=== PATIENT | male | born 1940 | race Caucasian/White ===

== ENCOUNTER 2021-11-17 11:57 | Inpatient (IN) ==
--- NOTE | 2021-11-17 12:36 | XRay Report ---
XR chest 1V portable CLINICAL HISTORY: Atypical chest pain TECHNIQUE: Single frontal radiograph of the chest was obtained. Comparison: None available at the time of this dictation. FINDINGS: No lines and tubes are seen. The cardiomediastinal silhouette is normal. Left pleural effusion is see n. Lungs are underinflated and there is a left retrocardiac opacity. IMPRESSION: 1. Left retrocardiac opacity which may represent atelectasis, pneumonia, and/or aspiration. 2. Left pleural effusion. ACT 112: Negative or not required by law. Electronically signed by: Arron Don M.D. 11/17/2021 12:35 PM
[2021-11-17 12:58] LABS: Basophils # (auto) 0.03 K/uL (0-0.2); Basophils % (auto) 0.5 %; Eosinophils # (auto) 0.12 K/uL (0-0.5); Eosinophils % (auto) 2.1 %; Hematocrit (blood only) 32.3 % (42-52); Hemoglobin 10.9 g/dL (14.0-18.0); Immature Granulocytes # (auto) 0.01 K/uL (0.00-0.02); Immature Granulocytes % (auto) 0.2 %; Lymphocytes # (auto) 0.85 K/uL (1.2-3.4); Mean Corpuscular Hemoglobin 30.4 pg (25-34); Mean Corpuscular Hgb Conc 33.7 g/dL (32-36); Mean Corpuscular Volume 90.2 fL (80-100); Mean Platelet Volume 10.3 fL (7.4-10.4); Monocytes # (auto) 0.75 K/uL (0.11-0.59); Monocytes % (auto) 13.3 %; Neutrophils # (auto) 3.89 K/uL (1.4-6.5); Neutrophils % (auto) 68.9 %; Platelet Count 165 K/uL (130-400); RDW Coefficient of Variation 14.3 % (11.5-14.5); RDW Standard Deviation 46.7 fL (36.4-46.3); Red Blood Count 3.58 M/uL (4.7-6.1); White Blood Count 5.65 K/uL (4.8-10.8)
[2021-11-17 13:17] LABS: Albumin Globulin Ratio 0.7 (0.9-2); Albumin Level 2.5 gm/dl (3.4-5.0); BUN Creatinine Ratio 17.8 (10-20); Bilirubin,Total 1.3 mg/dl (0.2-1.0); Calcium 7.9 mg/dl (8.5-10.1); Est GFR (African American) 56.3 ml/min; Est GFR (Non-African American) 48.5 ml/min; Globulin 3.7 gm/dl (2.5-4.0); Potassium 3.7 mmol/L (3.5-5.1); Total Protein 6.2 gm/dl (6.0-8.3)
--- NOTE | 2021-11-17 13:17 | Emergency Department Note ---
Impression & Plan CHF (congestive heart failure), Anemia, CKD (chronic kidney disease) stage 4, GFR 15-29 ml/min, Cough, Breath shortness, Pleural effusion ED Provider Note NAME: MARTHA AGUILAR AGE: 81 SEX: M : 1940 ARRIVES VIA: Walk-In INFORMANT: Patient ED PROVIDER(S): Russ Radford DO CHIEF COMPLAINT: Shortness of breath, cough HPI: Patient is an 81-year-old male with a past medical history of CKD and anemia that presents to the ER referred in by the PCP for further evaluation. Patient has been having cough for the past 2 weeks associate with shortness of breath. Shortness of breath is worse with laying flat. He can no longer lay flat as he is significantly short of breath. He denies any chest pain. The cough has been persistent and dry. He had an x-ray done as an outpatient and there were concern for CHF versus infiltrate were unclear and sent him here. His medications have been adjusted at home as he passed out several weeks ago and they have been cutting back on his medications and during which time he has been having increased swelling in the legs as well. No dysuria, urgency, or frequency. No fevers. COVID test negative. ROS: See above HPI for pertinent positives & negatives. A total of 10 systems reviewed and were otherwise negative. PAST MEDICAL HISTORY:See Below PAST SURGICAL HISTORY:See Below FAMILY HISTORY:See Below SOCIAL HISTORY:See Below HOME MEDICATIONS:See Below ALLERGIES:See Below VITALS:See Below PHYSICAL EXAMINATION: GENERAL: Sitting up in bed, alert, well appearing, well nourished, no distress, non-toxic EYE EXAM: normal conjunctiva. OROPHARYNX: no exudate, no erythema, lips, buccal mucosa, and tongue normal and mucous membranes are moist NECK: supple, no nuchal rigidity, no adenopathy, non-tender LUNGS: Diminished at bilateral bases with crackles Normal chest wall mechanics HEART: no murmurs, S1 normal and S2 normal ABDOMEN: abdomen soft, non-tender, normo-active bowel sounds, no masses, no rebound or guarding. UPPER EXTREMITIES: upper extremities are grossly normal. LOWER EXTREMITIES: No pitting edema. NEURO EXAM: Normal sensorium, cranial nerves II-XII grossly intact, normal speech, no gross weakness of arms, no gross weakness of legs. MEDICAL DECISION MAKING: Patient is an 81-year-old male who presents ER for shortness of breath. IV was established blood work was obtained. He was referred in by the PCP. Labs showed no significant leukocytosis. Mild anemia at 10.9 consistent with previous. BMP was unremarkable. BMP was unremarkable with exception of a slightly elevated BUN at 24. T bili slightly up at 1.3. LFTs were unremarkable. Troponin was negative at 0.03. Lipase negative. COVID pending. Chest x-ray shows bilateral effusions. CT of the chest shows bilateral large effusions. He does have pitting edema and this is discussed with the patient and daughter. He was updated at bedside. Be admitted for further work-up. Triage Nursing notes reviewed. Limited review of prior medical records performed Vital Signs: reviewed and remarkable for tachy Differential diagnosis: Differential diagnoses includes but is not limited to acute coronary syndrome, myocardial infarction, pericarditis, pulmonary embolus, aortic dissection, pneumonia, pneumothorax, musculoskeletal, shingles, esophageal. ER treatment provided: See below Diagnostics interpreted by me: ECG: Sinus tachycardia rate 104 Normal axis No PVCs Nonspecific ST wave changes in the inferior leads QTC 468 Cardiac Monitoring: An order was placed for continuous cardiac monitoring. The monitor shows a rate of 101 with sinusrhythm. Laboratory studies: As stated above and show below. 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 Feels Safe at Home: Yes Allergies Allergies Allergy/AdvReac Type Severity Reaction Status Date / Time omeprazole Allergy Unknown Unknown Unverified 11/17/21 14:40 pantoprazole Allergy Unknown Unknown Unverified 11/17/21 14:40 Sulfa (Sulfonamide Allergy Unknown UNKNOWN Unverified 11/17/21 14:40 Antibiotics) Home Meds Home Medications Medication Instructions Recorded Confirmed aspirin 81 mg tablet,delayed 81 mg PO DAILY 11/03/21 11/17/21 release atorvastatin 80 mg tablet 40 mg PO HS 11/03/21 11/17/21 Results & Data (ED) Vital Signs Vital Signs - 24 hr 11/17/21 12:01 11/17/21 12:24 Temperature 36.4 C L 36.7 C Temperature Source Temporal Artery Scan Oral Pulse Rate 109 H 102 H Pulse Rhythm Regular Respiratory Rate 20 18 Respiratory Depth Normal Blood Pressure [Left Arm] 133/70 Blood Pressure Mean [Left Arm] 91 Pulse Oximetry 96 96 Oxygen Delivery Method Room Air Sepsis Recent Fever Within 48 Hours No Sepsis New/Unexplained Change in Mental Status No Sepsis Action Taken by Nursing No Action Required Laboratory Data Result diagrams: 11/17/21 12:40 11/17/21 12:40 Lab Results 11/17/21 11/17/21 11/17/21 Range/Units 12:40 12:40 12:58 WBC 5.65 (4.8-10.8) K/uL RBC 3.58 L (4.7-6.1) M/uL Hgb 10.9 L (14.0-18.0) g/dL Hct 32.3 L (42-52) % MCV 90.2 (80-100) fL MCH 30.4 (25-34) pg MCHC 33.7 (32-36) g/dL RDW Std Deviation 46.7 H (36.4-46.3) fL RDW Coeff of Alberto 14.3 (11.5-14.5) % Plt Count 165 (130-400) K/uL MPV 10.3 (7.4-10.4) fL Immature Gran % (Auto) 0.2 % Neut % (Auto) 68.9 % Lymph % (Auto) 15.0 % Alfalfa % (Auto) 13.3 % Eos % (Auto) 2.1 % Baso % (Auto) 0.5 % Neut # (Auto) 3.89 (1.4-6.5) K/uL Lymph # (Auto) 0.85 L (1.2-3.4) K/uL Alfalfa # (Auto) 0.75 H (0.11-0.59) K/uL Eos # (Auto) 0.12 (0-0.5) K/uL Baso # (Auto) 0.03 (0-0.2) K/uL Immature Gran # (Auto) 0.01 (0.00-0.02) K/uL Sodium 135 L (136-145) mmol/L Potassium 3.7 (3.5-5.1) mmol/L Chloride 105 (98-107) mmol/L Carbon Dioxide 22 (21-32) mmol/L Anion Gap 8 (3-11) BUN 24 H (6-23) mg/dl Creatinine 1.35 (0.6-1.4) mg/dl Est Cr Clr Drug Dosing 39.0 ml/min Est GFR ( Amer) 56.3 ml/min Est GFR (Non-Af Amer) 48.5 ml/min BUN/Creatinine Ratio 17.8 (10-20) Glucose 114 H (70-99(Fasting)) mg/dl Calcium 7.9 L (8.5-10.1) mg/dl Total Bilirubin 1.3 H (0.2-1.0) mg/dl AST 41 H (13-39) U/L ALT 28 (7-52) U/L Alkaline Phosphatase 124 H (34-104) U/L Troponin I 0.03 (0-0.04) ng/ml B-Natriuretic Peptide 254 H (0-100) pg/ml Total Protein 6.2 (6.0-8.3) gm/dl Albumin 2.5 L (3.4-5.0) gm/dl Globulin 3.7 (2.5-4.0) gm/dl Albumin/Globulin Ratio 0.7 L (0.9-2) Lipase 22 (11-82) U/L Administered Medications Discontinued Medications Ioversol (Optiray 320 100ml) 94 ml IV ONCE ONE Stop: 11/17/21 13:53 Last Admin: 11/17/21 13:44 Dose: 94 ml Documented by: [id number] Imaging Data Radiologist's Impression: Chest X-Ray 11/17/21 12:20 XR chest 1V portable CLINICAL HISTORY: Atypical chest pain TECHNIQUE: Single frontal radiograph of the chest was obtained. Comparison: None available at the time of this dictation. FINDINGS: No lines and tubes are seen. The cardiomediastinal silhouette is normal. Left pleural effusion is seen. Lungs are underinflated and there is a left retrocardiac opacity. IMPRESSION: 1. Left retrocardiac opacity which may represent atelectasis, pneumonia, and/or aspiration. 2. Left pleural effusion. ACT 112: Negative or not required by law. Electronically signed by: Arron Don M.D. 11/17/2021 12:[address] 11/17/21 13:13 CT chest diagnostic w con CLINICAL HISTORY: ? rll infiltrate vs CHF TECHNIQUE: Multidetector row helical CT of the chest was performed. Coronal and sagittal reformations were obtained. Automated dose lowering techniques and/or adjustment according to patient size were utilized for this exam. Comparison: None available at the time of this dictation. FINDINGS: Lungs and pleura: Large bilateral pleural effusions are seen, with associated atelectasis. Heart and pericardium: Heart size is normal. No pericardial effusion. Vessels: Severe atherosclerotic changes in the aorta and coronary arteries. Mediastinum and james: Unremarkable. Chest wall and lower neck: Unremarkable. Abdomen: Partial visualization of cirrhosis and large ascites. Bones: Degenerative changes in the thoracic spine. IMPRESSION: 1. Large bilateral pleural effusions with associated atelectasis. No definite evidence of pneumonia is seen. 2. Partial visualization of cirrhosis and large ascites. ACT 112: Negative or not required by law. Electronically signed by: Arron Don M.D. 11/17/2021 1:54 PM Discharge Plan Visit Data Chief Complaint: Cough Stated Complaint: FLUID IN L LUNG, COUGH, PASBLE HEART FAILURE ED Provider: Russ Radford Discharge Problem: CHF (congestive heart failure), Anemia, CKD (chronic kidney disease) stage 4, GFR 15-29 ml/min, Cough, Breath shortness, Pleural effusion Forms Stand Alone Forms: [employer] Prescriptions Prescriptions: No Action atorvastatin 80 mg Tablet 40 mg PO HS RF: 0 aspirin [Aspir-81] 81 mg Tablet,Delayed Release (Dr/Ec) 81 mg PO DAILY RF: 0 Referrals Referrals: PCP,NO [Primary Care Provider] -
[2021-11-17] MEDS ORDERED: OPTIRAY 320 100ml IV ONE (13:52)
--- NOTE | 2021-11-17 13:56 | CT Scan Report ---
CT chest diagnostic w con CLINICAL HISTORY: ? rll infiltrate vs CHF TECHNIQUE: Multidetector row helical CT of the chest was performed. Coronal and sagittal reformations were obtained. Automated dose lowering techniques and/or adjustment according to patient size were u tilized for this exam. Comparison: None available at the time of this dictation. FINDINGS: Lungs and pleura: Large bilateral pleural effusions are seen, with associated atelectasis. Heart and pericardium: Heart size is normal. No pericardial effusion. Vessels: Severe atherosclerotic changes in the aorta and coronary arteries. Mediastinum and james: Unremarkable. Chest wall and lower neck: Unremarkable. Abdomen: Partial visualization of cirrhosis and large ascites. Bones: Degenerative changes in the thoracic spine. IMPRESSION: 1. Large bilateral pleural effusions with associated atelectasis. No definite evidence of pneumonia is seen. 2. Partial visualization of cirrhosis and large ascites. ACT 112: Negative or not required by law. Electronically signed by: Arron Don M.D. 11/17/2021 1:54 PM
[2021-11-17 14:25] LABS: Troponin I 0.03 ng/ml (0-0.04)
--- NOTE | 2021-11-17 15:00 | History & Physical Report ---
Date of Service November 17, 2021 Assessment & Plan (1) Volume overload: (2) Pleural effusion: Plan: Cough Patient is 81-year-old male with PMH DMII, HTN, dyslipidemia, CAD s/p angioplasty 1985, RO, CKD III, anemia of chronic disease presented to ER with complaint of progressive SOB, orthopnea, BLE edema x 3 weeks. Denies any known weight gain. In ER pt afebrile, no hypoxia. No leukocytosis. BNP: 254 CT Chest: Large bilateral pleural effusions with associated atelectasis. No definite evidence of pneumonia is seen. Partial visualization of cirrhosis and large ascites. DDX: CHF vs decompensated cirrhosis vs combination Cough x 3 months. Initially thought to be BILL related cough and lisinopril decreased and then discontinued. Off for 2 weeks with no change in cough. No leukocytosis. No infiltrate. COVID-19 PCR: pending. Suspect cough secondary to fluid Monitor I's & O's, daily weight, low sodium diet Lasix 20mg IV now, monitor response Echo CBC, CMP in am (3) RO (nonalcoholic steatohepatitis): (4) Ascites: Plan: History RO Patient unaware of any diagnosis of cirrhosis, ascites, portal hypertension, varices in past. Denies h/o paracentesis in past. CT Chest with partial visualization of abdomen and reports partial visualization of cirrhosis and large ascites. T: bili: 1.3, AST: 41, ALT: 28, Alk Phos: 124. INR: 1.2 Obtain US abdomen diagnostic and therapeutic paracentesis Lasix 20mg IV and monitor No abdominal pain, fever or leukocytosis. SBP less likely at this time May need to consider GI consult (5) HTN (hypertension): Plan: Recent hypotensive. Now off all meds. Previously on diltiazem. Was on HCTZ that was d/c secondary to hyponatremia. Lisinopril d/c secondary to cough. Normotensive now Monitor BP (6) CAD (coronary atherosclerotic disease): Plan: S/P angioplasty in 1985 (7) CKD (chronic kidney disease), stage III: Plan: Cr: 1.35. Outpatient PCP note reports baseline Cr: 1.5 Recent DICK on CKD with Cr up in the 2's. Metformin, HCTZ discontinued (8) Diabetes mellitus, type II: Plan: A1c: 6.7 on 08/2021 Previous on metformin which has been discontinued secondary to CKD Was started on alogliptin which was recently discontinued secondary to suspected CHF Novolog sliding scale per protocol (9) Dyslipidemia: Plan: Continue atorvastatin (10) Anemia: Plan: History anemia of chronic disease Outpatient PCP note reports normal B12, folate and iron store levels. Reported baseline>11 Hgb: 10.9 Monitor H&H DVT Prophylaxis -Heparin SQ Full Code as per discussion with pt Follows with Dr Arron Denny for routine care Pt was seen and care coordinated with Dr Springer. See addendum History of Present Illness Chief Complaint: SOB Primary Care Provider: Dr Arron Denny - [facility] Patient is 81-year-old male with PMH DMII, HTN, dyslipidemia, CAD s/p angiopl asty 1985, RO, CKD III, anemia of chronic disease presented to ER with complaint of shortness of breath x 3 weeks. Patient reports has had non- productive cough for several months. Patient followed with PCP in 08/2021 for cough. At that time it was noted that he had hyponatremia, DICK on CKD. His HCTZ was discontinued. Lisinopril was decreased from 10 mg to 5 mg with plans to discontinue secondary to possible BILL related cough. His metformin was stopped and alogliptin was started secondary to DICK. 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 Follow-up with PCP 11/04/2021 and his off diltiazem and lisinopril secondary to hypotension. Chest x-ray was obtained and showed left pleural effusion. Alogliptin was held secondary to suspected heart failure. Patient reports progressive SOB x 3 weeks. Initially started with SOB with exertion. Now with orthopnea. Has been having to sleep in recliner. He has noticed BLE edema. His daughter in law has noticed increased abdominal distention. He reports has not noticed any weight gain in past 2 weeks. Denies any further dizziness or near syncopal episodes. Denies fever/chills, diaphoresis, N/V/D/C, BRAGG, vision changes, neck pain, CP, palpitations, hemoptysis, sore throat, choking, otalgia, rhinorrhea, abdominal pain, paresthesias, weakness, extremity weakness, extremity edema, rashes, urinary symptoms. Denies any history of known cirrhosis, paracentesis. Allergies Allergy/AdvReac Type Severity Reaction Status Date / Time omeprazole Allergy Unknown Unknown Unverified 11/17/21 14:40 pantoprazole Allergy Unknown Unknown Unverified 11/17/21 14:40 Sulfa (Sulfonamide Allergy Unknown UNKNOWN Unverified 11/17/21 14:40 Antibiotics) Home Medications Medication Instructions Recorded Confirmed Type aspirin 81 mg tablet,delayed 81 mg PO DAILY 11/03/21 11/17/21 History release atorvastatin 80 mg tablet 40 mg PO HS 11/03/21 11/17/21 History Past Med/Surg History Medical History (Updated 11/17/21 @ 16:25 by Melida Reeves PA-C) Anemia CAD (coronary atherosclerotic disease) CKD (chronic kidney disease), stage III Diabetes mellitus, type II Dyslipidemia HTN (hypertension) RO (nonalcoholic steatohepatitis) Surgical History (Updated 11/17/21 @ 16:02 by Melida Reeves PA-C) H/O coronary angioplasty Hx of tonsillectomy Social History Smoking Status: Never smoker Hx Alcohol Use: No Hx Substance Use: No Preferred Language: Czech 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 Safe at Home: Yes Review of Systems Review of Systems: All systems reviewed & are unremarkable except as noted in HPI & below Physical Exam Physical Exam: General: no distress, WDWN Head: normocephalic, atraumatic Eyes: PERRL, EOM's intact, conjunctiva non-injected, anicteric ENT: normal inspection external ears, nose, mucous membranes moist Neck: supple, trachea midline, non-tender Lungs: no respiratory distress with sitting upright, +orthopnea with supine position, diminished breath sounds bilateral bases CV: RRR, no murmur, 2+ pretibial edema Abd: +distended, normal BS, soft, non-tender to palpation Ext: no cyanosis, no calf tenderness Neuro: A&O x 3, no focal deficits noted, normal affect Skin: warm, dry Results & Data Results & Data ([facility]) Vital Signs (Past 12 Hours) Vital Signs Temp Pulse Resp BP Pulse Ox 11/17/21 12:24 36.7 C 102 H 18 133/70 96 11/17/21 12:01 36.4 C L 109 H 20 96 Laboratory Results Short CBC 11/17/21 Range/Units 12:40 WBC 5.65 (4.8-10.8) K/uL Hgb 10.9 L (14.0-18.0) g/dL Hct 32.3 L (42-52) % Plt Count 165 (130-400) K/uL BMP 11/17/21 12:40 Sodium 135 L Potassium 3.7 Chloride 105 Carbon Dioxide 22 BUN 24 H Creatinine 1.35 Glucose 114 H Calcium 7.9 L Cardiac Enzymes 11/17/21 Range/Units 12:40 Troponin I 0.03 (0-0.04) ng/ml Liver Function 11/17/21 Range/Units 12:40 Total Bilirubin 1.3 H (0.2-1.0) mg/dl AST 41 H (13-39) U/L ALT 28 (7-52) U/L Alkaline Phosphatase 124 H (34-104) U/L Albumin 2.5 L (3.4-5.0) gm/dl Diagnostic Findings Chest X-Ray 11/17/21 12:20 XR chest 1V portable CLINICAL HISTORY: Atypical chest pain TECHNIQUE: Single frontal radiograph of the chest was obtained. Comparison: None available at the time of this dictation. FINDINGS: No lines and tubes are seen. The cardiomediastinal silhouette is normal. Left pleural effusion is seen. Lungs are underinflated and there is a left retrocardiac opacity. IMPRESSION: 1. Left retrocardiac opacity which may represent atelectasis, pneumonia, and/or aspiration. 2. Left pleural effusion. ACT 112: Negative or not required by law. Electronically signed by: Arron Don M.D. 11/17/2021 12:[address] 11/17/21 13:13 CT chest diagnostic w con CLINICAL HISTORY: ? rll infiltrate vs CHF TECHNIQUE: Multidetector row helical CT of the chest was performed. Coronal and sagittal reformations were obtained. Automated dose lowering techniques and/or adjustment according to patient size were utilized for this exam. Comparison: None available at the time of this dictation. FINDINGS: Lungs and pleura: Large bilateral pleural effusions are seen, with associated atelectasis. Heart and pericardium: Heart size is normal. No pericardial effusion. Vessels: Severe atherosclerotic changes in the aorta and coronary arteries. Mediastinum and james: Unremarkable. Chest wall and lower neck: Unremarkable. Abdomen: Partial visualization of cirrhosis and large ascites. Bones: Degenerative changes in the thoracic spine. IMPRESSION: 1. Large bilateral pleural effusions with associated atelectasis. No definite evidence of pneumonia is seen. 2. Partial visualization of cirrhosis and large ascites. ACT 112: Negative or not required by law. Electronically signed by: Arron Don M.D. 11/17/2021 1:54 PM Supervising Physician Co-Signing Physician Notes I have seen and examined the patient and have discussed the case with the provider above. I agree with the assessment and plan as stated. 81 yo M with hypervolemia and CHF syndrome evidenced by new onset orthopnea (sleeping in a recliner), dyspnea on exertion, and lower extremity edema. Also with cirrhosis that is a new diagnosis and ascites present with positive fluid wave on exam. Denies abd pain, fevers or chills. GRIGSBY with significantly decreased exercise tolerance. Reports cannot walk but a few feet without dyspnea. Occasional dry cough. Physical exam reveals WNWD in NAD, no tachypnea. Clear lungs to auscultation with diminished breath sounds at the bases bilaterally. CV S1/2 heard without m/g/r. 2+ pitting edema to bilateral lower extremities. Protuberant nontender abdomen that is not distended. +fluid wave. Extremities are warm and well perfused. Out of breath with minimal exertion. Mental status is clear. CN 2-12 grossly intact with no gross focal deficits. Generalized weakness with no gross focal deficits. Agree with plan for granda for strict I/O and comfort of patient, Lasix, echo, paracentesis in am. Continue care plan based on findings from diagnostic studies. Confirmed full code on admission. Son was at bedside and care plan explained with all questions answered. DO Gian (1) Anemia Anemia type: unspecified type Qualified Code(s): D64.9 - Anemia, unspecified
[2021-11-17 16:37] LABS: Influenza A virus by PCR Negative (Neg); Influenza B virus by PCR Negative (Neg); RSV by PCR Negative (Neg); SARS CoV2 RNA(COVID-19) InHosp NEGATIVE (Negative)
[2021-11-17] MEDS ORDERED: FUROSEMIDE INJ 20 MG/2 ML VIAL IV ONE (16:50)
[2021-11-17 16:54] LABS: INR 1.2 (0.9-1.1); Partial Thromboplastin Ratio 1.2; Partial Thromboplastin Time 30.4 Seconds (21.0-31.0)
[2021-11-17] MEDS ORDERED: FUROSEMIDE 40 MG/4 ML VIAL IV ONE (18:15)
[2021-11-17] MEDS ORDERED: ACETAMINOPHEN 325 MG TAB PO PRN (18:27)
[2021-11-17] MEDS ORDERED: CARBOHYDRATES FOR HYPOGLYCEMIA PO PRN (18:27)
[2021-11-17] MEDS ORDERED: POLYETHYLENE (MIRALAX) 17 GM PACK PO PRN (18:27)
[2021-11-17] MEDS ORDERED: GLUCAGON FOR INJ 1 MG VIAL SQ PRN (18:27)
[2021-11-17] MEDS ORDERED: DEXTROSE 50% 50 ML SYRINGE IV PRN (18:27)
[2021-11-17] MEDS ORDERED: GLUCOSE 10 TABS/TUBE PO PRN (18:27)
[2021-11-17] MEDS ORDERED: GLUCOSE 40% GEL 15 GM TUBE PO PRN (18:27)
[2021-11-17] MEDS: INSULIN ASPART PER UNIT SC SCH ×2 (19:52→22:41)
[2021-11-17] MEDS: HEPARIN SOD 5,000 UNIT/0.5 ML VIAL SQ SCH (22:31)
[2021-11-17] MEDS: ATORVASTATIN 40 MG TAB PO SCH (22:31)
--- NOTE | 2021-11-18 06:08 | Electrocardiogram Report ---
Test Reason : Blood Pressure : / mmHG Vent. Rate : 104 BPM Atrial Rate : 104 BPM P-R Int : 142 ms QRS Dur : 072 ms QT Int : 356 ms P-R-T Axes : 025 033 043 degrees QTc Int : 468 ms Sinus tachycardia Low voltage QRS Cannot rule out Anterior infarct , age undetermined Abnormal ECG When compared with ECG of 03-NOV-2021 09:28, Premature ventricular complexes are no longer Present Vent. rate has increased BY 44 BPM Minimal criteria for Anterior infarct are now Present Confirmed by Andrew Michaud ([id number]) on 11/18/2021 6:07:49 AM Referred By: ED Confirmed By:Andrew Michaud
[2021-11-18 06:18] LABS: Hematocrit (blood only) 31.3 % (42-52); Hemoglobin 10.6 g/dL (14.0-18.0); Mean Corpuscular Hemoglobin 30.5 pg (25-34); Mean Corpuscular Hgb Conc 33.9 g/dL (32-36); Mean Corpuscular Volume 89.9 fL (80-100); Mean Platelet Volume 10.5 fL (7.4-10.4); Platelet Count 154 K/uL (130-400); RDW Coefficient of Variation 14.5 % (11.5-14.5); RDW Standard Deviation 47.2 fL (36.4-46.3); Red Blood Count 3.48 M/uL (4.7-6.1); White Blood Count 5.66 K/uL (4.8-10.8)
[2021-11-18 06:54] LABS: Albumin Globulin Ratio 0.7 (0.9-2); Albumin Level 2.3 gm/dl (3.4-5.0); BUN Creatinine Ratio 16.7 (10-20); Bilirubin,Total 1.5 mg/dl (0.2-1.0); Calcium 7.8 mg/dl (8.5-10.1); Creatinine Clr Calc Pharmacy 39.9 ml/min; Est GFR (African American) 54.8 ml/min; Est GFR (Non-African American) 47.3 ml/min; Globulin 3.4 gm/dl (2.5-4.0); Potassium 3.8 mmol/L (3.5-5.1); Total Protein 5.7 gm/dl (6.0-8.3)
[2021-11-18] MEDS: FUROSEMIDE 40 MG/4 ML VIAL IV SCH (07:58)
[2021-11-18] MEDS: HEPARIN SOD 5,000 UNIT/0.5 ML VIAL SQ SCH ×2 (07:58→20:41)
[2021-11-18] MEDS: ASPIRIN 81 MG ECTAB PO SCH (07:58)
[2021-11-18] MEDS ORDERED: FUROSEMIDE INJ 20 MG/2 ML VIAL IV SCH (09:00)
[2021-11-18] MEDS: INSULIN ASPART PER UNIT SC SCH ×4 (09:10→20:37)
--- NOTE | 2021-11-18 10:02 | Ultrasound Report ---
ULTRASOUND GUIDED DIAGNOSTIC AND THERAPEUTIC PARACENTESIS CLINICAL HISTORY: Ascites. COMPARISON STUDY: CT of the abdomen and pelvis February 19, 2013. PROCEDURE: The risks, benefits, and alternatives to the procedure were discussed with the patient inc luding the risk of bleeding, infection and injury to adjacent structures. The patient agreed to the procedure and informed written consent was obtained. Following real-time ultrasound localization, the skin of the right lower quadrant was prepped and draped. Following local anesthesia with Xylocaine, the sheath paracentesis needle was inserted and approximately 3.2 liters of straw-colored fluid was r emoved by vacuum suction. The patient tolerated the procedure well and no immediate complications were evident. IMPRESSION: Ultrasound-guided paracentesis with removal of 3.2 liters of ascites. 1 L of ascites was sent to the laboratory for analysis as ordered. ACT 112: Negative or not required by law. Electronically signed by: Ammon Morales M.D. 11/18/2021 10:01 AM
[2021-11-18 10:38] LABS: Albumin Peritoneal Fluid < 0.6 g/dl; Glucose Peritoneal Fluid 112 mg/dl
[2021-11-18 10:43] LABS: LDH Peritoneal Fluid 75 U/L; Total Protein Peritoneal Fluid 1.2 g/dl
[2021-11-18 11:08] LABS: Appearance Peritoneal Fluid CLOUDY; Basophils, Fluid 0 %; Color Peritoneal Fluid AMBER; Eosinophils, Fluid 0 %; Lymphocytes, Fluid 29 %; Mono,Macrophage,Mesothelial 49 %; Neutrophils, Fluid 22 %; RBC Peritoneal Fluid (A) 6000 /uL; WBC Peritoneal Fluid (A) 326 /ul (0-300)
--- NOTE | 2021-11-18 14:24 | Hospitalist Progress Note ---
Date of Service November 18, 2021 Assessment & Plan (1) Volume overload: (2) Pleural effusion: Plan: Cough Patient is 81-year-old male with PMH DMII, HTN, dyslipidemia, CAD s/p angioplasty 1985, RO, CKD III, anemia of chronic disease presented to ER with complaint of progressive SOB, orthopnea, BLE edema x 3 weeks. Denies any known weight gain. In ER pt afebrile, no hypoxia. No leukocytosis. BNP: 254 CT Chest: Large bilateral pleural effusions with associated atelectasis. No definite evidence of pneumonia is seen. Partial visualization of cirrhosis and large ascites. DDX: CHF vs decompensated cirrhosis vs combination Cough x 3 months. Initially thought to be BILL related cough and lisinopril decreased and then discontinued. Off for 2 weeks with no change in cough. No leukocytosis. No infiltrate. COVID-19 PCR: HEAD: No headache, dizziness, or head injury.. Suspect cough secondary to fluid Monitor I's & O's, daily weight, low sodium diet Lasix 20mg IV now, monitor response Echo (3) RO (nonalcoholic steatohepatitis): (4) Ascites: Plan: History RO Patient unaware of any diagnosis of cirrhosis, ascites, portal hypertension, varices in past. Denies h/o paracentesis in past. CT Chest with partial visualization of abdomen and reports partial visualization of cirrhosis and large ascites. T: bili: 1.3, AST: 41, ALT: 28, Alk Phos: 124. INR: 1.2 US abdomen diagnostic and therapeutic paracentesis Lasix 20mg IV and monitor No abdominal pain, fever or leukocytosis. SBP less likely at this time (5) HTN (hypertension): Plan: Recent hypotensive. Now off all meds. Previously on diltiazem. Was on HCTZ that was d/c secondary to hyponatremia. Lisinopril d/c secondary to cough. Normotensive now Monitor BP (6) CAD (coronary atherosclerotic disease): Plan: S/P angioplasty in 1985 (7) CKD (chronic kidney disease), stage III: Plan: Cr: 1.35. Outpatient PCP note reports baseline Cr: 1.5 Recent DICK on CKD with Cr up in the 2's. Metformin and HCTZ discontinued (8) Diabetes mellitus, type II: Plan: A1c: 6.7 on 08/2021 Previous on metformin which has been discontinued secondary to CKD Was started on alogliptin which was recently discontinued secondary to suspected CHF Novolog sliding scale per protocol (9) Dyslipidemia: Plan: Continue atorvastatin (10) Anemia: Plan: History anemia of chronic disease Outpatient PCP note reports normal B12, folate and iron store levels. Reported baseline>11 Hgb: 10.9 Monitor H&H DVT Prophylaxis -Heparin SQ Full Code as per discussion with pt Follows with Dr Arron Denny for routine care Pt was seen and care coordinated with Dr Springer. See addendum Admission and Anticipated Discharge Date Admission Date: November 17, 2021 Subjective Patient seen, feeling better than yesterday. Results & Data Results & Data ([facility]) Vital Signs (Past 12 Hours) Vital Signs Pulse Resp BP Pulse Ox Pulse Ox 11/18/21 07:49 105 H 22 124/77 94 11/18/21 03:21 108 H 20 94 11/18/21 02:30 101 H 20 91/73 L 94 94 (1) Anemia Anemia type: unspecified type Qualified Code(s): D64.9 - Anemia, unspecified
[2021-11-18] MEDS: ATORVASTATIN 40 MG TAB PO SCH (20:41)
[2021-11-19 07:21] LABS: INR 1.3 (0.9-1.1); Prothrombin Time 12.8 Seconds (9.0-12.0)
[2021-11-19 07:30] LABS: Albumin Globulin Ratio 0.7 (0.9-2); Albumin Level 2.2 gm/dl (3.4-5.0); BUN Creatinine Ratio 17.2 (10-20); Bilirubin,Total 1.4 mg/dl (0.2-1.0); Calcium 7.6 mg/dl (8.5-10.1); Creatinine Clr Calc Pharmacy 33.8 ml/min; Est GFR (African American) 44.8 ml/min; Est GFR (Non-African American) 38.7 ml/min; Globulin 3.3 gm/dl (2.5-4.0); Potassium 3.7 mmol/L (3.5-5.1); Total Protein 5.5 gm/dl (6.0-8.3)
[2021-11-19] MEDS: INSULIN ASPART PER UNIT SC SCH ×4 (07:50→20:07)
[2021-11-19] MEDS: ASPIRIN 81 MG ECTAB PO SCH (07:50)
[2021-11-19] MEDS: HEPARIN SOD 5,000 UNIT/0.5 ML VIAL SQ SCH ×2 (07:51→20:08)
[2021-11-19] MEDS: FUROSEMIDE 40 MG/4 ML VIAL IV SCH (07:51)
--- NOTE | 2021-11-19 08:54 | Gastrointestinal Consultation ---
Date of Consultation November 19, 2021 Assessment & Plan (1) Ascites: 81 year old male w/ history of T2DM, HTN, dyslipidemia, CAD s/p angioplasty 1985, RO, CKD III, anemia of chronic disease admitted w/ ascites and SOB. Not formally diagnosed with liver disease but ABD US in 2013 at [facility] showed fatty liver and suspected liver fibrosis. Paracentesis 11/18 w/o evidence of SBP, SAAG 11/06 w/ low protein suspicious of liver disease. Please add on cytology collection to ascitic fluid ABD US Continue IV diuresis while admitted Consider low dose PO diuretics as OP but he notes issues with hypotension of recent, perhaps should be evaluated by PCP prior to initiation Low NA diet less than 2G No ETOH Tylenol less than 2G No NSAIDs OP GI follow up, OP EGD can be arranged at that appointment Will sign off. Recall as needed. Thank you for allowing us to participate in the care of this patient. Please call with any acute changes, questions or concerns. Please see addendum below with additional recommendation from my supervising physician. Supervising Physician Co-Signing Physician Notes I have seen and examined the patient with VENTURA Maki whose note reflects our findings and plan. Patient with fatt yliver in past and now admitted with CHF and volume overload as well as new ascites. Fluid studies s/o liver disease. Obtain liver imaging and continue with diuresis. Will need outpatient follow up. Outpatient EGD to be arranged to evaluate for varices. History of Present Illness Reason for Consultation: ?cirrhosis Requesting Physician: Pete Attending Physician: Alan Freeman DO History of Present Illness 81 year old male with history ot T2DM, HTN, dyslipidemia, CAD s/p angioplasty 1985, RO, CKD III, anemia of chronic disease admitted through the ED w/ SOB - GI asked to evaluate as he was noted to have large ascites. Pt notes that he has been told he has fatty liver in the past but was never formally diagnosed with cirrhosis. Does not recall seeing a GI/Hep department in past and denies any recent imaging or endoscopic evaluation. Feeling well from GI standpoint. Denies abd pain, nausea, vomiting. No GERD, dysphagia. Denies ETOH use Paracentesis 2021: no SBP, SAAG 1.7 w/ low total protein suspicious for liver disease ABD US 2013: Fatty infiltration/fibrosis of the liver Allergies Allergy/AdvReac Type Severity Reaction Status Date / Time omeprazole Allergy Unknown Unknown Unverified 11/17/21 14:40 pantoprazole Allergy Unknown Unknown Unverified 11/17/21 14:40 Sulfa (Sulfonamide Allergy Unknown UNKNOWN Unverified 11/17/21 14:40 Antibiotics) Home Medications Medication Instructions Recorded Confirmed Type aspirin 81 mg tablet,delayed 81 mg PO DAILY 11/03/21 11/17/21 History release atorvastatin 80 mg tablet 40 mg PO HS 11/03/21 11/17/21 History Patient History Medical History (Updated 11/18/21 @ 00:07 by Bill John) Anemia CAD (coronary atherosclerotic disease) CKD (chronic kidney disease), stage III Diabetes mellitus, type II Dyslipidemia HTN (hypertension) RO (nonalcoholic steatohepatitis) Surgical History (Updated 11/17/21 @ 16:02 by Melida Reeves PA-C) H/O coronary angioplasty Hx of tonsillectomy Social History Smoking Status: Never smoker Hx Alcohol Use: No Hx Substance Use: No Preferred Language: Wolof Communication Ability: Effective 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 marital status: Current Living Situation: Alone current occupational status: employed 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) Vital Signs (Past 12 Hours) Vital Signs Temp Pulse Pulse Resp BP Pulse Ox Pulse Ox 11/19/21 07:11 36.8 C 101 H 20 116/72 93 11/19/21 03:00 36.9 C 106 H 18 115/52 L 94 11/19/21 02:00 96 11/18/21 23:50 36.7 C 102 H 18 108/69 94 11/18/21 22:54 103 H 11/18/21 21:30 109 H Laboratory Results 11/19/21 11/19/21 11/19/21 Range/Units 07:02 06:36 06:36 PT 12.8 H (9.0-12.0) Seconds INR 1.3 H (0.9-1.1) Sodium 137 (136-145) mmol/L Potassium 3.7 (3.5-5.1) mmol/L Chloride 105 (98-107) mmol/L Carbon Dioxide 25 (21-32) mmol/L Anion Gap 7 (3-11) BUN 28 H (6-23) mg/dl Creatinine 1.63 H (0.6-1.4) mg/dl Est Cr Clr Drug Dosing 33.8 ml/min Est GFR ( Amer) 44.8 ml/min Est GFR (Non-Af Amer) 38.7 ml/min BUN/Creatinine Ratio 17.2 (10-20) Glucose 99 (70-99(Fasting)) mg/dl POC Glucose 108 H (70-99) mg/dl Calcium 7.6 L (8.5-10.1) mg/dl Total Bilirubin 1.4 H (0.2-1.0) mg/dl AST 36 (13-39) U/L ALT 27 (7-52) U/L Alkaline Phosphatase 113 H (34-104) U/L Total Protein 5.5 L (6.0-8.3) gm/dl Albumin 2.2 L (3.4-5.0) gm/dl Globulin 3.3 (2.5-4.0) gm/dl Albumin/Globulin Ratio 0.7 L (0.9-2) Fluid Neutrophils % % Fluid Lymphocytes % % Fluid Eosinophils % % Fluid Basophils % % Fluid Meso/Macro/[place] % % Fluid Comment Peritoneal Color Peritoneal Appearance Peritoneal WBC (0-300) /ul Peritoneal RBC /uL Peritoneal Tot Protein g/dl Peritoneal Albumin g/dl Peritoneal LDH U/L Peritoneal Glucose mg/dl 11/18/21 11/18/21 11/18/21 Range/Units 20:35 17:43 12:28 PT (9.0-12.0) Seconds INR (0.9-1.1) Sodium (136-145) mmol/L Potassium (3.5-5.1) mmol/L Chloride (98-107) mmol/L Carbon Dioxide (21-32) mmol/L Anion Gap (3-11) BUN (6-23) mg/dl Creatinine (0.6-1.4) mg/dl Est Cr Clr Drug Dosing ml/min Est GFR ( Amer) ml/min Est GFR (Non-Af Amer) ml/min BUN/Creatinine Ratio (10-20) Glucose (70-99(Fasting)) mg/dl POC Glucose 236 H 103 H 121 H (70-99) mg/dl Calcium (8.5-10.1) mg/dl Total Bilirubin (0.2-1.0) mg/dl AST (13-39) U/L ALT (7-52) U/L Alkaline Phosphatase (34-104) U/L Total Protein (6.0-8.3) gm/dl Albumin (3.4-5.0) gm/dl Globulin (2.5-4.0) gm/dl Albumin/Globulin Ratio (0.9-2) Fluid Neutrophils % % Fluid Lymphocytes % % Fluid Eosinophils % % Fluid Basophils % % Fluid Meso/Macro/[place] % % Fluid Comment Peritoneal Color Peritoneal Appearance Peritoneal WBC (0-300) /ul Peritoneal RBC /uL Peritoneal Tot Protein g/dl Peritoneal Albumin g/dl Peritoneal LDH U/L Peritoneal Glucose mg/dl 11/18/21 Range/Units 09:30 PT (9.0-12.0) Seconds INR (0.9-1.1) Sodium (136-145) mmol/L Potassium (3.5-5.1) mmol/L Chloride (98-107) mmol/L Carbon Dioxide (21-32) mmol/L Anion Gap (3-11) BUN (6-23) mg/dl Creatinine (0.6-1.4) mg/dl Est Cr Clr Drug Dosing ml/min Est GFR ( Amer) ml/min Est GFR (Non-Af Amer) ml/min BUN/Creatinine Ratio (10-20) Glucose (70-99(Fasting)) mg/dl POC Glucose (70-99) mg/dl Calcium (8.5-10.1) mg/dl Total Bilirubin (0.2-1.0) mg/dl AST (13-39) U/L ALT (7-52) U/L Alkaline Phosphatase (34-104) U/L Total Protein (6.0-8.3) gm/dl Albumin (3.4-5.0) gm/dl Globulin (2.5-4.0) gm/dl Albumin/Globulin Ratio (0.9-2) Fluid Neutrophils % 22 % Fluid Lymphocytes % 29 % Fluid Eosinophils % 0 % Fluid Basophils % 0 % Fluid Meso/Macro/[place] % 49 % Fluid Comment Peritoneal Color PENELOPE Peritoneal Appearance CLOUDY Peritoneal WBC 326 H (0-300) /ul Peritoneal RBC 6000 /uL Peritoneal Tot Protein 1.2 g/dl Peritoneal Albumin < 0.6 g/dl Peritoneal LDH 75 U/L Peritoneal Glucose 112 mg/dl
--- NOTE | 2021-11-19 10:37 | Ultrasound Report ---
ABDOMINAL ULTRASOUND, RIGHT UPPER QUADRANT HISTORY: ?cirrhosis. COMPARISON: Abdomen and pelvis CT 02/19/2013. Chest CT 11/17/2021. FINDINGS: Pancreas: The pancreatic head and tail are obscured by overlying bowel gas. The remaining portions of the pancreas are within normal limits. Liver: Nodular contour to the liver consistent with cirrhosis. The liver demonstrates a coarse echote xture. No definite hepatic masses. Gallbladder: Slightly prominent gallbladder wall measuring 3 mm likely due to the patient's cirrhosis . No gallstones identified. CBD: 5 mm. Right kidney: No hydronephrosis. Miscellaneous: Small amount of ascites and a right pleural effusion. IMPRESSION: 1. Cirrhotic liver morphology with a small amount of ascites and a right pleural effusion. 2. No gallstones. ACT 112: Negative or not required by law. Electronically signed by: Chris Simeon M.D. 11/19/2021 10:35 AM
--- NOTE | 2021-11-19 11:02 | Hospitalist Progress Note ---
Date of Service November 19, 2021 Assessment & Plan (1) Volume overload: (2) Pleural effusion: Plan: Cough Patient is 81-year-old male with PMH DMII, HTN, dyslipidemia, CAD s/p angioplasty 1985, RO, CKD III, anemia of chronic disease presented to ER with complaint of progressive SOB, orthopnea, BLE edema x 3 weeks. Denies any known weight gain. In ER pt afebrile, no hypoxia. No leukocytosis. BNP: 254 CT Chest: Large bilateral pleural effusions with associated atelectasis. No definite evidence of pneumonia is seen. Partial visualization of cirrhosis and large ascites. DDX: CHF vs decompensated cirrhosis vs combination Cough x 3 months. Initially thought to be BILL related cough and lisinopril decreased and then discontinued. Off for 2 weeks with no change in cough. No leukocytosis. No infiltrate. COVID-19 PCR: HEAD: No headache, dizziness, or head injury.. Suspect cough secondary to fluid Monitor I's & O's, daily weight, low sodium diet Lasix 20mg Daily and aldactone Echo done EF 65-70% CXR today (3) RO (nonalcoholic steatohepatitis): (4) Ascites: Plan: History RO Patient unaware of any diagnosis of cirrhosis, ascites, portal hypertension, varices in past. Denies h/o paracentesis in past. CT Chest with partial visualization of abdomen and reports partial visualization of cirrhosis and large ascites. T: bili: 1.3, AST: 41, ALT: 28, Alk Phos: 124. INR: 1.2 US abdomen diagnostic and therapeutic paracentesis Lasix 20mg IV add aldactone No abdominal pain, fever or leukocytosis. SBP less likely at this time (5) HTN (hypertension): Plan: Recent hypotensive. Now off all meds. Previously on diltiazem. Was on HCTZ that was d/c secondary to hyponatremia. Lisinopril d/c secondary to cough. Normotensive now Monitor BP (6) CAD (coronary atherosclerotic disease): Plan: S/P angioplasty in 1985 (7) CKD (chronic kidney disease), stage III: Plan: Cr: 1.63. Outpatient PCP note reports baseline Cr: 1.5 Recent DICK on CKD with Cr up in the 2's. Metformin and HCTZ discontinued (8) Diabetes mellitus, type II: Plan: A1c: 6.7 on 08/2021 Previous on metformin which has been discontinued secondary to CKD Was started on alogliptin which was recently discontinued secondary to suspected CHF Novolog sliding scale per protocol (9) Dyslipidemia: Plan: Continue atorvastatin (10) Anemia: Plan: History anemia of chronic disease Outpatient PCP note reports normal B12, folate and iron store levels. Reported baseline>11 Hgb: 10.9 Monitor H&H DVT Prophylaxis -Heparin SQ Full Code as per discussion with pt Follows with Dr Arron Denny for routine care ROS-No Headache, No Visual Changes, No Nausea, No Vomiting, No Fever, No Chills, No Neck Pain or Stiffness, No Chest Pain, No Palpitations, No SOB, No GRIGSBY, No Cough, No Sputum, No Wheezing, No Abdominal Pain, No Diarrhea, No Hematemesis, No Hemoptysis, No Unexpected Weight Loss, No Flank pain, No Melena, No Hematochezia, No Frequency, No Urgency, No Burning, No Hematuria, No Rashes, No Diaphoresis. Appetite is Normal Physical Exam Gen-AAO x 3, NAD, Afebrile Head-NCAT, EOMI, PERRLA, Anicteric Sclera, No Posterior Pharyngeal Erythema Neck-Supple, No JVD, No Thyromegaly, No Masses, No LAD, No Bruits Lungs-Clear to Auscultation Bilaterally, No Rales, No Rhonchi, No Wheezing, No Crepitus Chest-No S4, +S1, +S2, No S3, No Murmurs, No Rubs, No Gallops, No Ectopy Abdomen-Soft, Bowel Sounds Present, Non Tender, Non Distended, No Hepatomegaly, No Splenomegaly, No Palpable Masses, No Rebound, No Rigidity, No Guarding Musculoskeletal-Full Range of Motion Bilaterally, No CVAT Extremities-No Cyanosis, No Clubbing, No Edema Nuero-Cranial Nerves II-XII grossly intact, Motor WNL, DTRs WNL, Strength WNL, Non Focal Psych-Normal Mood Admission and Anticipated Discharge Date Admission Date: November 17, 2021 Subjective Patient seen, feeling better than yesterday. Results & Data Results & Data ([facility]) Vital Signs (Past 12 Hours) Vital Signs Temp Pulse Resp BP Pulse Ox Pulse Ox 11/19/21 07:11 36.8 C 101 H 20 116/72 93 11/19/21 03:00 36.9 C 106 H 18 115/52 L 94 11/19/21 02:00 96 11/18/21 23:50 36.7 C 102 H 18 108/69 94 (1) Anemia Anemia type: unspecified type Qualified Code(s): D64.9 - Anemia, unspecified
[2021-11-19] MEDS: SPIRONOLACTONE 25 MG TAB PO SCH (13:06)
--- NOTE | 2021-11-19 14:23 | XRay Report ---
TWO VIEW CHEST CLINICAL HISTORY: Pleural effusion. FINDINGS: PA and lateral chest radiographs are compared to chest x-ray and chest CT dated 11/17/2021. The heart is mildly enlarged noting atherosclerotic calcification of the thoracic aorta. The pulmonar y vasculature is noncongested. There are left larger than right pleural effusions with bibasilar cons olidation. This is similar to the 11/17/2021 examination. There is no pneumothorax. The skeletal struc tures are osteopenic. The bony thorax appears intact. Surgical anchors are present in the right humer al head. Degenerative change is noted throughout the thoracic spine. IMPRESSION: 1. Left larger than right pleural effusions with bibasilar consolidation. This is similar to the 11/17 examination. 2. Cardiomegaly. ACT 112: Negative or not required by law. Electronically signed by: Richard Tejada M.D. 11/19/2021 2:21 PM
[2021-11-19] MEDS: ATORVASTATIN 40 MG TAB PO SCH (20:08)
[2021-11-20] MEDS: ASPIRIN 81 MG ECTAB PO SCH (07:37)
[2021-11-20] MEDS: SPIRONOLACTONE 25 MG TAB PO SCH (07:37)
[2021-11-20] MEDS: HEPARIN SOD 5,000 UNIT/0.5 ML VIAL SQ SCH (07:37)
[2021-11-20] MEDS: FUROSEMIDE 40 MG/4 ML VIAL IV SCH (07:39)
[2021-11-20] MEDS: INSULIN ASPART PER UNIT SC SCH ×4 (07:43→20:53)
[2021-11-20 08:27] LABS: Hematocrit (blood only) 33.6 % (42-52); Hemoglobin 11.2 g/dL (14.0-18.0); Mean Corpuscular Hemoglobin 30.5 pg (25-34); Mean Corpuscular Hgb Conc 33.3 g/dL (32-36); Mean Corpuscular Volume 91.6 fL (80-100); Mean Platelet Volume 10.8 fL (7.4-10.4); Platelet Count 153 K/uL (130-400); RDW Coefficient of Variation 14.6 % (11.5-14.5); RDW Standard Deviation 48.6 fL (36.4-46.3); Red Blood Count 3.67 M/uL (4.7-6.1); White Blood Count 5.42 K/uL (4.8-10.8)
[2021-11-20 08:46] LABS: Albumin Globulin Ratio 0.7 (0.9-2); Albumin Level 2.3 gm/dl (3.4-5.0); BUN Creatinine Ratio 18.4 (10-20); Bilirubin,Total 1.6 mg/dl (0.2-1.0); Calcium 7.6 mg/dl (8.5-10.1); Creatinine Clr Calc Pharmacy 33.8 ml/min; Est GFR (African American) 44.8 ml/min; Est GFR (Non-African American) 38.7 ml/min; Globulin 3.5 gm/dl (2.5-4.0); Potassium 3.8 mmol/L (3.5-5.1); Total Protein 5.8 gm/dl (6.0-8.3)
--- NOTE | 2021-11-20 08:50 | Gastroenterology Progress Note ---
Date of Service November 20, 2021 Assessment & Plan (1) Ascites: Plan: 81 year old male w/ history of T2DM, HTN, dyslipidemia, CAD s/p angioplasty 1985, RO, CKD III, anemia of chronic disease admitted w/ ascites and SOB. Not formally diagnosed with liver disease but ABD US in 2013 at [facility] showed fatty liver and suspected liver fibrosis. Paracentesis 11/18 w/o evidence of SBP, SAAG 11/06 w/ low protein suspicious of liver disease. ABD US shows cirrhosis without mass He would like to talk to dietary team about low NA diet as he prepares his own meals Please add on cytology collection to ascitic fluid Continue IV diuresis while admitted Consider low dose PO diuretics as OP but he notes issues with hypotension of recent, perhaps should be evaluated by PCP prior to initiation Low NA diet less than 2G No ETOH Tylenol less than 2G No NSAIDs OP GI follow up, OP EGD can be arranged at that appointment He notes [facility] with [facility] GI Will sign off. Recall as needed. Thank you for allowing us to participate in the care of this patient. Please call with any acute changes, questions or concerns. Please see addendum below with additional recommendation from my supervising physician. Admission and Anticipated Discharge Date Admission Date: November 17, 2021 Supervising Physician Co-Signing Physician Notes OP follow up in HEPATOLOGY clinic Subjective Feeling better today No GI concerns reported ABD US shows cirrhosis without evidence of mass Review of Systems Review of Systems: All systems reviewed & are unremarkable except as noted in HPI & below Physical Exam Constitutional: WD/WN, vitals as above Respiratory: normal respiratory effort, lungs clear to auscultation Cardiovascular: RRR, no murmur, no edema Gastrointestinal (Abdomen): normal bowel sounds, soft, nontender, no hepatosplenomegaly Skin: no rashes, warm and dry Results & Data ([facility]) Vital Signs (Past 12 Hours) Vital Signs Temp Pulse Pulse Resp BP Pulse Ox Pulse Ox 11/20/21 07:57 36.6 C 100 H 20 112/73 94 11/20/21 03:58 36.9 C 101 H 15 108/71 93 11/20/21 02:00 94 11/19/21 23:23 36.8 C 102 H 16 117/79 94 11/19/21 23:02 105 H Laboratory Results 11/20/21 11/20/21 11/20/21 Range/Units 08:11 08:11 07:41 WBC 5.42 (4.8-10.8) K/uL RBC 3.67 L (4.7-6.1) M/uL Hgb 11.2 L (14.0-18.0) g/dL Hct 33.6 L (42-52) % MCV 91.6 (80-100) fL MCH 30.5 (25-34) pg MCHC 33.3 (32-36) g/dL RDW Std Deviation 48.6 H (36.4-46.3) fL RDW Coeff of Alberto 14.6 H (11.5-14.5) % Plt Count 153 (130-400) K/uL MPV 10.8 H (7.4-10.4) fL Sodium 133 L (136-145) mmol/L Potassium 3.8 (3.5-5.1) mmol/L Chloride 102 (98-107) mmol/L Carbon Dioxide 23 (21-32) mmol/L Anion Gap 8 (3-11) BUN 30 H (6-23) mg/dl Creatinine 1.63 H (0.6-1.4) mg/dl Est Cr Clr Drug Dosing 33.8 ml/min Est GFR ( Amer) 44.8 ml/min Est GFR (Non-Af Amer) 38.7 ml/min BUN/Creatinine Ratio 18.4 (10-20) Glucose 118 H (70-99(Fasting)) mg/dl POC Glucose 106 H (70-99) mg/dl Calcium 7.6 L (8.5-10.1) mg/dl Total Bilirubin 1.6 H (0.2-1.0) mg/dl AST 44 H (13-39) U/L ALT 28 (7-52) U/L Alkaline Phosphatase 125 H (34-104) U/L Total Protein 5.8 L (6.0-8.3) gm/dl Albumin 2.3 L (3.4-5.0) gm/dl Globulin 3.5 (2.5-4.0) gm/dl Albumin/Globulin Ratio 0.7 L (0.9-2) 11/19/21 11/19/21 11/19/21 Range/Units 19:57 16:03 11:20 WBC (4.8-10.8) K/uL RBC (4.7-6.1) M/uL Hgb (14.0-18.0) g/dL Hct (42-52) % MCV (80-100) fL MCH (25-34) pg MCHC (32-36) g/dL RDW Std Deviation (36.4-46.3) fL RDW Coeff of Alberto (11.5-14.5) % Plt Count (130-400) K/uL MPV (7.4-10.4) fL Sodium (136-145) mmol/L Potassium (3.5-5.1) mmol/L Chloride (98-107) mmol/L Carbon Dioxide (21-32) mmol/L Anion Gap (3-11) BUN (6-23) mg/dl Creatinine (0.6-1.4) mg/dl Est Cr Clr Drug Dosing ml/min Est GFR ( Amer) ml/min Est GFR (Non-Af Amer) ml/min BUN/Creatinine Ratio (10-20) Glucose (70-99(Fasting)) mg/dl POC Glucose 178 H 124 H 106 H (70-99) mg/dl Calcium (8.5-10.1) mg/dl Total Bilirubin (0.2-1.0) mg/dl AST (13-39) U/L ALT (7-52) U/L Alkaline Phosphatase (34-104) U/L Total Protein (6.0-8.3) gm/dl Albumin (3.4-5.0) gm/dl Globulin (2.5-4.0) gm/dl Albumin/Globulin Ratio (0.9-2)
[2021-11-20] MEDS ORDERED: cefTRIAXone SODIUM 2,000 MG in DEXTROSE 5% 50 ML IV SCH (09:00)
--- NOTE | 2021-11-20 12:21 | Hospitalist Progress Note ---
Date of Service November 20, 2021 Assessment & Plan (1) Volume overload: (2) Pleural effusion: Plan: Cough Patient is 81-year-old male with PMH DMII, HTN, dyslipidemia, CAD s/p angioplasty 1985, RO, CKD III, anemia of chronic disease presented to ER with complaint of progressive SOB, orthopnea, BLE edema x 3 weeks. Denies any known weight gain. In ER pt afebrile, no hypoxia. No leukocytosis. BNP: 254 CT Chest: Large bilateral pleural effusions with associated atelectasis. No definite evidence of pneumonia is seen. Partial visualization of cirrhosis and large ascites. DDX: CHF vs decompensated cirrhosis vs combination Cough x 3 months. Initially thought to be BILL related cough and lisinopril decreased and then discontinued. Off for 2 weeks with no change in cough. No leukocytosis. No infiltrate. COVID-19 PCR: HEAD: No headache, dizziness, or head injury.. Suspect cough secondary to fluid Monitor I's & O's, daily weight, low sodium diet Lasix 20mg Daily and aldactone Echo done EF 65-70% CXR showed Large effusions Pulm to see-Thoracentesis (3) RO (nonalcoholic steatohepatitis): (4) Ascites: Plan: History RO Patient unaware of any diagnosis of cirrhosis, ascites, portal hypertension, varices in past. Denies h/o paracentesis in past. CT Chest with partial visualization of abdomen and reports partial visualization of cirrhosis and large ascites. T: bili: 1.3, AST: 41, ALT: 28, Alk Phos: 124. INR: 1.2 US abdomen diagnostic and therapeutic paracentesis Lasix 20mg IV add aldactone No abdominal pain, fever or leukocytosis. SBP less likely at this time (5) HTN (hypertension): Plan: Recent hypotensive. Now off all meds. Previously on diltiazem. Was on HCTZ that was d/c secondary to hyponatremia. Lisinopril d/c secondary to cough. Normotensive now Monitor BP (6) CAD (coronary atherosclerotic disease): Plan: S/P angioplasty in 1985 (7) CKD (chronic kidney disease), stage III: Plan: Cr: 1.63. Outpatient PCP note reports baseline Cr: 1.5 Recent DICK on CKD with Cr up in the 2's. Metformin and HCTZ discontinued (8) Diabetes mellitus, type II: Plan: A1c: 6.7 on 08/2021 Previous on metformin which has been discontinued secondary to CKD Was started on alogliptin which was recently discontinued secondary to suspected CHF Novolog sliding scale per protocol (9) Dyslipidemia: Plan: Continue atorvastatin (10) Anemia: Plan: History anemia of chronic disease Outpatient PCP note reports normal B12, folate and iron store levels. Reported baseline>11 Hgb: 10.9 Monitor H&H DVT Prophylaxis -Heparin SQ Full Code as per discussion with pt Follows with Dr Arron Denny for routine care ROS-No Headache, No Visual Changes, No Nausea, No Vomiting, No Fever, No Chills, No Neck Pain or Stiffness, No Chest Pain, No Palpitations, No SOB, No GRIGSBY, No Cough, No Sputum, No Wheezing, No Abdominal Pain, No Diarrhea, No Hematemesis, No Hemoptysis, No Unexpected Weight Loss, No Flank pain, No Melena, No Hematochezia, No Frequency, No Urgency, No Burning, No Hematuria, No Rashes, No Diaphoresis. Appetite is Normal Physical Exam Gen-AAO x 3, NAD, Afebrile Head-NCAT, EOMI, PERRLA, Anicteric Sclera, No Posterior Pharyngeal Erythema Neck-Supple, No JVD, No Thyromegaly, No Masses, No LAD, No Bruits Lungs-Clear to Auscultation Bilaterally, No Rales, No Rhonchi, No Wheezing, No Crepitus Chest-No S4, +S1, +S2, No S3, No Murmurs, No Rubs, No Gallops, No Ectopy Abdomen-Soft, Bowel Sounds Present, Non Tender, Non Distended, No Hepatomegaly, No Splenomegaly, No Palpable Masses, No Rebound, No Rigidity, No Guarding Musculoskeletal-Full Range of Motion Bilaterally, No CVAT Extremities-No Cyanosis, No Clubbing, No Edema Nuero-Cranial Nerves II-XII grossly intact, Motor WNL, DTRs WNL, Strength WNL, Non Focal Psych-Normal Mood Admission and Anticipated Discharge Date Admission Date: November 17, 2021 Subjective Feeling better today Results & Data Results & Data ([facility]) Vital Signs (Past 12 Hours) Vital Signs Temp Pulse Resp BP Pulse Ox Pulse Ox 11/20/21 11:45 36.6 C 105 H 18 116/77 95 11/20/21 07:57 36.6 C 100 H 20 112/73 94 11/20/21 03:58 36.9 C 101 H 15 108/71 93 11/20/21 02:00 94 (1) Anemia Anemia type: unspecified type Qualified Code(s): D64.9 - Anemia, unspecified
--- NOTE | 2021-11-20 14:26 | Pulmonary Consultation ---
Date of Consultation November 20, 2021 Assessment & Plan (1) Pleural effusion associated with hepatic disorder: (2) Volume overload: (3) Ascites: Left sided thoracentesis performed at bedside yielding 1.7 liters of cloudy pleural fluid. BP 80s/50s post procedure. Asymptomatic at this time. Will give two boluses of albumin. NS infusion discontinued. Pleural fluid studies sent including cultures, chemistries and cytology. 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 Recommend keeping as euvolemic as possible and further work up of cirrhosis. Will continue to follow. Thanks for the consult. History of Present Illness Reason for Consultation: Pleural effusions Attending Physician: Alan Freeman DO History of Present Illness 81-year-old male with a past medical history of diabetes mellitus type 2, hypertension, dyslipidemia, coronary artery disease status post stenting in 1985, with cirrhosis, CKD stage III anemia of chronic disease who presented to the ER 11/17/2021 due to shortness of breath for 3 weeks. He also had a nonproductive cough. He had a chest x-ray which showed bilateral effusions, left greater than right. He also had increasing abdominal distention. Echo completed 11/18/2021 revealed a large right and large left pleural effusion. RVSP was 43 mmHg. EF 60 to 65%. Underwent paracentesis with 3.2 L of fluid removed on 11/18/2021 by radiology. Micro from the peritoneal fluid was negative. Chest CT from 11/17/2021 was read as a large bilateral pleural effusion with atelectasis. Patient has been undergoing diuresis and chest x-ray from 11/19/2021 continues to reveal left pleural effusion. Creatinine is going up with diuresis at this time. Pulmonary is consulted for thoracentesis. Allergies Allergy/AdvReac Type Severity Reaction Status Date / Time omeprazole Allergy Unknown Unknown Unverified 11/17/21 14:40 pantoprazole Allergy Unknown Unknown Unverified 11/17/21 14:40 Sulfa (Sulfonamide Allergy Unknown UNKNOWN Unverified 11/17/21 14:40 Antibiotics) Home Medications Medication Instructions Recorded Confirmed Type aspirin 81 mg tablet,delayed 81 mg PO DAILY 11/03/21 11/17/21 History release atorvastatin 80 mg tablet 40 mg PO HS 11/03/21 11/17/21 History Patient History Medical History (Updated 11/20/21 @ 14:25 by Parker Moran MD) Anemia CAD (coronary atherosclerotic disease) CKD (chronic kidney disease), stage III Diabetes mellitus, type II Dyslipidemia HTN (hypertension) RO (nonalcoholic steatohepatitis) Pleural effusion associated with hepatic disorder Volume overload Surgical History (Updated 11/17/21 @ 16:02 by Melida Reeves PA-C) H/O coronary angioplasty Hx of tonsillectomy Social History Smoking Status: Never smoker Hx Alcohol Use: No Hx Substance Use: No Preferred Language: Armenian Communication Ability: Effective Bander Hand Required: No marital status: Current Living Situation: Alone current occupational status: employed 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 Patient is in no apparent distress. Patient is well-developed. Eyes: Pupils are equal round and reactive to light. Conjunctivae are normal. Anicteric sclera. Ears nose, mouth and throat: No obvious deformities. Neck: Trachea is midline. Visual inspection is normal. Respiratory: Diminished at the bases bilaterally. Clear to auscultation otherwise. Cardiovascular: Regular rate and rhythm. No murmurs. No edema. Gastrointestinal: Normal bowel sounds, soft, nontender and nondistended. No hepatosplenomegaly noted. Musculoskeletal: No cyanosis. Patient is able to move all extremities. Skin: No rashes, warm dry and intact. Neurologic: No obvious focal neurological deficits seen. Psychiatric: Alert and oriented x3 with a euthymic affect. Results & Data Results & Data ([facility]) Vital Signs (Past 12 Hours) Vital Signs Temp Pulse Resp BP Pulse Ox 11/20/21 11:45 36.6 C 105 H 18 116/77 95 11/20/21 07:57 36.6 C 100 H 20 112/73 94 11/20/21 03:58 36.9 C 101 H 15 108/71 93 labs, imaging and vital signs reviewed. PG Care Time/CCT Total # of Minutes Spent Total Time Spent with Patient: Total time spent is greater than 50% in coordination of care (as documented) at patient's floor/unit and/or counseling patient: Coding Level of Care Code 67463 Initial Inpt Care Lvl 3 Diagnoses Pleural effusion associated with hepatic disorder K76.9; J91.8 Volume overload E87.70 Ascites R18.8
[2021-11-20] MEDS ORDERED: SODIUM CHLORIDE 0.9% 500 ML IV ONE (15:00)
--- NOTE | 2021-11-20 16:05 | Procedure Note ---
Procedure Note Date of Service November 20, 2021 Note Procedure: Diagnostic and/or therapeutic ultrasound-guided catheter left thoracentesis [employer] Specialist: Dr. Parker Moran Indication: Pleural effusion Consent: Signed by patient and verified with timeout prior to procedure Anesthesia: 8 mL's of 1% lidocaine without epinephrine given locally Procedure: Consent was verified and timeout performed. Appropriate imaging studies were reviewed prior to the procedure. Patient was placed in a seated position and limited thoracic ultrasound was performed of the left chest. See separate imaging. The site appropriate for thoracentesis was selected. The skin was prepped and draped in normal sterile fashion. Lidocaine was used for local analgesia. Fluid was aspirated via the finder needle. A small skin rony was made with the scalpel and the catheter over the needle apparatus was advanced over the rib into the pleural space. Using the syringe one-way valve system, a total of 1700 mL's of jostin-colored fluid was removed. Procedure was terminated due to lack of flow. The catheter was removed and observed to be intact. A sterile dressing was applied. Post procedure chest x-ray was ordered. Fluid was sent for LDH, total protein, cell count, glucose, pH, cytology, AFB cultures, gram stain and culture and fungal cultures. The patient tolerated the procedure well without obvious complication. Follow-up chest x-ray ordered. Coding CPT Codes Pulmonary/Thoracic - Pulmonary and Thoracic: 04662 Thoracentesis w imaging ([id number]) [facility] [place]odes ([place]es) Pulmonary/Thoracic Procedure 1: Pulmonary and Thoracic: 81940 Thoracentesis w imaging
[2021-11-20 16:31] LABS: Glucose Pleural Fluid 144 mg/dl
[2021-11-20] MEDS ORDERED: ALBUMIN 5% 250 ML IV ONE ×2 (16:45→17:15)
[2021-11-20 16:47] LABS: Amylase Pleural Fluid 45 U/L; LDH Pleural Fluid 153 U/L; Total Protein Pleural Fluid 2.4 g/dl
[2021-11-20 17:01] LABS: Magnesium 1.5 mg/dl (1.7-2.4); Phosphorus 2.8 mg/dl (2.5-4.9); Total Protein 6.4 gm/dl (6.0-8.3)
--- NOTE | 2021-11-20 17:06 | XRay Report ---
XR chest 1V portable CLINICAL HISTORY: Status post left thoracentesis. COMPARISON STUDY: Chest CT November 17, 2021. Chest radiograph November 19, 2021. FINDINGS: There is no pneumothorax following left thoracentesis. Left pleural effusion has significan tly decreased in size since prior exam. There is a right pleural effusion, likely moderate in size. P ulmonary vascular congestion is noted with possible pulmonary edema. IMPRESSION: 1. No pneumothorax following left thoracentesis. Significant decrease in size of the left pleural eff usion. 2. Right pleural effusion. 3. Pulmonary vascular congestion with suspected mild pulmonary edema. ACT 112: Negative or not required by law. Electronically signed by: Ammon Morales M.D. 11/20/2021 5:05 PM
[2021-11-20 17:32] LABS: Basophils, Fluid 0 %; Eosinophils, Fluid 0 %; Lymphocytes, Fluid 78 %; Mono,Macrophage,Mesothelial 18 %; Neutrophils, Fluid 4 %
[2021-11-20 17:37] LABS: Appearance Pleural Fluid BLOODY; Color Pleural Fluid RED; RBC Pleural Fluid (A) 30000 /uL; Source Pleural Fluid LEFT LUNG; WBC Pleural Fluid (A) 1064 /uL
[2021-11-20] MEDS: ATORVASTATIN 40 MG TAB PO SCH (20:53)
[2021-11-21 06:50] LABS: Albumin Globulin Ratio 0.8 (0.9-2); Albumin Level 2.5 gm/dl (3.4-5.0); BUN Creatinine Ratio 19.1 (10-20); Bilirubin,Total 1.5 mg/dl (0.2-1.0); Calcium 7.6 mg/dl (8.5-10.1); Creatinine Clr Calc Pharmacy 31.8 ml/min; Est GFR (African American) 41.7 ml/min; Potassium 3.6 mmol/L (3.5-5.1); Total Protein 5.5 gm/dl (6.0-8.3)
[2021-11-21] MEDS: INSULIN ASPART PER UNIT SC SCH ×4 (08:13→20:30)
[2021-11-21] MEDS: ASPIRIN 81 MG ECTAB PO SCH (08:14)
[2021-11-21] MEDS: SPIRONOLACTONE 25 MG TAB PO SCH (08:14)
--- NOTE | 2021-11-21 11:57 | Hospitalist Progress Note ---
Date of Service November 21, 2021 Assessment & Plan (1) Volume overload: (2) Pleural effusion: Plan: Cough Patient is 81-year-old male with PMH DMII, HTN, dyslipidemia, CAD s/p angioplasty 1985, RO, CKD III, anemia of chronic disease presented to ER with complaint of progressive SOB, orthopnea, BLE edema x 3 weeks. Denies any known weight gain. In ER pt afebrile, no hypoxia. No leukocytosis. BNP: 254 CT Chest: Large bilateral pleural effusions with associated atelectasis. No definite evidence of pneumonia is seen. Partial visualization of cirrhosis and large ascites. DDX: CHF vs decompensated cirrhosis vs combination Cough x 3 months. Initially thought to be BILL related cough and lisinopril decreased and then discontinued. Off for 2 weeks with no change in cough. No leukocytosis. No infiltrate. COVID-19 PCR: HEAD: No headache, dizziness, or head injury.. Suspect cough secondary to fluid Monitor I's & O's, daily weight, low sodium diet Lasix 20mg Daily and aldactone Echo done EF 65-70% CXR showed Large effusions Pulm on case-bilateral thoracentesis done yesterday (3) RO (nonalcoholic steatohepatitis): (4) Ascites: Plan: History RO Patient unaware of any diagnosis of cirrhosis, ascites, portal hypertension, varices in past. Denies h/o paracentesis in past. CT Chest with partial visualization of abdomen and reports partial visualization of cirrhosis and large ascites. T: bili: 1.3, AST: 41, ALT: 28, Alk Phos: 124. INR: 1.2 US abdomen diagnostic and therapeutic paracentesis Lasix 20mg IV, aldactone No abdominal pain, fever or leukocytosis. SBP less likely at this time (5) HTN (hypertension): Plan: Recent hypotensive. Still on Lasix and Aldactone. Previously on diltiazem. Was on HCTZ that was d/c secondary to hyponatremia. Lisinopril d/c secondary to cough. Normotensive now Monitor BP (6) CAD (coronary atherosclerotic disease): Plan: S/P angioplasty in 1985 (7) CKD (chronic kidney disease), stage III: Plan: baseline Cr: 1.5 Recent DICK on CKD with Cr up in the 2's. Metformin and HCTZ discontinued (8) Diabetes mellitus, type II: Plan: A1c: 6.7 on 08/2021 Previous on metformin which has been discontinued secondary to CKD Was started on alogliptin which was recently discontinued secondary to suspected CHF Novolog sliding scale per protocol (9) Dyslipidemia: Plan: Continue atorvastatin (10) Anemia: Plan: History anemia of chronic disease Outpatient PCP note reports normal B12, folate and iron store levels. Reported baseline>11 Hgb: 11.2 DVT Prophylaxis -Heparin SQ PT/OT eval and placement planning Full Code Follows with Dr Arron Denny for routine care ROS-No Headache, No Visual Changes, No Nausea, No Vomiting, No Fever, No Chills, No Neck Pain or Stiffness, No Chest Pain, No Palpitations, No SOB, No GRIGSBY, No Cough, No Sputum, No Wheezing, No Abdominal Pain, No Diarrhea, No Hematemesis, No Hemoptysis, No Unexpected Weight Loss, No Flank pain, No Melena, No Hematochezia, No Frequency, No Urgency, No Burning, No Hematuria, No Rashes, No Diaphoresis. Appetite is Normal Physical Exam Gen-AAO x 3, NAD, Afebrile Head-NCAT, EOMI, PERRLA, Anicteric Sclera, No Posterior Pharyngeal Erythema Neck-Supple, No JVD, No Thyromegaly, No Masses, No LAD, No Bruits Lungs-Clear to Auscultation Bilaterally, No Rales, No Rhonchi, No Wheezing, No Crepitus Chest-No S4, +S1, +S2, No S3, No Murmurs, No Rubs, No Gallops, No Ectopy Abdomen-Soft, Bowel Sounds Present, Non Tender, Non Distended, No Hepatomegaly, No Splenomegaly, No Palpable Masses, No Rebound, No Rigidity, No Guarding Musculoskeletal-Full Range of Motion Bilaterally, No CVAT Extremities-No Cyanosis, No Clubbing, No Edema Nuero-Cranial Nerves II-XII grossly intact, Motor WNL, DTRs WNL, Strength WNL, Non Focal Psych-Normal Mood Admission and Anticipated Discharge Date Admission Date: November 17, 2021 Subjective Bilateral thoracenteses yesterday, breathing much better, family called me and expressed concern about him going home and being alone Results & Data Results & Data ([facility]) Vital Signs (Past 12 Hours) Vital Signs Temp Pulse Pulse Resp BP Pulse Ox Pulse Ox 11/21/21 11:18 36.8 C 94 H 20 114/76 95 11/21/21 07:42 36.7 C 97 H 20 107/69 94 11/21/21 07:26 98 H 11/21/21 02:59 36.8 C 75 17 112/73 92 11/21/21 02:00 97 11/21/21 00:51 94 H Laboratory Results Reviewed (1) Anemia Anemia type: unspecified type Qualified Code(s): D64.9 - Anemia, unspecified
--- NOTE | 2021-11-21 12:39 | Pulmonology Progress Note ---
Date of Service November 21, 2021 Assessment & Plan (1) Pleural effusion associated with hepatic disorder: (2) Volume overload: (3) Ascites: Plan: Left sided thoracentesis performed 11/20/2021 yielding 1.7 liters of pleural fluid. Pleural fluid studies suggest a lymphocytic exudate. Will await cytology. Cultures thus far negative. Patient clinically improved status post thoracentesis. Prophylactic heparin restarted. Patient received albumin after the procedure yesterday due to mild hypotension. He is normotensive today. Will continue to follow. Thanks for the consult. Admission and Anticipated Discharge Date Admission Date: November 17, 2021 Subjective Patient seen examined this morning. He is sitting up in bed and doing well. Denies any shortness of breath he feels better since the thoracentesis. Currently 95% on room air. Review of Systems Review of Systems: All systems reviewed & are unremarkable except as noted in HPI & below Physical Exam Physical Exam: Constitutional: Patient appears to be of their stated age. Patient is in no apparent distress. Patient is well-developed. Eyes: Pupils are equal round and reactive to light. Conjunctivae are normal. Anicteric sclera. Ears nose, mouth and throat: No obvious deformities. Neck: Trachea is midline. Visual inspection is normal. Respiratory: Clear to auscultation on the left. Mild crackles on the right. Cardiovascular: Regular rate and rhythm. No murmurs. No edema. Gastrointestinal: Normal bowel sounds, soft, nontender and nondistended. No hepatosplenomegaly noted. Musculoskeletal: No cyanosis. Patient is able to move all extremities. Skin: No rashes, warm dry and intact. Neurologic: No obvious focal neurological deficits seen. Psychiatric: Alert and oriented x3 with a euthymic affect. Results & Data Results & Data ([facility]) Vital Signs (Past 12 Hours) Vital Signs Temp Pulse Pulse Resp BP Pulse Ox Pulse Ox 11/21/21 11:18 36.8 C 94 H 20 114/76 95 11/21/21 07:42 36.7 C 97 H 20 107/69 94 11/21/21 07:26 98 H 11/21/21 02:59 36.8 C 75 17 112/73 92 11/21/21 02:00 97 11/21/21 00:51 94 H vital signs, labs and imaging personally reviewed PG Care Time/CCT Total # of Minutes Spent Total Time Spent with Patient: Total time spent is greater than 50% in coordination of care (as documented) at patient's floor/unit and/or counseling patient: Coding Level of Care Code 40752 Subseq Hosp Care Lvl 2 Diagnoses Pleural effusion associated with hepatic disorder K76.9; J91.8 Volume overload E87.70 Ascites R18.8
[2021-11-21] MEDS: HEPARIN SOD 5,000 UNIT/0.5 ML VIAL SQ SCH (20:29)
[2021-11-21] MEDS: ATORVASTATIN 40 MG TAB PO SCH (20:31)
[2021-11-22 06:36] LABS: Albumin Globulin Ratio 0.7 (0.9-2); Albumin Level 2.3 gm/dl (3.4-5.0); BUN Creatinine Ratio 23.2 (10-20); Bilirubin,Total 1.1 mg/dl (0.2-1.0); Calcium 7.6 mg/dl (8.5-10.1); Creatinine Clr Calc Pharmacy 36.5 ml/min; Est GFR (African American) 49.1 ml/min; Est GFR (Non-African American) 42.4 ml/min; Globulin 3.3 gm/dl (2.5-4.0); Potassium 3.5 mmol/L (3.5-5.1); Total Protein 5.6 gm/dl (6.0-8.3)
[2021-11-22 07:12] LABS: Hematocrit (blood only) 29.2 % (42-52); Hemoglobin 9.9 g/dL (14.0-18.0); Mean Corpuscular Hemoglobin 30.6 pg (25-34); Mean Corpuscular Hgb Conc 33.9 g/dL (32-36); Mean Corpuscular Volume 90.1 fL (80-100); Mean Platelet Volume 10.6 fL (7.4-10.4); Platelet Count 149 K/uL (130-400); RDW Coefficient of Variation 14.6 % (11.5-14.5); RDW Standard Deviation 48.1 fL (36.4-46.3); Red Blood Count 3.24 M/uL (4.7-6.1); White Blood Count 5.53 K/uL (4.8-10.8)
[2021-11-22] MEDS: INSULIN ASPART PER UNIT SC SCH ×4 (08:38→20:47)
[2021-11-22] MEDS: SPIRONOLACTONE 25 MG TAB PO SCH (08:39)
[2021-11-22] MEDS: ASPIRIN 81 MG ECTAB PO SCH (08:39)
[2021-11-22] MEDS: HEPARIN SOD 5,000 UNIT/0.5 ML VIAL SQ SCH ×2 (08:39→20:47)
--- NOTE | 2021-11-22 10:08 | Hospitalist Progress Note ---
Date of Service November 22, 2021 Assessment & Plan (1) Volume overload: (2) Pleural effusion: Plan: Cough Patient is 81-year-old male with PMH DMII, HTN, dyslipidemia, CAD s/p angioplasty 1985, RO, CKD III, anemia of chronic disease presented to ER with complaint of progressive SOB, orthopnea, BLE edema x 3 weeks. Denies any known weight gain. In ER pt afebrile, no hypoxia. No leukocytosis. BNP: 254 CT Chest: Large bilateral pleural effusions with associated atelectasis. No definite evidence of pneumonia is seen. Partial visualization of cirrhosis and large ascites. DDX: CHF vs decompensated cirrhosis vs combination Cough x 3 months. Initially thought to be BILL related cough and lisinopril decreased and then discontinued. Off for 2 weeks with no change in cough. No leukocytosis. No infiltrate. COVID-19 PCR: HEAD: No headache, dizziness, or head injury.. Suspect cough secondary to fluid Monitor I's & O's, daily weight, low sodium diet Lasix 20mg Daily and aldactone Echo done EF 65-70% CXR showed Large effusions Pulm on case-bilateral thoracentesis done Paracentesis and pleural fluid with transudative, pleural fluid seemed chylous (3) RO (nonalcoholic steatohepatitis): (4) Ascites: Plan: History RO Patient unaware of any diagnosis of cirrhosis, ascites, portal hypertension, varices in past. Denies h/o paracentesis in past. CT Chest with partial visualization of abdomen and reports partial visualization of cirrhosis and large ascites. T: bili: 1.3, AST: 41, ALT: 28, Alk Phos: 124. INR: 1.2 US abdomen diagnostic and therapeutic paracentesis Lasix 20mg IV, aldactone No abdominal pain, fever or leukocytosis. SBP less likely at this time (5) HTN (hypertension): Plan: Recent hypotensive. Still on Lasix and Aldactone. Previously on diltiazem. Was on HCTZ that was d/c secondary to hyponatremia. Lisinopril d/c secondary to cough. Normotensive now Monitor BP (6) CAD (coronary atherosclerotic disease): Plan: S/P angioplasty in 1985 (7) CKD (chronic kidney disease), stage III: Plan: baseline Cr: 1.5 Recent DICK on CKD with Cr up in the 2's. Metformin and HCTZ discontinued (8) Diabetes mellitus, type II: Plan: A1c: 6.7 on 08/2021 Previous on metformin which has been discontinued secondary to CKD Was started on alogliptin which was recently discontinued secondary to suspected CHF Novolog sliding scale per protocol (9) Dyslipidemia: Plan: Continue atorvastatin (10) Anemia: Plan: History anemia of chronic disease Outpatient PCP note reports normal B12, folate and iron store levels. Reported baseline>11 Hgb: 11.2 DVT Prophylaxis -Heparin SQ PT/OT eval and placement planning, will try to place in rehab prior to sending home. Full Code Follows with Dr Arron Denny for routine care ROS-No Headache, No Visual Changes, No Nausea, No Vomiting, No Fever, No Chills, No Neck Pain or Stiffness, No Chest Pain, No Palpitations, No SOB, No GRIGSBY, No Cough, No Sputum, No Wheezing, No Abdominal Pain, No Diarrhea, No Hematemesis, No Hemoptysis, No Unexpected Weight Loss, No Flank pain, No Melena, No Hematochezia, No Frequency, No Urgency, No Burning, No Hematuria, No Rashes, No Diaphoresis. Appetite is Normal Physical Exam Gen-AAO x 3, NAD, Afebrile Head-NCAT, EOMI, PERRLA, Anicteric Sclera, No Posterior Pharyngeal Erythema Neck-Supple, No JVD, No Thyromegaly, No Masses, No LAD, No Bruits Lungs-Clear to Auscultation Bilaterally, No Rales, No Rhonchi, No Wheezing, No Crepitus Chest-No S4, +S1, +S2, No S3, No Murmurs, No Rubs, No Gallops, No Ectopy Abdomen-Soft, Bowel Sounds Present, Non Tender, Non Distended, No Hepatomegaly, No Splenomegaly, No Palpable Masses, No Rebound, No Rigidity, No Guarding Musculoskeletal-Full Range of Motion Bilaterally, No CVAT Extremities-No Cyanosis, No Clubbing, No Edema Nuero-Cranial Nerves II-XII grossly intact, Motor WNL, DTRs WNL, Strength WNL, Non Focal Psych-Normal Mood Admission and Anticipated Discharge Date Admission Date: November 17, 2021 Subjective Patient seen and examined this morning. He was just seen to be sitting up in bed and doing well. Denies any shortness of breath he feels better since the thoracentesis. Currently 94 on room air. Results & Data Results & Data ([facility]) Vital Signs (Past 12 Hours) Vital Signs Temp Pulse Pulse Resp BP BP Pulse Ox 11/22/21 09:01 95 H 11/22/21 08:57 11/22/21 07:43 36.5 C 98 H 18 97/64 L 94 11/22/21 03:35 36.7 C 18 106/67 93 11/22/21 01:59 11/21/21 23:24 102 H 11/21/21 23:13 36.4 C L 99 H 15 110/71 93 Pulse Ox 11/22/21 09:01 11/22/21 08:57 94 11/22/21 07:43 11/22/21 03:35 11/22/21 01:59 95 11/21/21 23:24 11/21/21 23:13 Laboratory Results Reviewed (1) Anemia Anemia type: unspecified type Qualified Code(s): D64.9 - Anemia, unspecified
[2021-11-22] MEDS: ATORVASTATIN 40 MG TAB PO SCH (20:46)
[2021-11-23 06:16] LABS: Hematocrit (blood only) 28.7 % (42-52); Hemoglobin 9.5 g/dL (14.0-18.0); Mean Corpuscular Hemoglobin 29.8 pg (25-34); Mean Corpuscular Hgb Conc 33.1 g/dL (32-36); Mean Platelet Volume 10.4 fL (7.4-10.4); Platelet Count 148 K/uL (130-400); RDW Coefficient of Variation 14.8 % (11.5-14.5); RDW Standard Deviation 48.3 fL (36.4-46.3); Red Blood Count 3.19 M/uL (4.7-6.1); White Blood Count 5.98 K/uL (4.8-10.8)
[2021-11-23 06:39] LABS: BUN Creatinine Ratio 23.9 (10-20); Calcium 7.5 mg/dl (8.5-10.1); Creatinine Clr Calc Pharmacy 35.5 ml/min; Est GFR (African American) 47.6 ml/min; Est GFR (Non-African American) 41.1 ml/min; Potassium 3.7 mmol/L (3.5-5.1)
[2021-11-23] MEDS: INSULIN ASPART PER UNIT SC SCH ×4 (07:57→20:14)
[2021-11-23] MEDS: ASPIRIN 81 MG ECTAB PO SCH (08:16)
[2021-11-23] MEDS: SPIRONOLACTONE 25 MG TAB PO SCH (08:16)
[2021-11-23] MEDS: HEPARIN SOD 5,000 UNIT/0.5 ML VIAL SQ SCH ×2 (08:16→20:13)
--- NOTE | 2021-11-23 09:47 | Hospitalist Progress Note ---
Date of Service November 23, 2021 Assessment & Plan (1) Volume overload: (2) Pleural effusion: Plan: Cough Patient is 81-year-old male with PMH DMII, HTN, dyslipidemia, CAD s/p angioplasty 1985, RO, CKD III, anemia of chronic disease presented to ER with complaint of progressive SOB, orthopnea, BLE edema x 3 weeks. Denies any known weight gain. In ER pt afebrile, no hypoxia. No leukocytosis. BNP: 254 CT Chest: Large bilateral pleural effusions with associated atelectasis. No definite evidence of pneumonia is seen. Partial visualization of cirrhosis and large ascites. DDX: CHF vs decompensated cirrhosis vs combination Cough x 3 months. Initially thought to be BILL related cough and lisinopril decreased and then discontinued. Off for 2 weeks with no change in cough. No leukocytosis. No infiltrate. COVID-19 PCR: HEAD: No headache, dizziness, or head injury.. Suspect cough secondary to fluid Monitor I's & O's, daily weight, low sodium diet Lasix 20mg Daily and aldactone Echo done EF 65-70% CXR showed Large effusions Pulm on case-bilateral thoracentesis done Paracentesis and pleural fluid with transudative, pleural fluid exudative, await pathology (3) RO (nonalcoholic steatohepatitis): (4) Ascites: Plan: History RO Patient unaware of any diagnosis of cirrhosis, ascites, portal hypertension, varices in past. Denies h/o paracentesis in past. CT Chest with partial visualization of abdomen and reports partial visualization of cirrhosis and large ascites. T: bili: 1.3, AST: 41, ALT: 28, Alk Phos: 124. INR: 1.2 US abdomen diagnostic and therapeutic paracentesis Lasix 20mg IV, aldactone No abdominal pain, fever or leukocytosis. SBP less likely at this time (5) HTN (hypertension): Plan: Recent hypotensive. Still on Lasix and Aldactone. Previously on diltiazem. Was on HCTZ that was d/c secondary to hyponatremia. Lisinopril d/c secondary to cough. Normotensive now Monitor BP (6) CAD (coronary atherosclerotic disease): Plan: S/P angioplasty in 1985 (7) CKD (chronic kidney disease), stage III: Plan: baseline Cr: 1.5 Recent DICK on CKD with Cr up in the 2's. Metformin and HCTZ discontinued (8) Diabetes mellitus, type II: Plan: A1c: 6.7 on 08/2021 Previous on metformin which has been discontinued secondary to CKD Was started on alogliptin which was recently discontinued secondary to suspected CHF Novolog sliding scale per protocol (9) Dyslipidemia: Plan: Continue atorvastatin (10) Anemia: Plan: History anemia of chronic disease Outpatient PCP note reports normal B12, folate and iron store levels. Reported baseline>11 Hgb: 11.2 DVT Prophylaxis -Heparin SQ PT/OT, will try to place in rehab prior to sending home. Full Code Follows with Dr Arron Denny for routine care ROS-No Headache, No Visual Changes, No Nausea, No Vomiting, No Fever, No Chills, No Neck Pain or Stiffness, No Chest Pain, No Palpitations, No SOB, No GRIGSBY, No Cough, No Sputum, No Wheezing, No Abdominal Pain, No Diarrhea, No Hematemesis, No Hemoptysis, No Unexpected Weight Loss, No Flank pain, No Melena, No Hematochezia, No Frequency, No Urgency, No Burning, No Hematuria, No Rashes, No Diaphoresis. Appetite is Normal Physical Exam Gen-AAO x 3, NAD, Afebrile Head-NCAT, EOMI, PERRLA, Anicteric Sclera, No Posterior Pharyngeal Erythema Neck-Supple, No JVD, No Thyromegaly, No Masses, No LAD, No Bruits Lungs-Clear to Auscultation Bilaterally, No Rales, No Rhonchi, No Wheezing, No Crepitus Chest-No S4, +S1, +S2, No S3, No Murmurs, No Rubs, No Gallops, No Ectopy Abdomen-Soft, Bowel Sounds Present, Non Tender, Non Distended, No Hepatomegaly, No Splenomegaly, No Palpable Masses, No Rebound, No Rigidity, No Guarding Musculoskeletal-Full Range of Motion Bilaterally, No CVAT Extremities-No Cyanosis, No Clubbing, No Edema Nuero-Cranial Nerves II-XII grossly intact, Motor WNL, DTRs WNL, Strength WNL, Non Focal Psych-Normal Mood Admission and Anticipated Discharge Date Admission Date: November 17, 2021 Subjective Patient seen and examined this morning. He was just seen to be sitting up in bed and doing well. Denies any shortness of breath, he feels better since the thoracentesis. Currently 93 on room air. Results & Data Results & Data ([facility]) Vital Signs (Past 12 Hours) Vital Signs Temp Pulse Pulse Resp BP BP Pulse Ox 11/23/21 08:00 92 H 11/23/21 07:00 36.7 C 89 18 111/71 93 11/23/21 03:22 36.7 C 97 H 15 113/72 93 11/23/21 01:03 102 H 11/23/21 00:00 36.8 C 99 H 18 100/63 92 Laboratory Results Reviewed (1) Anemia Anemia type: unspecified type Qualified Code(s): D64.9 - Anemia, unspecified
[2021-11-23] MEDS: ATORVASTATIN 40 MG TAB PO SCH (20:13)
[2021-11-24] MEDS: SPIRONOLACTONE 25 MG TAB PO SCH (08:41)
[2021-11-24] MEDS: ASPIRIN 81 MG ECTAB PO SCH (08:41)
[2021-11-24] MEDS: HEPARIN SOD 5,000 UNIT/0.5 ML VIAL SQ SCH (08:41)
--- NOTE | 2021-11-24 09:46 | Hospitalist Progress Note ---
Date of Service November 24, 2021 Assessment & Plan (1) Volume overload: (2) Pleural effusion: Plan: Cough Patient is 81-year-old male with PMH DMII, HTN, dyslipidemia, CAD s/p angioplasty 1985, RO, CKD III, anemia of chronic disease presented to ER with complaint of progressive SOB, orthopnea, BLE edema x 3 weeks. Denies any known weight gain. In ER pt afebrile, no hypoxia. No leukocytosis. BNP: 254 CT Chest: Large bilateral pleural effusions with associated atelectasis. No definite evidence of pneumonia is seen. Partial visualization of cirrhosis and large ascites. DDX: CHF vs decompensated cirrhosis vs combination Cough x 3 months. Initially thought to be BILL related cough and lisinopril decreased and then discontinued. Off for 2 weeks with no change in cough. No leukocytosis. No infiltrate. COVID-19 PCR: HEAD: No headache, dizziness, or head injury.. Suspect cough secondary to fluid Monitor I's & O's, daily weight, low sodium diet Lasix 20mg Daily and aldactone Echo done EF 65-70% CXR showed Large effusions Pulm on case-bilateral thoracentesis done Paracentesis transudative, pleural fluid exudative, await final pathology (3) RO (nonalcoholic steatohepatitis): (4) Ascites: Plan: History RO Patient unaware of any diagnosis of cirrhosis, ascites, portal hypertension, varices in past. Denies h/o paracentesis in past. CT Chest with partial visualization of abdomen and reports partial visualization of cirrhosis and large ascites. T: bili: 1.3, AST: 41, ALT: 28, Alk Phos: 124. INR: 1.2 US abdomen diagnostic and therapeutic paracentesis Lasix 20mg IV, aldactone No abdominal pain, fever or leukocytosis. SBP less likely at this time (5) HTN (hypertension): Plan: Recent hypotensive. Still on Lasix and Aldactone. Previously on diltiazem. Was on HCTZ that was d/c secondary to hyponatremia. Lisinopril d/c secondary to cough. Normotensive now Monitor BP (6) CAD (coronary atherosclerotic disease): Plan: S/P angioplasty in 1985 (7) CKD (chronic kidney disease), stage III: Plan: baseline Cr: 1.5 Recent DICK on CKD with Cr up in the 2's. Metformin and HCTZ discontinued (8) Diabetes mellitus, type II: Plan: A1c: 6.7 on 08/2021 Previous on metformin which has been discontinued secondary to CKD Was started on alogliptin which was recently discontinued secondary to suspected CHF Novolog sliding scale per protocol (9) Dyslipidemia: Plan: Continue atorvastatin (10) Anemia: Plan: History anemia of chronic disease Outpatient PCP note reports normal B12, folate and iron store levels. Reported baseline>11 Hgb: 11.2 DVT Prophylaxis -Heparin SQ PT/OT, will try to place in rehab prior to sending home. Full Code Follows with Dr Arron Denny for routine care ROS-No Headache, No Visual Changes, No Nausea, No Vomiting, No Fever, No Chills, No Neck Pain or Stiffness, No Chest Pain, No Palpitations, No SOB, No GRIGSBY, No Cough, No Sputum, No Wheezing, No Abdominal Pain, No Diarrhea, No Hematemesis, No Hemoptysis, No Unexpected Weight Loss, No Flank pain, No Melena, No Hematochezia, No Frequency, No Urgency, No Burning, No Hematuria, No Rashes, No Diaphoresis. Appetite is Normal Physical Exam Gen-AAO x 3, NAD, Afebrile Head-NCAT, EOMI, PERRLA, Anicteric Sclera, No Posterior Pharyngeal Erythema Neck-Supple, No JVD, No Thyromegaly, No Masses, No LAD, No Bruits Lungs-Clear to Auscultation Bilaterally, No Rales, No Rhonchi, No Wheezing, No Crepitus Chest-No S4, +S1, +S2, No S3, No Murmurs, No Rubs, No Gallops, No Ectopy Abdomen-Soft, Bowel Sounds Present, Non Tender, Non Distended, No Hepatomegaly, No Splenomegaly, No Palpable Masses, No Rebound, No Rigidity, No Guarding Musculoskeletal-Full Range of Motion Bilaterally, No CVAT Extremities-No Cyanosis, No Clubbing, No Edema Nuero-Cranial Nerves II-XII grossly intact, Motor WNL, DTRs WNL, Strength WNL, Non Focal Psych-Normal Mood Admission and Anticipated Discharge Date Admission Date: November 17, 2021 Subjective Patient seen and examined this morning. He was just seen to be sitting up in bed and doing well. Denies any shortness of breath, he feels better each day. Still 93 on room air. Results & Data Results & Data ([facility]) Vital Signs (Past 12 Hours) Vital Signs Temp Pulse Pulse Resp BP Pulse Ox 11/24/21 08:14 36.6 C 92 H 16 116/74 93 11/24/21 04:03 36.8 C 94 H 17 110/72 94 11/23/21 23:58 36.8 C 93 H 20 113/73 95 11/23/21 23:14 98 H (1) Anemia Anemia type: unspecified type Qualified Code(s): D64.9 - Anemia, unspecified
[2021-11-24] MEDS: INSULIN ASPART PER UNIT SC SCH ×4 (10:50→20:35)
[2021-11-24] MEDS: FUROSEMIDE 40 MG/4 ML VIAL IV ONE ×2 (12:51→13:02)
[2021-11-24] MEDS ORDERED: FUROSEMIDE 40 MG TAB PO ONE (12:59)
--- NOTE | 2021-11-24 14:59 | XRay Report ---
XR chest 2V PA/lateral CLINICAL HISTORY: sob TECHNIQUE: AP and lateral frontal radiograph of the chest was obtained. Comparison: Comparison is made to chest radiographs 11/20/2021 FINDINGS: No lines and tubes are seen. Cardiomegaly is noted. Left retrocardiac opacity is seen. Small right an d moderate left pleural effusion. IMPRESSION: Small right and moderate left pleural effusion. Left retrocardiac opacity which may represent atelect asis, pneumonia, and/or aspiration. ACT 112: Negative or not required by law. Electronically signed by: Arron Don M.D. 11/24/2021 2:58 PM
[2021-11-24] MEDS ORDERED: dilTIAZem HCl 5 MG/ML 5 ML VIAL IV STA (15:51)
[2021-11-24] MEDS ORDERED: STAT IV Infusion **Titration per Protocol STA (15:51)
[2021-11-24] MEDS ORDERED: Heparin IV Adult Wt-Based Standard *NO* Bolus Protocol IV SCH (15:56)
[2021-11-24] MEDS ORDERED: dilTIAZem HCL 125 MG in DEXTROSE 5% 100 ML IV SCH (16:00)
[2021-11-24] MEDS ORDERED: HEPARIN SODIUM/DEXTROSE 25,000 UNITS/500 ML BAG IV SCH (16:15)
--- NOTE | 2021-11-24 17:12 | Communication Note ---
Date of Service: November 24, 2021 81-year-old male referred for diagnosis of atrial fibrillation. Chart and EKGs reviewed telemetry reviewed. EKG with a large degree of artifact. No atrial fibrillation present on my review and on review of telemetry. Recommendations: Patient may benefit from low-dose beta-arnulfo (nadolol) given underlying hepatic disease and elevated heart rate
[2021-11-24 17:17] LABS: Partial Thromboplastin Ratio 1.3; Partial Thromboplastin Time 34.7 Seconds (21.0-31.0)
--- NOTE | 2021-11-24 17:46 | Pulmonology Progress Note ---
Date of Service November 24, 2021 Assessment & Plan (1) Pleural effusion associated with hepatic disorder: (2) Volume overload: (3) Ascites: Plan: Attending: Dr. Moran Impression: Patient with bilateral pleural effusions. Left sided thoracentesis performed 11/20/2021 yielding 1.7 liters of pleural fluid. Pleural fluid studies suggest a lymphocytic exudate. Still awaiting cytology. Patient clinically improved status post thoracentesis. Patient received albumin after the thoracentesis due to mild hypotension. He is normotensive today. Recommendations: 1. Bilateral pleural effusions: * Left-sided thoracentesis 11/20/2021 * No evidence of empyema or parapneumonic effusion * Cytology is still pending * Patient appears to have recurrence of the fluid on the left side * Patient is oxygenating 95% on room air * We will check a repeat chest x-ray in the morning * Based on cytology, will determine if patient is eligible for repeat thoracentesis or Pleurx catheter or observation only Thank you for including us in the care of this patient. We will continue to follow along with you. Admission and Anticipated Discharge Date Admission Date: November 17, 2021 Subjective Attending: Dr. Moran This is a 81-year-old male that presented with pleural effusion bilaterally with associated hepatic disorder. Left-sided thoracentesis performed by Dr. Moran 11/20/2021. Patient continues with nonproductive cough. He denies any significant shortness of breath. He has no pain at procedure site. He denies any fever, chills, sweats, rigors. He has developed atrial fibrillation and is being placed on a heparin drip. No other new developments. Review of Systems Review of Systems: All systems reviewed & are unremarkable except as noted in Subjective Physical Exam Physical Exam: GENERAL : No acute distress EYES: No icterus, gaze conjugate NOSE: No evidence of epistaxis MOUTH: No lesions or candidiasis NECK: Supple LUNGS: CTA B/L, no wheezes, rales or rhonchi HEART: Irregular, irregular. Ventricular rate of 91 bpm on EKG. Atrial fibrillation per EKG BACK: Band-Aid still in place on the left side. No evidence of bleedthrough. No evidence of skin irritation around the Band-Aids ABDOMEN: Soft, NT, ND, BS Present EXTREMITIES: No LE edema, pedal pulses intact NEURO: A&OX3 Results & Data Results & Data ([facility]) Vital Signs (Past 12 Hours) Vital Signs Temp Pulse Pulse Pulse Pulse Pulse Resp 11/24/21 15:57 36.5 C 106 H 93 H 20 11/24/21 12:58 115 H 95 H 96 H 11/24/21 11:44 36.6 C 97 H 18 11/24/21 08:14 36.6 C 92 H 16 11/24/21 08:00 90 Resp Resp Resp BP Pulse Ox Pulse Ox Pulse Ox 11/24/21 15:57 119/71 95 11/24/21 12:58 20 16 16 94 95 11/24/21 11:44 110/74 94 11/24/21 08:14 116/74 93 11/24/21 08:00 Pulse Ox 11/24/21 15:57 11/24/21 12:58 96 11/24/21 11:44 11/24/21 08:14 11/24/21 08:00 Laboratory Results 11/23/21 05:40 11/23/21 05:40 INR 1.3 (0.9-1.1) H 11/19/21 06:36 Diagnostic Findings Chest X-Ray 11/24/21 12:32 XR chest 2V PA/lateral CLINICAL HISTORY: sob TECHNIQUE: AP and lateral frontal radiograph of the chest was obtained. Comparison: Comparison is made to chest radiographs 11/20/2021 FINDINGS: No lines and tubes are seen. Cardiomegaly is noted. Left retrocardiac opacity is seen. Small right and moderate left pleural effusion. IMPRESSION: Small right and moderate left pleural effusion. Left retrocardiac opacity which may represent atelectasis, pneumonia, and/or aspiration. ACT 112: Negative or not required by law. Electronically signed by: Arron Don M.D. 11/24/2021 2:58 PM PG Care Time/CCT Total # of Minutes Spent Total Time Spent with Patient: Total time spent is greater than 50% in coordination of care (as documented) at patient's floor/unit and/or counseling patient: 20 minutes Coding Level of Care Code 22923 Subseq Hosp Care Lvl 2 Diagnoses Pleural effusion associated with hepatic disorder K76.9; J91.8 Volume overload E87.70 Ascites R18.8 Time Spent (min) 20
--- NOTE | 2021-11-24 18:01 | Electrocardiogram Report ---
Test Reason : Blood Pressure : / mmHG Vent. Rate : 091 BPM Atrial Rate : 070 BPM P-R Int : 000 ms QRS Dur : 072 ms QT Int : 352 ms P-R-T Axes : 000 029 047 degrees QTc Int : 432 ms Poor data quality, interpretation may be adversely affected possibly atrial fibrillation although sinsu rhythm with PACs should be considered Low voltage QRS Cannot rule out Inferior infarct , age undetermined Abnormal ECG Confirmed by Malcolm Black ([id number] on 11/24/2021 6:01:23 PM Referred By: REFERRED SELF Confirmed By:Carter Black
[2021-11-24] MEDS: ATORVASTATIN 40 MG TAB PO SCH (20:37)
[2021-11-24 23:41] LABS: Partial Thromboplastin Ratio > 5.3
[2021-11-25] LABS: Partial Thromboplastin Time > 139.0 Seconds (21.0-31.0)
[2021-11-25 06:00] LABS: Hematocrit (blood only) 29.5 % (42-52); Hemoglobin 9.9 g/dL (14.0-18.0); Mean Corpuscular Hgb Conc 33.6 g/dL (32-36); Mean Corpuscular Volume 89.4 fL (80-100); Mean Platelet Volume 10.3 fL (7.4-10.4); Platelet Count 166 K/uL (130-400); RDW Coefficient of Variation 15.1 % (11.5-14.5); RDW Standard Deviation 48.5 fL (36.4-46.3); White Blood Count 5.99 K/uL (4.8-10.8)
[2021-11-25 06:17] LABS: BUN Creatinine Ratio 24.7 (10-20); Calcium 7.9 mg/dl (8.5-10.1); Creatinine Clr Calc Pharmacy 37.7 ml/min; Est GFR (African American) 51.2 ml/min; Est GFR (Non-African American) 44.2 ml/min; Potassium 3.6 mmol/L (3.5-5.1)
[2021-11-25] MEDS: ASPIRIN 81 MG ECTAB PO SCH (08:18)
[2021-11-25] MEDS: FUROSEMIDE 20 MG TAB PO SCH (08:19)
[2021-11-25] MEDS: nadoloL 40 MG TAB PO SCH (08:19)
[2021-11-25] MEDS: SPIRONOLACTONE 25 MG TAB PO SCH (08:20)
[2021-11-25] MEDS: INSULIN ASPART PER UNIT SC SCH ×4 (09:59→20:49)
--- NOTE | 2021-11-25 18:18 | Pulmonology Progress Note ---
Date of Service November 25, 2021 Assessment & Plan (1) Pleural effusion associated with hepatic disorder: (2) Volume overload: (3) Ascites: Plan: Attending: Dr. Moran Impression: Patient with bilateral pleural effusions. Left sided thoracentesis performed 11/20/2021 yielding 1.7 liters of pleural fluid. Pleural fluid studies suggest a lymphocytic exudate. Still awaiting cytology. Patient clinically improved status post thoracentesis. Patient received albumin after the thoracentesis due to mild hypotension. Patient seems to have reaccumulation of pleural effusion on chest x-ray yesterday. Recommendations: 1. Bilateral pleural effusions: * Left-sided thoracentesis 11/20/2021 * No evidence of empyema or parapneumonic effusion * Cytology is negative for malignancy * Patient appears to have recurrence of the fluid on the left side * Patient is oxygenating well on room air. Do not recommend repeat thoracentesis until GI issues are addressed or patient develops hypoxia * Cytology is negative. At this time would address ascites. * Would consider reengaging gastroenterology for repeat paracentesis and evaluation At this time the pulmonary service will sign off. Please feel free to reconsult as needed. Admission and Anticipated Discharge Date Admission Date: November 17, 2021 Supervising Physician Co-Signing Physician Notes Patient seen and examined separately from the [facility]. Agree with assessment and plan aside for any additions/exceptions noted. Patient with a mildly exudative effusion of unclear etiology. Cytology negative. May be related to a spontaneous bacterial pleuritis given the ascites seen. Triglyceride level pending to evaluate for chylothorax although this would appear less likely. Can consider repeat thoracentesis in the future if he becomes more symptomatic. Physical exam Constitutional: Patient appears to be of their stated age. Patient is in no apparent distress. Patient is well-developed. Eyes: Pupils are equal round and reactive to light. Conjunctivae are normal. Anicteric sclera. Ears nose, mouth and throat: No obvious deformities. Neck: Trachea is midline. Visual inspection is normal. Respiratory: Diminished at the bases bilaterally. Clear to auscultation otherwise. Cardiovascular: Regular rate and rhythm. No murmurs. No edema. Gastrointestinal: Normal bowel sounds, soft, nontender and nondistended. No hepatosplenomegaly noted. Musculoskeletal: No cyanosis. Patient is able to move all extremities. Skin: No rashes, warm dry and intact. Neurologic: No obvious focal neurological deficits seen. Psychiatric: Alert and oriented x3 with a euthymic affect. Subjective Attending: Dr. Moran Patient seen and examined in room 229. He is still oxygenating well on room air. He has some distention of his abdomen which appears to be ascites due to fluid wave on examination. He denies fever chills. He has no sputum production. He does have cough when he starts to lie flat or on his side. He has no specific pulmonary complaints. He feels as though his abdomen is more distended and that he would benefit from repeat paracentesis. I explained to him that this is a gastroenterology issue. Review of Systems Review of Systems: All systems reviewed & are unremarkable except as noted in Subjective Physical Exam Physical Exam: GENERAL : No acute distress EYES: No icterus, gaze conjugate NOSE: No evidence of epistaxis MOUTH: No lesions or candidiasis NECK: Supple LUNGS: Decreased breath sounds on the left. Some crackles bilaterally. HEART: Regular, rate controlled ABDOMEN: Soft, NT, BS Present. Abdomen is somewhat distended with positive fluid wave. EXTREMITIES: No LE edema, pedal pulses intact NEURO: A&OX3 Results & Data Results & Data ([facility]) Vital Signs (Past 12 Hours) Vital Signs Temp Pulse Pulse Resp BP Pulse Ox 11/25/21 15:38 36.8 C 62 17 108/69 96 11/25/21 15:04 69 11/25/21 10:45 36.6 C 60 17 97/62 L 98 11/25/21 08:00 77 11/25/21 07:02 36.6 C 88 16 112/68 95 Laboratory Results 11/25/21 05:21 11/25/21 05:21 PG Care Time/CCT Total # of Minutes Spent Total Time Spent with Patient: Total time spent is greater than 50% in coordination of care (as documented) at patient's floor/unit and/or counseling patient:25 minutes Coding Level of Care Code 02615 Subseq Hosp Care Lvl 2 Diagnoses Pleural effusion associated with hepatic disorder K76.9; J91.8 Volume overload E87.70 Ascites R18.8 Time Spent (min) 25
--- NOTE | 2021-11-25 18:29 | Hospitalist Progress Note ---
Date of Service November 25, 2021 Assessment & Plan (1) Pleural effusion associated with hepatic disorder: (2) Ascites: (3) RO (nonalcoholic steatohepatitis): Plan: 81-year-old male with PMH of DMII, HTN, dyslipidemia, CAD s/p angioplasty 1985, RO, CKD III, anemia of chronic disease presented to ER 11/17 with complaint of progressive SOB, orthopnea, BLE edema x 3 weeks [employer]. Denies any known weight gain. She is being managed for the following: (1) Volume overload: (2) Pleural effusion: In ER pt afebrile, no hypoxia. No leukocytosis. BNP: 254 CT Chest: Large bilateral pleural effusions with associated atelectasis. No de finite evidence of pneumonia is seen. Partial visualization of cirrhosis and large ascites. DDX: CHF vs decompensated cirrhosis vs combination Cough x 3 months. Initially thought to be BILL related cough and lisinopril decreased and then discontinued. Off for 2 weeks with no change in cough. No leukocytosis. No infiltrate. COVID-19 PCR neg Suspect cough secondary to fluid induced. Monitor I's & O's, daily weight, low sodium diet Lasix 20mg Daily and aldactone Echo done EF 65-70% Pulm on case: Lt thoracentesis 11/20 ---> 1.7L fluid out. Paracentesis transudative, pleural fluid exudative, negative for malignancy. Discussed with Pulm, left pleural eff reoccuring. Will need d/w GI for ongoing ascites, will send US abd. Continue diuresis, follow-up chest x-ray. (3) RO (nonalcoholic steatohepatitis): (4) Ascites: History RO Patient unaware of any diagnosis of cirrhosis, ascites, portal hypertension, varices in past. Denies h/o paracentesis in past. CT Chest with partial visualization of abdomen and reports partial visualization of cirrhosis and large ascites. T: bili: 1.3, AST: 41, ALT: 28, Alk Phos: 124. INR: 1.2 US abdomen diagnostic and therapeutic paracentesis --> ascites fluid negative for malignancy. Lasix 20mg IV, aldactone, c/w nadolol No abdominal pain, fever or leukocytosis. SBP less likely at this time Continue with low-sodium diet [less than 2 g], no alcohol, will need outpatient GI follow-up We will get abdominal ultrasound to reassess ascites. (5) HTN (hypertension): Plan: Recent hypotensive. Still on Lasix and Aldactone. Previously on diltiazem. Was on HCTZ that was d/c secondary to hyponatremia. Lisinopril d/c secondary to cough. Normotensive now Monitor BP (6) CAD (coronary atherosclerotic disease): Plan: S/P angioplasty in 1985 (7) CKD (chronic kidney disease), stage III: Plan: baseline Cr: 1.5 Recent DICK on CKD with Cr up in the 2's. Metformin and HCTZ discontinued (8) Diabetes mellitus, type II: Plan: A1c: 6.7 on 08/2021 Previous on metformin which has been discontinued secondary to CKD Was started on alogliptin which was recently discontinued secondary to suspected CHF Novolog sliding scale per protocol (9) Dyslipidemia: Plan: Continue atorvastatin (10) Anemia: Plan: History anemia of chronic disease Outpatient PCP note reports normal B12, folate and iron store levels. Reported baseline>11 Hgb: 11.2 DVT Prophylaxis -Heparin SQ PT/OT, will try to place in rehab prior to sending home. Full Code Follows with Dr Arron Denny for routine care 11/24 --> patient was apparently started on heparin drip for concerns of atrial fibrillation and cardiology consulted, overnight per cardiology recommendation heparin drip discontinued as there was no concern of atrial fibrillation but EKG showing a large degree of artifact. Cardiology recommended adding low-dose beta-arnulfo [nadolol] given underlying hepatic disease and elevated heart rate. Admission and Anticipated Discharge Date Admission Date: November 17, 2021 Subjective Patient was seen and examined at bedside for RO cirrhosis and associated ascites and pleural effusion. Patient was sitting up in chair, eating his lunch, NAD, has occasional shortness of breath while lying flat, no new acute events overnight. Patient reports eating and moving bowels okay. Patient denies any fever/chills/chest pain/palpitations/belly pain/other review of symptoms. Per RN patient is doing okay. Physical Exam Physical Exam: GENERAL: Alert and oriented x3. NAD, on RA. HEENT: No pallor, no icterus. Pupils equal, round and reactive to light. Oral mucosa moist. NECK: No JVD, no neck masses. HEART: S1 and S2 heard. Regular rate and rhythm. No murmur, no gallop. RESPIRATORY SYSTEM: Normal AP diameter. No accessory muscle use. No wheezing, decreased breath sounds especially in the left lower lobe. ABDOMEN: Soft, bowel sounds present, nontender, no distention. CENTRAL NERVOUS SYSTEM: No facial droop. Speech is clear. Obeys simple commands. Moves extremities. EXTREMITIES: TRace ble edema, no erythema seen. Is a scary hard to know that his 1-year-old Results & Data Results & Data ([facility]) Vital Signs (Past 12 Hours) Vital Signs Temp Pulse Pulse Resp BP Pulse Ox 11/25/21 15:38 36.8 C 62 17 108/69 96 11/25/21 15:04 69 11/25/21 10:45 36.6 C 60 17 97/62 L 98 11/25/21 08:00 77 11/25/21 07:02 36.6 C 88 16 112/68 95
[2021-11-25] MEDS: ATORVASTATIN 40 MG TAB PO SCH (20:49)
[2021-11-26 06:20] LABS: Hematocrit (blood only) 33.5 % (42-52); Hemoglobin 11.3 g/dL (14.0-18.0); Mean Corpuscular Hemoglobin 30.4 pg (25-34); Mean Corpuscular Hgb Conc 33.7 g/dL (32-36); Mean Corpuscular Volume 90.1 fL (80-100); Mean Platelet Volume 10.7 fL (7.4-10.4); Platelet Count 208 K/uL (130-400); RDW Coefficient of Variation 15.3 % (11.5-14.5); RDW Standard Deviation 49.1 fL (36.4-46.3); Red Blood Count 3.72 M/uL (4.7-6.1); White Blood Count 8.47 K/uL (4.8-10.8)
[2021-11-26 06:45] LABS: BUN Creatinine Ratio 25.9 (10-20); Calcium 8.2 mg/dl (8.5-10.1); Creatinine Clr Calc Pharmacy 37.5 ml/min; Est GFR (African American) 50.8 ml/min; Est GFR (Non-African American) 43.8 ml/min; Magnesium 1.7 mg/dl (1.7-2.4); Phosphorus 3.2 mg/dl (2.5-4.9); Potassium 4.1 mmol/L (3.5-5.1)
--- NOTE | 2021-11-26 06:48 | Ultrasound Report ---
US abdomen ltd ascites HISTORY: 81 years-old Male f/u ascites STUDY in a patient with reported abdominal ascites COMPARISON: Ultrasound-guided paracentesis 11/18/2021 TECHNIQUE: Multiple real-time sonographic images of the abdomen were obtained assessing for ascites v olume FINDINGS/IMPRESSION: Small volume of abdominopelvic ascites noted within all 4 quadrants of the abdomen, most pronounced w ithin the abdominal right lower quadrant.. ACT 112: Negative or not required by law. The above report was generated using voice recognition software. It may contain grammatical, syntax o r spelling errors. Electronically signed by: Abdias Bolton M.D. 11/26/2021 6:46 AM
[2021-11-26] MEDS: INSULIN ASPART PER UNIT SC SCH ×4 (08:00→21:30)
[2021-11-26] MEDS ORDERED: MAGNESIUM SULFATE / D5W 1 GM/100 ML BAG IV ONE (08:30)
[2021-11-26] MEDS: ASPIRIN 81 MG ECTAB PO SCH (09:08)
[2021-11-26] MEDS: FUROSEMIDE 20 MG TAB PO SCH (09:10)
[2021-11-26] MEDS: HEPARIN SOD 5,000 UNIT/0.5 ML VIAL SQ SCH ×2 (09:12→20:49)
[2021-11-26] MEDS: nadoloL 40 MG TAB PO SCH (09:14)
[2021-11-26] MEDS: SPIRONOLACTONE 25 MG TAB PO SCH (09:18)
--- NOTE | 2021-11-26 14:14 | Communication Note ---
Date of Service: November 26, 2021 GI communication note: Contacted by primary hospitalist (Dr. Almendarez) to re- evaluate pt for ascites, continued pleural effusion ? hepatohydrothorax. Chart reviewed. Pt currently on low dose diuretics: Lasix 20mg daily + Spironolactone 25mg daily. Cr 1.4, stable. US abd yesterday showed small amt of ascites on 4 abd quadrants. Pt s/p L thoracentesis (1.7L) for pleural effusion. Recommend diuretic titration. Can increase Lasix to 40mg daily + Spironolactone 50mg daily. Monitor renal function and electrolyte closely upon titration of doses. No indication to repeat paracentesis at this time given small volume ascites but can consider and re-eval if he's having abd pain, difficulty breathing from fluid re-accumulation. Otherwise also continue on low sodium (2g) diet. Recall GI prn
--- NOTE | 2021-11-26 17:46 | Hospitalist Progress Note ---
Date of Service November 26, 2021 Assessment & Plan (1) Pleural effusion associated with hepatic disorder: (2) Ascites: (3) RO (nonalcoholic steatohepatitis): Plan: 81-year-old male with PMH of DMII, HTN, dyslipidemia, CAD s/p angioplasty 1985, RO, CKD III, anemia of chronic disease presented to ER 11/17 with complaint of progressive SOB, orthopnea, BLE edema x 3 weeks [employer]. Denies any known weight gain. She is being managed for the following: (1) Volume overload: (2) Pleural effusion: In ER pt afebrile, no hypoxia. No leukocytosis. BNP: 254 CT Chest: Large bilateral pleural effusions with associated atelectasis. No de finite evidence of pneumonia is seen. Partial visualization of cirrhosis and large ascites. DDX: CHF vs decompensated cirrhosis vs combination Cough x 3 months. Initially thought to be BILL related cough and lisinopril decreased and then discontinued. Off for 2 weeks with no change in cough. No leukocytosis. No infiltrate. COVID-19 PCR neg Suspect cough secondary to fluid induced. Monitor I's & O's, daily weight, low sodium diet Lasix 20mg Daily and aldactone Echo done EF 65-70% Pulm on case: Lt thoracentesis 11/20 ---> 1.7L fluid out. Paracentesis transudative, pleural fluid exudative, negative for malignancy. 11/25 Discussed with Pulm, left pleural eff reoccuring. Continue diuresis - dose adjusted, follow-up chest x-ray in AM (3) RO (nonalcoholic steatohepatitis): (4) Ascites: History RO Patient unaware of any diagnosis of cirrhosis, ascites, portal hypertension, varices in past. Denies h/o paracentesis in past. CT Chest with partial visualization of abdomen and reports partial visualization of cirrhosis and large ascites. T: bili: 1.3, AST: 41, ALT: 28, Alk Phos: 124. INR: 1.2 US abdomen diagnostic and therapeutic paracentesis 11/18 (3.2 L out) --> ascites fluid negative for malignancy. Lasix 20mg IV, aldactone, c/w nadolol No abdominal pain, fever or leukocytosis. SBP less likely at this time Continue with low-sodium diet [less than 2 g], no alcohol d/w GI, will uptitrate his diuresis, closely monitor for BMP and ortho vitals. (5) HTN (hypertension): Plan: Recent hypotensive. Still on Lasix and Aldactone. Previously on diltiazem. Was on HCTZ that was d/c secondary to hyponatremia. Lisinopril d/c secondary to cough. Normotensive now Monitor BP (6) CAD (coronary atherosclerotic disease): Plan: S/P angioplasty in 1985 (7) CKD (chronic kidney disease), stage III: Plan: baseline Cr: 1.5 Recent DICK on CKD with Cr up in the 2's. Metformin and HCTZ discontinued (8) Diabetes mellitus, type II: Plan: A1c: 6.7 on 08/2021 Previous on metformin which has been discontinued secondary to CKD Was started on alogliptin which was recently discontinued secondary to suspected CHF Novolog sliding scale per protocol (9) Dyslipidemia: Plan: Continue atorvastatin (10) Anemia: Plan: History anemia of chronic disease Outpatient PCP note reports normal B12, folate and iron store levels. Reported baseline>11 Hgb: 11.2 DVT Prophylaxis -Heparin SQ PT/OT, will try to place in rehab prior to sending home. Full Code Follows with Dr Arron Denny for routine care 11/24 --> patient was apparently started on heparin drip for concerns of atrial fibrillation and cardiology consulted, overnight per cardiology recommendation heparin drip discontinued as there was no concern of atrial fibrillation but EKG showing a large degree of artifact. Cardiology recommended adding low-dose beta-arnulfo [nadolol] given underlying hepatic disease and elevated heart rate. Admission and Anticipated Discharge Date Admission Date: November 17, 2021 Subjective Patient was seen and examined at bedside for RO cirrhosis and associated asc ites and pleural effusion. Patient was sitting up in bed, NAD, has shortness of breath while lying flat and not able to sleep well because of this, no new acute events overnight. Patient reports eating okay. Patient denies any fever/chills/chest pain/palpitations/belly pain/other review of symptoms. Per RN patient is doing okay. During the day I was notified by RN that patient had 6 bowel movements, ordered to send C. difficile. We will follow up on this. Physical Exam Physical Exam: GENERAL: Alert and oriented x3. NAD, on RA. HEENT: No pallor, no icterus. Pupils equal, round and reactive to light. Oral mucosa moist. NECK: No JVD, no neck masses. HEART: S1 and S2 heard. Regular rate and rhythm. No murmur, no gallop. RESPIRATORY SYSTEM: Normal AP diameter. No accessory muscle use. No wheezing, decreased breath sounds especially in the left lower lobe. ABDOMEN: Soft, bowel sounds present, nontender, no distention. CENTRAL NERVOUS SYSTEM: No facial droop. Speech is clear. Obeys simple commands. Moves extremities. EXTREMITIES: Trace ble edema, no erythema seen. Results & Data Results & Data ([facility]) Vital Signs (Past 12 Hours) Vital Signs Temp Pulse Pulse Resp BP Pulse Ox 11/26/21 15:39 36.3 C L 61 18 100/64 97 11/26/21 14:47 57 L 11/26/21 11:30 36.4 C L 56 L 18 101/63 95 11/26/21 08:03 70 11/26/21 07:39 36.6 C 71 18 108/67 95
[2021-11-26] MEDS ORDERED: FUROSEMIDE 20 MG TAB PO STA (17:47)
[2021-11-26] MEDS: ATORVASTATIN 40 MG TAB PO SCH (20:49)
[2021-11-27 06:24] LABS: Hematocrit (blood only) 28.7 % (42-52); Hemoglobin 9.6 g/dL (14.0-18.0); Mean Corpuscular Hemoglobin 29.8 pg (25-34); Mean Corpuscular Hgb Conc 33.4 g/dL (32-36); Mean Corpuscular Volume 89.1 fL (80-100); Mean Platelet Volume 10.6 fL (7.4-10.4); Platelet Count 177 K/uL (130-400); RDW Coefficient of Variation 15.3 % (11.5-14.5); RDW Standard Deviation 48.7 fL (36.4-46.3); Red Blood Count 3.22 M/uL (4.7-6.1); White Blood Count 7.33 K/uL (4.8-10.8)
[2021-11-27 06:45] LABS: BUN Creatinine Ratio 27.7 (10-20); Calcium 7.8 mg/dl (8.5-10.1); Creatinine Clr Calc Pharmacy 34.7 ml/min; Est GFR (African American) 46.2 ml/min; Est GFR (Non-African American) 39.8 ml/min; Magnesium 1.9 mg/dl (1.7-2.4); Potassium 4.3 mmol/L (3.5-5.1)
[2021-11-27] MEDS: INSULIN ASPART PER UNIT SC SCH ×4 (07:29→21:35)
[2021-11-27] MEDS: SPIRONOLACTONE 25 MG TAB PO SCH (08:34)
[2021-11-27] MEDS: FUROSEMIDE 40 MG TAB PO SCH (08:34)
[2021-11-27] MEDS: nadoloL 40 MG TAB PO SCH (08:35)
[2021-11-27] MEDS: ASPIRIN 81 MG ECTAB PO SCH (08:35)
[2021-11-27] MEDS: HEPARIN SOD 5,000 UNIT/0.5 ML VIAL SQ SCH ×2 (08:35→20:44)
--- NOTE | 2021-11-27 15:20 | Hospitalist Progress Note ---
Date of Service November 27, 2021 Assessment & Plan (1) Pleural effusion associated with hepatic disorder: (2) Ascites: (3) RO (nonalcoholic steatohepatitis): Plan: 81-year-old male with PMH of DMII, HTN, dyslipidemia, CAD s/p angioplasty 1985, RO, CKD III, anemia of chronic disease presented to ER 11/17 with complaint of progressive SOB, orthopnea, BLE edema x 3 weeks [employer]. Denies any known weight gain. She is being managed for the following: (1) Volume overload: (2) Pleural effusion: In ER pt afebrile, no hypoxia. No leukocytosis. BNP: 254 CT Chest: Large bilateral pleural effusions with associated atelectasis. No de finite evidence of pneumonia is seen. Partial visualization of cirrhosis and large ascites. DDX: CHF vs decompensated cirrhosis vs combination Cough x 3 months. Initially thought to be BILL related cough and lisinopril decreased and then discontinued. Off for 2 weeks with no change in cough. No leukocytosis. No infiltrate. COVID-19 PCR neg Suspect cough secondary to fluid induced. Monitor I's & O's, daily weight, low sodium diet Lasix 20mg Daily and aldactone Echo done EF 65-70% Pulm on case: Lt thoracentesis 11/20 ---> 1.7L fluid out. Paracentesis transudative, pleural fluid exudative, negative for malignancy. 11/25 Discussed with Pulm, left pleural eff reoccuring. Continue diuresis - dose adjusted, follow-up chest x-ray in AM monitor BMP closely, FR 2L, Low sod diet (3) RO (nonalcoholic steatohepatitis): (4) Ascites: History RO Patient unaware of any diagnosis of cirrhosis, ascites, portal hypertension, varices in past. Denies h/o paracentesis in past. CT Chest with partial visualization of abdomen and reports partial visualization of cirrhosis and large ascites. T: bili: 1.3, AST: 41, ALT: 28, Alk Phos: 124. INR: 1.2 US abdomen diagnostic and therapeutic paracentesis 11/18 (3.2 L out) --> ascites fluid negative for malignancy. Lasix 40mg IV, aldactone 50 mg, c/w nadolol No abdominal pain, fever or leukocytosis. SBP less likely at this time Continue with low-sodium diet [less than 2 g], no alcohol, FR 2L Closely monitor for BMP and ortho vitals. (5) HTN (hypertension): Plan: Recent hypotensive. Still on Lasix and Aldactone. Previously on diltiazem. Was on HCTZ that was d/c secondary to hyponatremia. Lisinopril d/c secondary to cough. Normotensive now Monitor BP (6) CAD (coronary atherosclerotic disease): Plan: S/P angioplasty in 1985 (7) CKD (chronic kidney disease), stage III: Plan: baseline Cr: 1.5 Recent DICK on CKD with Cr up in the 2's. Metformin and HCTZ discontinued (8) Diabetes mellitus, type II: Plan: A1c: 6.7 on 08/2021 Previous on metformin which has been discontinued secondary to CKD Was started on alogliptin which was recently discontinued secondary to suspected CHF Novolog sliding scale per protocol (9) Dyslipidemia: Plan: Continue atorvastatin (10) Anemia: Plan: History anemia of chronic disease Outpatient PCP note reports normal B12, folate and iron store levels. Reported baseline>11 Hgb: 11.2 DVT Prophylaxis -Heparin SQ PT/OT, CM to assist with DC planning. Likely discharge in next 1 to 2 days. OP Palliativ care f/u. Full Code Follows with Dr Arron Denny for routine care 11/24 --> patient was apparently started on heparin drip for concerns of atrial fibrillation and cardiology consulted, overnight per cardiology recommendation heparin drip discontinued as there was no concern of atrial fibrillation but EKG showing a large degree of artifact. Cardiology recommended adding low-dose beta-arnulfo [nadolol] given underlying hepatic disease and elevated heart rate. 11/27 ----> patient updated about his current status, explained the prognosis of liver cirrhosis and the nature of recurrent ascites down the road and other complications from cirrhosis. RN for the day was present at bedside. She also made sure that the patient understood everything we talked. Patient was informed about palliative care discussion down the road, and patient agreed. Nursing navigator made aware. Admission and Anticipated Discharge Date Admission Date: November 17, 2021 Subjective Patient was seen and examined at bedside for RO cirrhosis and associated ascites and pleural effusion. Patient was sitting up in chair, NAD, room air, reports improving shortness of breath while lying flat and slept well overnight. no new acute events overnight. Patient reports eating okay. Patient denies any fever/chills/chest pain/palpitations/belly pain/other review of symptoms. Per RN patient is doing okay. Patient reports no further diarrheal bowel movements after yesterday morning's episode. Physical Exam Physical Exam: GENERAL: Alert and oriented x3. NAD, on RA. HEENT: No pallor, no icterus. Pupils equal, round and reactive to light. Oral mucosa moist. NECK: No JVD, no neck masses. HEART: S1 and S2 heard. Regular rate and rhythm. No murmur, no gallop. RESPIRATORY SYSTEM: Normal AP diameter. No accessory muscle use. No wheezing, decreased breath sounds bibasal ABDOMEN: Soft, bowel sounds present, nontender, no distention. CENTRAL NERVOUS SYSTEM: No facial droop. Speech is clear. Obeys simple commands. Moves extremities. EXTREMITIES: Trace ble edema, no erythema seen. Results & Data Results & Data ([facility]) Vital Signs (Past 12 Hours) Vital Signs Temp Pulse Pulse Resp BP Pulse Ox 11/27/21 11:56 36.8 C 54 L 18 105/64 97 11/27/21 08:30 36.5 C 63 18 103/63 94 11/27/21 07:18 68 11/27/21 03:16 36.5 C 63 18 94/59 L 95
--- NOTE | 2021-11-27 17:32 | Pulmonology Progress Note ---
Date of Service November 27, 2021 Assessment & Plan (1) Pleural effusion associated with hepatic disorder: (2) Volume overload: (3) Ascites: Plan: Patient with a mildly exudative effusion by LDH of unclear etiology. Cytology negative. This may be related to a spontaneous bacterial pleuritis given the ascites seen. Additionally, pleural fluid may be mildly exudative due to diuresis. Additionally, there is a lymphocytic predominance of the pleural effusion. Although the cytology was negative, malignancy is not completely ruled out. Pleural cultures negative thus far. AFB smear and cultures negative thus far as well. Triglyceride level pending to evaluate for chylothorax although this would appear less likely. Can consider repeat thoracentesis in the future if he becomes more symptomatic. Thanks for the consult. Pulmonary will sign off. Please call with questions. Admission and Anticipated Discharge Date Admission Date: November 17, 2021 Subjective Patient sitting up in the chair. On room air. Denies shortness of breath. No chest pain. Physical Exam Physical Exam: Constitutional: Patient appears to be of their stated age. Patient is in no apparent distress. Patient is well-developed. Eyes: Pupils are equal round and reactive to light. Conjunctivae are normal. Anicteric sclera. Ears nose, mouth and throat: No obvious deformities. Neck: Trachea is midline. Visual inspection is normal. Respiratory: Minimal bibasilar crackles. Remove bandages from the left thoracentesis site. Cardiovascular: Regular rate and rhythm. No murmurs. No edema. Gastrointestinal: Normal bowel sounds, soft, nontender and nondistended. No hepatosplenomegaly noted. Musculoskeletal: No cyanosis. Patient is able to move all extremities. Skin: No rashes, warm dry and intact. Neurologic: No obvious focal neurological deficits seen. Psychiatric: Alert and oriented x3 with a euthymic affect. Results & Data Results & Data ([facility]) Vital Signs (Past 12 Hours) Vital Signs Temp Pulse Pulse Resp BP BP Pulse Ox 11/27/21 15:55 36.3 C L 55 L 18 94/59 L 96 11/27/21 15:08 55 L 11/27/21 11:56 36.8 C 54 L 18 105/64 97 11/27/21 08:30 36.5 C 63 18 103/63 94 11/27/21 07:18 68 PG Care Time/CCT Total # of Minutes Spent Total Time Spent with Patient: Total time spent is greater than 50% in coordination of care (as documented) at patient's floor/unit and/or counseling patient: Coding Level of Care Code 01023 Subseq Hosp Care Lvl 2 Diagnoses Pleural effusion associated with hepatic disorder K76.9; J91.8 Volume overload E87.70 Ascites R18.8
[2021-11-27] MEDS: ATORVASTATIN 40 MG TAB PO SCH (20:44)
[2021-11-28 06:28] LABS: Hematocrit (blood only) 27.7 % (42-52); Hemoglobin 9.6 g/dL (14.0-18.0); Mean Corpuscular Hemoglobin 30.7 pg (25-34); Mean Corpuscular Hgb Conc 34.7 g/dL (32-36); Mean Corpuscular Volume 88.5 fL (80-100); Mean Platelet Volume 10.5 fL (7.4-10.4); Platelet Count 179 K/uL (130-400); RDW Coefficient of Variation 15.5 % (11.5-14.5); RDW Standard Deviation 48.7 fL (36.4-46.3); Red Blood Count 3.13 M/uL (4.7-6.1)
[2021-11-28 06:53] LABS: BUN Creatinine Ratio 28.2 (10-20); Calcium 7.7 mg/dl (8.5-10.1); Creatinine Clr Calc Pharmacy 33.8 ml/min; Est GFR (African American) 44.8 ml/min; Est GFR (Non-African American) 38.7 ml/min
--- NOTE | 2021-11-28 06:56 | XRay Report ---
XR chest 1V portable CLINICAL HISTORY: f/u COMPARISON STUDY: Chest CT November 17, 2021. Chest radiograph November 24, 2021. FINDINGS: Left pleural effusion has increased in size, now likely large in size. Suspected moderate r ight pleural effusion is noted. Pulmonary edema has increased. Cardiomediastinal silhouette is stable . There is no pneumothorax. Lung volumes are diminished which is unchanged. IMPRESSION: 1. Increase in size of a large left pleural effusion. Suspected moderate right pleural effusion. 2. Increase in pulmonary edema. 3. No pneumothorax. ACT 112: Negative or not required by law. Electronically signed by: Ammon Morales M.D. 11/28/2021 6:55 AM
[2021-11-28] MEDS: SPIRONOLACTONE 25 MG TAB PO SCH (08:03)
[2021-11-28] MEDS: FUROSEMIDE 40 MG TAB PO SCH (08:04)
[2021-11-28] MEDS: nadoloL 40 MG TAB PO SCH (08:04)
[2021-11-28] MEDS: ASPIRIN 81 MG ECTAB PO SCH (08:05)
[2021-11-28] MEDS: INSULIN ASPART PER UNIT SC SCH ×4 (08:05→20:24)
[2021-11-28] MEDS: HEPARIN SOD 5,000 UNIT/0.5 ML VIAL SQ SCH ×2 (08:05→20:06)
[2021-11-28] MEDS ORDERED: SPIRONOLACTONE 25 MG TAB PO ONE (11:00)
--- NOTE | 2021-11-28 15:45 | Hospitalist Progress Note ---
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 Denies any known weight gain. She is being managed for the following: (1) Volume overload: (2) Pleural effusion: In ER pt afebrile, no hypoxia. No leukocytosis. BNP: 254 CT Chest: Large bilateral pleural effusions with associated atelectasis. No de finite evidence of pneumonia is seen. Partial visualization of cirrhosis and large ascites. DDX: CHF vs decompensated cirrhosis vs combination Cough x 3 months. Initially thought to be BILL related cough and lisinopril decreased and then discontinued. Off for 2 weeks with no change in cough. No leukocytosis. No infiltrate. COVID-19 PCR neg Suspect cough secondary to fluid induced. Monitor I's & O's, daily weight, low sodium diet Lasix 40mg Daily and aldactone 100 mg daily Echo done EF 65-70% Pulm on case: Lt thoracentesis 11/20 ---> 1.7L fluid out. Paracentesis transudative, pleural fluid exudative, negative for malignancy. 11/25 Discussed with Pulm, left pleural eff reoccuring. Consider conservative management as of now until patient has difficulty breathing. Continue diuresis - dose adjusted again today, follow-up x-ray today revealing worsening pleural effusion but patient reports no problem with breathing, patient made aware. [facility] consult with nephrology 11/28, adjustment of dose of spironolactone. Continue to monitor clinically and lab greene. monitor BMP closely, FR 1.8L, Low sod diet, RN made aware (3) RO (nonalcoholic steatohepatitis): (4) Ascites: History RO Patient unaware of any diagnosis of cirrhosis, ascites, portal hypertension, varices in past. Denies h/o paracentesis in past. CT Chest with partial visualization of abdomen and reports partial visualization of cirrhosis and large ascites. T: bili: 1.3, AST: 41, ALT: 28, Alk Phos: 124. INR: 1.2 US abdomen diagnostic and therapeutic paracentesis 11/18 (3.2 L out) --> ascites fluid negative for malignancy. Lasix 40mg IV, aldactone 50 mg, c/w nadolol No abdominal pain, fever or leukocytosis. SBP less likely at this time Continue with low-sodium diet [less than 2 g], no alcohol, FR 1.8L Closely monitor for BMP and ortho vitals. (5) HTN (hypertension): Plan: Recent hypotensive. Still on Lasix and Aldactone. Previously on diltiazem. Was on HCTZ that was d/c secondary to hyponatremia. Lisinopril d/c secondary to cough. Normotensive now Monitor BP (6) CAD (coronary atherosclerotic disease): Plan: S/P angioplasty in 1985 (7) CKD (chronic kidney disease), stage III: Plan: baseline Cr: 1.5 Recent DICK on CKD with Cr up in the 2's. Metformin and HCTZ discontinued (8) Diabetes mellitus, type II: Plan: A1c: 6.7 on 08/2021 Previous on metformin which has been discontinued secondary to CKD Was started on alogliptin which was recently discontinued secondary to suspected CHF Novolog sliding scale per protocol (9) Dyslipidemia: Plan: Continue atorvastatin (10) Anemia: Plan: History anemia of chronic disease Outpatient PCP note reports normal B12, folate and iron store levels. Reported baseline>11 Hgb: fairly stable around 9-10. DVT Prophylaxis -Heparin SQ PT/OT, CM to assist with DC planning. Likely discharge in next 1 to 2 days. OP Palliativ care f/u. Full Code Follows with Dr Arron Denny for routine care 11/24 --> patient was apparently started on heparin drip for concerns of atrial fibrillation and cardiology consulted, overnight per cardiology recommendation heparin drip discontinued as there was no concern of atrial fibrillation but EKG showing a large degree of artifact. Cardiology recommended adding low-dose beta-arnulfo [nadolol] given underlying hepatic disease and elevated heart rate. 11/27 ----> patient updated about his current status, explained the prognosis of liver cirrhosis and the nature of recurrent ascites down the road and other complications from cirrhosis. RN for the day was present at bedside. She also made sure that the patient understood everything we talked. Patient was informed about palliative care discussion down the road, and patient agreed. Nursing navigator made aware. Admission and Anticipated Discharge Date Admission Date: November 17, 2021 Subjective Patient was seen and examined at bedside for RO cirrhosis and associated ascites and pleural effusion. Patient was sitting up in at the edge of bed, NAD, room air, reports improving shortness of breath while lying flat and slept well overnight. no new acute events overnight. Patient reports eating okay and moving bowels okay. Patient denies any fever/chills/chest pain/palpitations/belly pain/other review of symptoms. Per RN patient is doing okay. Per RN, patient is doing okay. Physical Exam Physical Exam: GENERAL: Alert and oriented x3. NAD, on RA. HEENT: No pallor, no icterus. Pupils equal, round and reactive to light. Oral mucosa moist. NECK: No JVD, no neck masses. HEART: S1 and S2 heard. Regular rate and rhythm. No murmur, no gallop. RESPIRATORY SYSTEM: Normal AP diameter. No accessory muscle use. No wheezing, decreased breath sounds bibasal left greater than right ABDOMEN: Soft, bowel sounds present, nontender, no distention. CENTRAL NERVOUS SYSTEM: No facial droop. Speech is clear. Obeys simple commands. Moves extremities. EXTREMITIES: Trace ble edema, no erythema seen. Results & Data Results & Data ([facility]) Vital Signs (Past 12 Hours) Vital Signs Temp Pulse Pulse Resp BP Pulse Ox Pulse Ox 11/28/21 15:18 36.5 C 54 L 17 106/50 L 98 11/28/21 14:54 52 L 11/28/21 11:08 36.5 C 50 L 19 96/57 L 97 11/28/21 10:18 59 L 11/28/21 08:00 94 11/28/21 07:40 36.7 C 66 18 110/65 94
[2021-11-28] MEDS: ATORVASTATIN 40 MG TAB PO SCH (20:06)
[2021-11-29 06:07] LABS: BUN Creatinine Ratio 30.9 (10-20); Calcium 7.8 mg/dl (8.5-10.1); Est GFR (African American) 45.1 ml/min; Est GFR (Non-African American) 38.9 ml/min; Magnesium 1.9 mg/dl (1.7-2.4); Phosphorus 3.7 mg/dl (2.5-4.9); Potassium 4.3 mmol/L (3.5-5.1)
[2021-11-29] MEDS: INSULIN ASPART PER UNIT SC SCH ×4 (07:49→20:33)
[2021-11-29] MEDS: nadoloL 40 MG TAB PO SCH (07:49)
[2021-11-29] MEDS: ASPIRIN 81 MG ECTAB PO SCH (07:49)
[2021-11-29] MEDS: SPIRONOLACTONE 100 MG TAB PO SCH (07:50)
[2021-11-29] MEDS: FUROSEMIDE 40 MG TAB PO SCH (07:50)
[2021-11-29] MEDS: HEPARIN SOD 5,000 UNIT/0.5 ML VIAL SQ SCH ×2 (07:50→20:15)
--- NOTE | 2021-11-29 15:26 | Hospitalist Progress Note ---
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 Denies any known weight gain. She is being managed for the following: (1) Volume overload: (2) Pleural effusion: In ER pt afebrile, no hypoxia. No leukocytosis. BNP: 254 CT Chest: Large bilateral pleural effusions with associated atelectasis. No de finite evidence of pneumonia is seen. Partial visualization of cirrhosis and large ascites. DDX: CHF vs decompensated cirrhosis vs combination Cough x 3 months. Initially thought to be BILL related cough and lisinopril decreased and then discontinued. Off for 2 weeks with no change in cough. No leukocytosis. No infiltrate. COVID-19 PCR neg Suspect cough secondary to fluid induced. Monitor I's & O's, daily weight, low sodium diet Lasix 40mg Daily and aldactone 100 mg daily Echo done EF 65-70% Pulm on case: Lt thoracentesis 11/20 ---> 1.7L fluid out. Paracentesis transudative, pleural fluid exudative, negative for malignancy. 11/25 Discussed with Pulm, left pleural eff reoccuring. Consider conservative management as of now until patient has difficulty breathing. Continue diuresis -dose has been adjusted multiple times, patient's blood pressure is running low normal, follow-up x-ray 11/28 revealing worsening pleural effusion but patient reports no problem with breathing, patient made aware. [facility] consult with nephrology 11/28, adjustment of dose of spironolactone. Continue to monitor clinically and lab greene. monitor BMP closely, FR 1.8L, Low sod diet, RN made aware Repeat an x-ray tomorrow to progress improvement, consider pulmonology rediscussion if no improvement. (3) RO (nonalcoholic steatohepatitis): (4) Ascites: History RO Patient unaware of any diagnosis of cirrhosis, ascites, portal hypertension, varices in past. Denies h/o paracentesis in past. CT Chest with partial visualization of abdomen and reports partial visualization of cirrhosis and large ascites. T: bili: 1.3, AST: 41, ALT: 28, Alk Phos: 124. INR: 1.2 US abdomen diagnostic and therapeutic paracentesis 11/18 (3.2 L out) --> ascites fluid negative for malignancy. Lasix 40mg IV, aldactone 100 mg, c/w nadolol No abdominal pain, fever or leukocytosis. SBP less likely at this time Continue with low-sodium diet [less than 2 g], no alcohol, FR 1.8L Closely monitor for BMP and ortho vitals. (5) HTN (hypertension): Plan: Recent hypotensive. Still on Lasix and Aldactone. Previously on diltiazem. Was on HCTZ that was d/c secondary to hyponatremia. Lisinopril d/c secondary to cough. Normotensive now Monitor BP (6) CAD (coronary atherosclerotic disease): Plan: S/P angioplasty in 1985 (7) CKD (chronic kidney disease), stage III: Plan: baseline Cr: 1.5 Recent DICK on CKD with Cr up in the 2's. Metformin and HCTZ discontinued (8) Diabetes mellitus, type II: Plan: A1c: 6.7 on 08/2021 Previous on metformin which has been discontinued secondary to CKD Was started on alogliptin which was recently discontinued secondary to suspected CHF Novolog sliding scale per protocol (9) Dyslipidemia: Plan: Continue atorvastatin (10) Anemia: Plan: History anemia of chronic disease Outpatient PCP note reports normal B12, folate and iron store levels. Reported baseline>11 Hgb: fairly stable around 9-10. DVT Prophylaxis -Heparin SQ PT/OT, CM to assist with DC planning. Likely discharge in next 1 to 2 days ?? unsure. OP Palliativ care f/u. Full Code Follows with Dr Arron Denny for routine care 11/24 --> patient was apparently started on heparin drip for concerns of atrial fibrillation and cardiology consulted, overnight per cardiology recommendation heparin drip discontinued as there was no concern of atrial fibrillation but EKG showing a large degree of artifact. Cardiology recommended adding low-dose beta-arnulfo [nadolol] given underlying hepatic disease and elevated heart rate. 11/27 ----> patient updated about his current status, explained the prognosis of liver cirrhosis and the nature of recurrent ascites down the road and other complications from cirrhosis. RN for the day was present at bedside. She also made sure that the patient understood everything we talked. Patient was informed about palliative care discussion down the road, and patient agreed. Nursing navigator made aware. Admission and Anticipated Discharge Date Admission Date: November 17, 2021 Subjective Patient was seen and examined at bedside for RO cirrhosis and associated ascites and pleural effusion. Patient was sitting up in Chair, NAD, room air, reports improving shortness of breath while lying flat and slept well overnight. no new acute events o vernight. Patient reports eating okay and moving bowels okay. Patient denies any fever/chills/chest pain/palpitations/belly pain/other review of symptoms. Per RN, patient is doing okay. No new acute events overnight. Physical Exam Physical Exam: GENERAL: Alert and oriented x3. NAD, on RA. HEENT: No pallor, no icterus. Pupils equal, round and reactive to light. Oral mucosa moist. NECK: No JVD, no neck masses. HEART: S1 and S2 heard. Regular rate and rhythm. No murmur, no gallop. RESPIRATORY SYSTEM: Normal AP diameter. No accessory muscle use. No wheezing, decreased breath sounds bibasal left greater than right ABDOMEN: Soft, bowel sounds present, nontender, no distention. CENTRAL NERVOUS SYSTEM: No facial droop. Speech is clear. Obeys simple commands. Moves extremities. EXTREMITIES: Trace ble edema, no erythema seen. Results & Data Results & Data ([facility]) Vital Signs (Past 12 Hours) Vital Signs Temp Pulse Pulse Resp BP Pulse Ox 11/29/21 15:08 36.5 C 50 L 18 107/66 98 11/29/21 11:21 36.4 C L 51 L 18 102/62 96 11/29/21 08:39 58 L 11/29/21 08:22 36.6 C 60 18 99/58 L 93
[2021-11-29] MEDS: ATORVASTATIN 40 MG TAB PO SCH (20:15)
[2021-11-30] MEDS: INSULIN ASPART PER UNIT SC SCH ×4 (07:47→20:53)
[2021-11-30] MEDS: SPIRONOLACTONE 100 MG TAB PO SCH (07:54)
[2021-11-30] MEDS: nadoloL 40 MG TAB PO SCH (07:54)
[2021-11-30] MEDS: FUROSEMIDE 40 MG TAB PO SCH (07:54)
[2021-11-30] MEDS: ASPIRIN 81 MG ECTAB PO SCH (07:54)
[2021-11-30] MEDS: HEPARIN SOD 5,000 UNIT/0.5 ML VIAL SQ SCH (07:55)
[2021-11-30 07:57] LABS: Calcium 7.8 mg/dl (8.5-10.1); Creatinine Clr Calc Pharmacy 33.6 ml/min; Est GFR (African American) 44.5 ml/min; Est GFR (Non-African American) 38.4 ml/min; Potassium 4.3 mmol/L (3.5-5.1)
--- NOTE | 2021-11-30 08:26 | XRay Report ---
SINGLE VIEW CHEST CLINICAL HISTORY: Follow-up pleural effusion FINDINGS: An AP, portable, upright chest radiograph is compared to study dated 11/28/2021. The heart i s enlarged noting atherosclerotic calcification of the thoracic aorta. There is pulmonary vascular co ngestion. There are left larger than right pleural effusions with bibasilar consolidation. No pneumot horax is seen. The skeletal structures are osteopenic. The bony thorax is grossly intact. Surgical an chors are present in the right humeral head. IMPRESSION: 1. Cardiomegaly with evidence of congestive failure. 2. Left larger than right pleural effusions with bibasilar consolidation. ACT 112: Negative or not required by law. Electronically signed by: Richard Tejada M.D. 11/30/2021 8:25 AM
[2021-11-30 11:42] LABS: INR 1.1 (0.9-1.1); Prothrombin Time 11.1 Seconds (9.0-12.0)
--- NOTE | 2021-11-30 13:18 | Pulmonology Progress Note ---
Date of Service November 30, 2021 Assessment & Plan (1) Pleural effusion associated with hepatic disorder: (2) Volume overload: (3) Ascites: Plan: --Bilateral Pleural effusions s/p left sided thoracentesis: - 1.7 liters of pleural fluid. Pleural fluid studies suggest a lymphocytic exudate. Cytology negative. Pleural fluid culture negative Reaccumulation of fluid on the left side --History of liver cirrhosis Plan: Patient not in significant respiratory distress. We will consider thoracentesis again tomorrow the patient is still complaining of shortness of breath Hold heparin Recommend aggressive diuresis. There is high likelihood of reaccumulation of fluid on the left side as I think it is most likely coming from the belly. Patient is agreeable for the procedure if need be. Please note the above document was generated using voice recognition software. It may contain grammatical, syntax or spelling errors.Any formal questions or concerns about the content, text or information contained within the body of this dictation should be directly addressed to the provider for clarification. Admission and Anticipated Discharge Date Admission Date: November 17, 2021 Subjective Patient seen and examined at bedside. No acute distress, no adverse events overnight. Patient states that he does get short of breath especially when he is laying down. When he is sitting up it does not bother him much Denies any chest pain, no headache, no dizziness, no nausea or vomiting Fair appetite. Review of Systems Review of Systems: All systems reviewed & are unremarkable except as noted in Subjective Physical Exam Physical Exam: Constitutional: No acute distress HEENT: EOMI, PERRLA Respiratory system: Decreased air entry bilaterally, more decreased on the left side, no wheeze, rhonchi, positive crackles bilaterally CVS: S1-S2 positive, no murmurs or gallops Abdomen: Soft, nontender, nondistended, positive bowel sounds x4 Extremities: +2 pulses bilaterally radialis/ dorsalis pedis, no cyanosis, minimal edema Neuro: Awake alert oriented x3 Psych: Normal mood and affect G/U: No Bauer Skin: no rashes, warm and dry Lymphatic: no cervical or axillary lymphadenopathy Results & Data Results & Data ([facility]) Vital Signs (Past 12 Hours) Vital Signs Temp Pulse Resp BP Pulse Ox 11/30/21 11:11 48 L 20 104/60 97 11/30/21 07:57 36.6 C 58 L 16 119/69 95 11/30/21 03:02 36.4 C L 56 L 16 102/64 94 Laboratory Results 11/28/21 05:50 11/30/21 07:14 PG Care Time/CCT Total # of Minutes Spent Total Time Spent with Patient: Total time spent is greater than 50% in coordination of care (as documented) at patient's floor/unit and/or counseling patient: Coding Level of Care Code 14296 Subseq Hosp Care Lvl 2 Diagnoses Pleural effusion associated with hepatic disorder K76.9; J91.8 Volume overload E87.70 Ascites R18.8
--- NOTE | 2021-11-30 13:23 | Procedure Note ---
Procedure Note Date of Service November 30, 2021 Note Bedside Ultrasound: Left lung: Moderate to large left-sided pleural effusion, B-lines appreciated posteriorly, a lines anteriorly Right lung: Small to moderate pleural effusion, B-lines appreciated posteriorly, a lines anteriorly Please note the above document was generated using voice recognition software. It may contain grammatical, syntax or spelling errors.Any formal questions or concerns about the content, text or information contained within the body of this dictation should be directly addressed to the provider for clarification. Coding CPT Codes Pulmonary/Thoracic - Pulmonary and Thoracic: 38869 US, Chest, real time with imaging documentation ([id number]) [facility] [place] Codes (Charges) Pulmonary/Thoracic Procedure 1: Pulmonary and Thoracic: 30635 US, Chest, real time with imaging documentation
--- NOTE | 2021-11-30 13:52 | Hospitalist Progress Note ---
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 She is being managed for the following: (1) Volume overload: (2) Pleural effusion: In ER pt afebrile, no hypoxia. No leukocytosis. BNP: 254 CT Chest: Large bilateral pleural effusions with associated atelectasis. No de finite evidence of pneumonia is seen. Partial visualization of cirrhosis and large ascites. DDX: CHF vs decompensated cirrhosis vs combination Cough x 3 months. Initially thought to be BILL related cough and lisinopril decreased and then discontinued. Off for 2 weeks with no change in cough. No leukocytosis. No infiltrate. COVID-19 PCR neg Suspect cough secondary to fluid induced. Monitor I's & O's, daily weight, low sodium diet Lasix 40mg Daily and aldactone 100 mg daily Echo done EF 65-70% Pulm on case: Lt thoracentesis 11/20 ---> 1.7L fluid out. Paracentesis transudative, pleural fluid exudative, negative for malignancy. 11/25 Discussed with Pulm, left pleural eff reoccuring. Consider conservative management as of now until patient has difficulty breathing. Continue diuresis -dose has been adjusted multiple times, patient's blood pressure is running low normal, follow-up x-ray 11/28 and 11/30 revealing worsening pleural effusion Curbside consult with nephrology 11/28, adjustment of dose of spironolactone. Continue to monitor clinically and lab greene. 11/30 d/w Pulm again, plan for left thoracentesis roscoe, holding heparin monitor BMP closely, FR 1.8L, Low sod diet (3) RO (nonalcoholic steatohepatitis): (4) Ascites: History RO Patient unaware of any diagnosis of cirrhosis, ascites, portal hypertension, varices in past. Denies h/o paracentesis in past. CT Chest with partial visualization of abdomen and reports partial visualization of cirrhosis and large ascites. T: bili: 1.3, AST: 41, ALT: 28, Alk Phos: 124. INR: 1.2 US abdomen diagnostic and therapeutic paracentesis 11/18 (3.2 L out) --> ascites fluid negative for malignancy. Lasix 40mg PO, aldactone 100 mg, c/w nadolol No abdominal pain, fever or leukocytosis. SBP less likely at this time Continue with low-sodium diet [less than 2 g], no alcohol, FR 1.8L Will give iv albumin for 2 days. Closely monitor for BMP and ortho vitals. (5) HTN (hypertension): Plan: Recent hypotensive. Still on Lasix and Aldactone. Previously on diltiazem. Was on HCTZ that was d/c secondary to hyponatremia. Lisinopril d/c secondary to cough. Normotensive now Monitor BP (6) CAD (coronary atherosclerotic disease): Plan: S/P angioplasty in 1985 (7) CKD (chronic kidney disease), stage III: Plan: baseline Cr: 1.5 Recent DICK on CKD with Cr up in the 2's. Metformin and HCTZ discontinued (8) Diabetes mellitus, type II: Plan: A1c: 6.7 on 08/2021 Previous on metformin which has been discontinued secondary to CKD Was started on alogliptin which was recently discontinued secondary to suspected CHF Novolog sliding scale per protocol (9) Dyslipidemia: Plan: Continue atorvastatin (10) Anemia: Plan: History anemia of chronic disease Outpatient PCP note reports normal B12, folate and iron store levels. Reported baseline>11 Hgb: fairly stable around 9-10. DVT Prophylaxis -Heparin SQ PT/OT, CM to assist with DC planning. For left thoracentesis tomorrow. OP Palliativ care f/u. Full Code Follows with Dr Arron Denny for routine care 11/24 --> patient was apparently started on heparin drip for concerns of atrial fibrillation and cardiology consulted, overnight per cardiology recommendation heparin drip discontinued as there was no concern of atrial fibrillation but EKG showing a large degree of artifact. Cardiology recommended adding low-dose beta-arnulfo [nadolol] given underlying hepatic disease and elevated heart rate. 11/27 ----> patient updated about his current status, explained the prognosis of liver cirrhosis and the nature of recurrent ascites down the road and other complications from cirrhosis. RN for the day was present at bedside. She also made sure that the patient understood everything we talked. Patient was informed about palliative care discussion down the road, and patient agreed. Nursing navigator made aware. Admission and Anticipated Discharge Date Admission Date: November 17, 2021 Subjective Patient was seen and examined at bedside for RO cirrhosis and associated ascites and pleural effusion. Patient was sitting up in Chair, NAD, room air, reports some shortness of breath while lying flat but ok sitting up/semi upright. no new acute events overnight. Patient reports eating fair and moving bowels okay. Patient denies any fever/chills/chest pain/palpitations/belly pain/other review of symptoms. Per RN, patient is doing okay. No new acute events overnight. Physical Exam Physical Exam: GENERAL: Alert and oriented x3. NAD, on RA. HEENT: No pallor, no icterus. Pupils equal, round and reactive to light. Oral mucosa moist. NECK: No JVD, no neck masses. HEART: S1 and S2 heard. Regular rate and rhythm. No murmur, no gallop. RESPIRATORY SYSTEM: Normal AP diameter. No accessory muscle use. No wheezing, decreased breath sounds bibasal left greater than right ABDOMEN: Soft, bowel sounds present, nontender, no distention. CENTRAL NERVOUS SYSTEM: No facial droop. Speech is clear. Obeys simple commands. Moves extremities. EXTREMITIES: 1-2 + ble edema -- has increased today, no erythema seen. Results & Data Results & Data ([facility]) Vital Signs (Past 12 Hours) Vital Signs Temp Pulse Resp BP Pulse Ox 11/30/21 11:11 48 L 20 104/60 97 11/30/21 07:57 36.6 C 58 L 16 119/69 95 11/30/21 03:02 36.4 C L 56 L 16 102/64 94
[2021-11-30] MEDS: ALBUMIN 25% 100 mL 25 GM/100 ML VIAL IV SCH ×2 (13:59→20:17)
[2021-11-30] MEDS: ATORVASTATIN 40 MG TAB PO SCH (20:17)
[2021-12-01] MEDS: ALBUMIN 25% 100 mL 25 GM/100 ML VIAL IV SCH ×3 (06:00→21:56)
[2021-12-01 06:49] LABS: Calcium 8.4 mg/dl (8.5-10.1); Creatinine Clr Calc Pharmacy 34.4 ml/min; Est GFR (African American) 45.8 ml/min; Est GFR (Non-African American) 39.5 ml/min; Magnesium 1.9 mg/dl (1.7-2.4); Potassium 4.2 mmol/L (3.5-5.1)
[2021-12-01] MEDS: nadoloL 40 MG TAB PO SCH (08:38)
[2021-12-01] MEDS: SPIRONOLACTONE 100 MG TAB PO SCH (08:39)
[2021-12-01] MEDS: FUROSEMIDE 40 MG TAB PO SCH (08:39)
[2021-12-01] MEDS: INSULIN ASPART PER UNIT SC SCH ×4 (08:40→20:41)
[2021-12-01] MEDS: ASPIRIN 81 MG ECTAB PO SCH (08:40)
[2021-12-01 13:20] LABS: Glucose Pleural Fluid 124 mg/dl
[2021-12-01 13:25] LABS: Amylase Pleural Fluid 50 U/L; LDH Pleural Fluid 118 U/L
[2021-12-01 13:31] LABS: Appearance Pleural Fluid HAZY; Basophils, Fluid 0 %; Color Pleural Fluid AMBER; Eosinophils, Fluid 0 %; Lymphocytes, Fluid 66 %; Mono,Macrophage,Mesothelial 31 %; Neutrophils, Fluid 3 %; RBC Pleural Fluid (A) 14000 /uL; Source Pleural Fluid LEFT LUNG; WBC Pleural Fluid (A) 621 /uL
[2021-12-01 13:31] LABS: Albumin Level 3.2 gm/dl (3.4-5.0); Bilirubin,Total 1.1 mg/dl (0.2-1.0); Total Protein 6.3 gm/dl (6.0-8.3)
--- NOTE | 2021-12-01 14:00 | XRay Report ---
XR chest 1V portable CLINICAL HISTORY: post thoracentesis. Evaluate for pneumothorax COMPARISON STUDY: 11/30/2021 TECHNIQUE: 1 view of the chest FINDINGS: Single frontal view of the chest demonstrates the cardiomediastinal silhouette to be within normal li mits. The patient is status post interval left thoracentesis with no evidence for pneumothorax. Minim al residual blunting of left costophrenic angle is present. There is minimal residual left basilar at electasis. The lungs are clear of alveolar opacities. There is no evidence for vascular congestion. T here is no acute osseous pathology. IMPRESSION: Status post left thoracentesis with no evidence for pneumothorax. Residual blunting of th e left costophrenic angle is present with minimal residual left basilar atelectasis. ACT 112: Negative or not required by law. Electronically signed by: Brendon Rollins M.D. 12/01/2021 1:58 PM
--- NOTE | 2021-12-01 14:20 | Hospitalist Progress Note ---
Date of Service December 01, 2021 Assessment & Plan (1) Pleural effusion associated with hepatic disorder: (2) Ascites: (3) RO (nonalcoholic steatohepatitis): Plan: 81-year-old male with PMH of DMII, HTN, dyslipidemia, CAD s/p angioplasty 1985, RO, CKD III, anemia of chronic disease presented to ER 11/17 with complaint of progressive SOB, orthopnea, BLE edema x 3 weeks [employer]. Denies any known weight gain. She is being managed for the following: (1) Volume overload: (2) Pleural effusion: In ER pt afebrile, no hypoxia. No leukocytosis. BNP: 254 CT Chest: Large bilateral pleural effusions with associated atelectasis. No de finite evidence of pneumonia is seen. Partial visualization of cirrhosis and large ascites. DDX: CHF vs decompensated cirrhosis vs combination Cough x 3 months. Initially thought to be BILL related cough and lisinopril decreased and then discontinued. Off for 2 weeks with no change in cough. No leukocytosis. No infiltrate. COVID-19 PCR neg Suspect cough secondary to fluid induced. Monitor I's & O's, daily weight, low sodium diet Lasix 40mg Daily and aldactone 100 mg daily Echo done EF 65-70% Pulm on case: Lt thoracentesis 11/20 ---> 1.7L fluid out. Paracentesis transudative, pleural fluid exudative, negative for malignancy. 11/25 Discussed with Pulm, left pleural eff reoccuring. Consider conservative management as of now until patient has difficulty breathing. Continue diuresis -dose has been adjusted multiple times, patient's blood pressure is running low normal, follow-up x-ray 11/28 and 11/30 revealing worsening pleural effusion Curbside consult with nephrology 11/28, adjustment of dose of spironolactone. Continue to monitor clinically and lab greene. 12/01 Pt for left thoracentesis today, f/u analysis, path and culture. monitor BMP closely, FR 1.8L, Low sod diet (3) RO (nonalcoholic steatohepatitis): (4) Ascites: History RO Patient unaware of any diagnosis of cirrhosis, ascites, portal hypertension, varices in past. Denies h/o paracentesis in past. CT Chest with partial visualization of abdomen and reports partial visualization of cirrhosis and large ascites. T: bili: 1.3, AST: 41, ALT: 28, Alk Phos: 124. INR: 1.2 US abdomen diagnostic and therapeutic paracentesis 11/18 (3.2 L out) --> ascites fluid negative for malignancy. Lasix 40mg PO, aldactone 100 mg, c/w nadolol No abdominal pain, fever or leukocytosis. SBP less likely at this time Continue with low-sodium diet [less than 2 g], no alcohol, FR 1.8L c/w iv albumin for 2 days. Closely monitor for BMP and ortho vitals. (5) HTN (hypertension): Plan: Recent hypotensive. Still on Lasix and Aldactone. Previously on diltiazem. Was on HCTZ that was d/c secondary to hyponatremia. Lisinopril d/c secondary to cou gh. Normotensive now Monitor BP (6) CAD (coronary atherosclerotic disease): Plan: S/P angioplasty in 1985 (7) CKD (chronic kidney disease), stage III: Plan: baseline Cr: 1.5 Recent DICK on CKD with Cr up in the 2's. Metformin and HCTZ discontinued (8) Diabetes mellitus, type II: Plan: A1c: 6.7 on 08/2021 Previous on metformin which has been discontinued secondary to CKD Was started on alogliptin which was recently discontinued secondary to suspected CHF Novolog sliding scale per protocol (9) Dyslipidemia: Plan: Continue atorvastatin (10) Anemia: Plan: History anemia of chronic disease Outpatient PCP note reports normal B12, folate and iron store levels. Reported baseline>11 Hgb: fairly stable around 9-10. DVT Prophylaxis -Heparin SQ PT/OT, CM to assist with DC planning. Patient medically stable for discharge, patient does not want to go home today. He states that he has things to be arranged at home. OP Palliativ care f/u. Full Code Follows with Dr Arron Denny for routine care 11/24 --> patient was apparently started on heparin drip for concerns of atrial fibrillation and cardiology consulted, overnight per cardiology recommendation heparin drip discontinued as there was no concern of atrial fibrillation but EKG showing a large degree of artifact. Cardiology recommended adding low-dose beta-arnulfo [nadolol] given underlying hepatic disease and elevated heart rate. 11/27 ----> patient updated about his current status, explained the prognosis of liver cirrhosis and the nature of recurrent ascites down the road and other complications from cirrhosis. RN for the day was present at bedside. She also made sure that the patient understood everything we talked. Patient was informed about palliative care discussion down the road, and patient agreed. Nursing navigator made aware. Admission and Anticipated Discharge Date Admission Date: November 17, 2021 Subjective Patient was seen and examined at bedside for RO cirrhosis and associated ascites and pleural effusion. Patient was sitting up in Chair, NAD, room air, reports some shortness of breath while lying flat but ok sitting up/semi upright. no new acute events overnight. Patient reports eating fair and moving bowels okay. Patient denies any fever/chills/chest pain/palpitations/belly pain/other review of symptoms. Per RN, patient is doing okay. No new acute events overnight. Pt going for left thoracentesis today. Physical Exam Physical Exam: GENERAL: Alert and oriented x3. NAD, on RA. HEENT: No pallor, no icterus. Pupils equal, round and reactive to light. Oral mucosa moist. NECK: No JVD, no neck masses. HEART: S1 and S2 heard. Regular rate and rhythm. No murmur, no gallop. RESPIRATORY SYSTEM: Normal AP diameter. No accessory muscle use. No wheezing, decreased breath sounds bibasal left greater than right ABDOMEN: Soft, bowel sounds present, nontender, no distention. CENTRAL NERVOUS SYSTEM: No facial droop. Speech is clear. Obeys simple commands. Moves extremities. EXTREMITIES: 1-2 + ble edema -- has increased today, no erythema seen. Results & Data Results & Data ([facility]) Vital Signs (Past 12 Hours) Vital Signs Temp Pulse Pulse Resp BP BP Pulse Ox 12/01/21 10:45 36.4 C L 70 19 106/62 96 12/01/21 07:36 36.5 C 72 20 103/64 94 12/01/21 06:30 58 L 12/01/21 03:56 36.8 C 55 L 18 99/56 L 97
--- NOTE | 2021-12-01 14:54 | Pulmonology Progress Note ---
Date of Service December 01, 2021 Assessment & Plan (1) Pleural effusion associated with hepatic disorder: (2) Volume overload: (3) Ascites: Plan: --Bilateral Pleural effusions s/p left sided thoracentesis: - 1.7 liters of pleural fluid. Pleural fluid studies suggest a lymphocytic exudate. Cytology negative. 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 Patient needs frequent paracentesis done so that we can prevent reaccumulation of fluid in the pleural space Plan for thoracentesis today. Risk and benefit of the procedure expanded the patient in depth. Please note the above document was generated using voice recognition software. It may contain grammatical, syntax or spelling errors.Any formal questions or concerns about the content, text or information contained within the body of this dictation should be directly addressed to the provider for clarification. Admission and Anticipated Discharge Date Admission Date: November 17, 2021 Subjective Patient seen and examined at bedside. No acute distress, no adverse events overnight Denies any headache, no nausea, no vomiting. No fever or chills no headache. Patient is urinating well Review of Systems Review of Systems: All systems reviewed & are unremarkable except as noted in Subjective Physical Exam Physical Exam: Constitutional: No acute distress HEENT: EOMI, PERRLA Respiratory system: Decreased air entry bilaterally, more decreased on the left side, no wheeze, rhonchi, positive crackles bilaterally CVS: S1-S2 positive, no murmurs or gallops Abdomen: Soft, nontender, nondistended, positive bowel sounds x4 Extremities: +2 pulses bilaterally radialis/ dorsalis pedis, no cyanosis, minimal edema Neuro: Awake alert oriented x3 Psych: Normal mood and affect G/U: No Bauer Skin: no rashes, warm and dry Lymphatic: no cervical or axillary lymphadenopathy Results & Data Results & Data ([facility]) Vital Signs (Past 12 Hours) Vital Signs Temp Pulse Pulse Resp BP BP Pulse Ox 12/01/21 10:45 36.4 C L 70 19 106/62 96 12/01/21 07:36 36.5 C 72 20 103/64 94 12/01/21 06:30 58 L 12/01/21 03:56 36.8 C 55 L 18 99/56 L 97 Laboratory Results 11/28/21 05:50 12/01/21 06:04 PG Care Time/CCT Total # of Minutes Spent Total Time Spent with Patient: Total time spent is greater than 50% in coordination of care (as documented) at patient's floor/unit and/or counseling patient: Coding Level of Care Code 78847 Subseq Hosp Care Lvl 2 Diagnoses Pleural effusion associated with hepatic disorder K76.9; J91.8 Volume overload E87.70 Ascites R18.8
--- NOTE | 2021-12-01 14:59 | Procedure Note ---
Procedure Note Date of Service December 01, 2021 Note Procedure: Diagnostic therapeutic ultrasound-guided catheter thoracentesis [employer]: Dr. Celena Loya Indication: Left-sided pleural effusion Consent: Signed by patient and verified with timeout prior to procedure Anesthesia: 1% lidocaine without epinephrine local. Procedure: Consent was verified and timeout performed. Appropriate imaging studies were reviewed prior to the procedure. Patient was placed in a seated position and limited thoracic ultrasound was performed of the left chest. See separate imaging. Appropriate site above the diaphragm for thoracentesis was selected. The skin was prepped and draped in normal sterile fashion. Lidocaine was used for local analgesia. Fluid was aspirated via the finder needle. A small skin rony was made with the scalpel and the catheter over the needle apparatus was advanced over the rib into the pleural space. Using the syringe one-way valve system, a total of 1700 mL's of cloudy serosanguineous fluid was removed. The catheter was removed and observed to be intact. A sterile dressing was applied. Post procedure chest x-ray was ordered. Fluid was sent for labs, culture and cytology. Complications: None Blood loss: Less than 1 cc Coding CPT Codes Pulmonary/Thoracic - Pulmonary and Thoracic: 16538 Thoracentesis w imaging ([id number]) [facility] Procedure Codes (Charges) Pulmonary/Thoracic Procedure 1: Pulmonary and Thoracic: 84132 Thoracentesis w imaging
[2021-12-01] MEDS: HEPARIN SOD 5,000 UNIT/0.5 ML VIAL SQ SCH (21:56)
[2021-12-01] MEDS: ATORVASTATIN 40 MG TAB PO SCH (21:56)
[2021-12-02] MEDS: ALBUMIN 25% 100 mL 25 GM/100 ML VIAL IV SCH (05:45)
[2021-12-02 08:23] LABS: BUN Creatinine Ratio 28.7 (10-20); Calcium 8.7 mg/dl (8.5-10.1); Creatinine Clr Calc Pharmacy 32.3 ml/min; Est GFR (African American) 43.5 ml/min; Est GFR (Non-African American) 37.5 ml/min; Potassium 4.1 mmol/L (3.5-5.1)
[2021-12-02] MEDS: INSULIN ASPART PER UNIT SC SCH ×4 (08:28→22:01)
[2021-12-02] MEDS: SPIRONOLACTONE 100 MG TAB PO SCH (08:30)
[2021-12-02] MEDS: FUROSEMIDE 40 MG TAB PO SCH (08:30)
[2021-12-02] MEDS: nadoloL 40 MG TAB PO SCH (08:31)
[2021-12-02] MEDS: HEPARIN SOD 5,000 UNIT/0.5 ML VIAL SQ SCH ×2 (08:31→21:37)
[2021-12-02] MEDS: ASPIRIN 81 MG ECTAB PO SCH (08:31)
--- NOTE | 2021-12-02 12:22 | Hospitalist Progress Note ---
Date of Service December 02, 2021 Assessment & Plan (1) Pleural effusion associated with hepatic disorder: (2) Ascites: (3) RO (nonalcoholic steatohepatitis): Plan: 81-year-old male with PMH of DMII, HTN, dyslipidemia, CAD s/p angioplasty 1985, RO, CKD III, anemia of chronic disease presented to ER 11/17 with complaint of progressive SOB, orthopnea, BLE edema x 3 weeks [employer]. Denies any known weight gain. She is being managed for the following: (1) Volume overload: (2) Pleural effusion: In ER pt afebrile, no hypoxia. No leukocytosis. BNP: 254 CT Chest: Large bilateral pleural effusions with associated atelectasis. No de finite evidence of pneumonia is seen. Partial visualization of cirrhosis and large ascites. DDX: CHF vs decompensated cirrhosis vs combination Cough x 3 months. Initially thought to be BILL related cough and lisinopril decreased and then discontinued. Off for 2 weeks with no change in cough. No leukocytosis. No infiltrate. COVID-19 PCR neg Cough secondary to fluid overload Continue to monitor I's & O's, daily weight, fluid restriction, low sodium diet Lasix 40mg Daily and aldactone 100 mg daily Echo done EF 65-70% Pulm on case: Lt thoracentesis 11/20 ---> 1.7L fluid out. Paracentesis transudative, pleural fluid exudative, negative for malignancy. 12/01 Pt for left thoracentesis today, f/u analysis, path and culture. (3) RO (nonalcoholic steatohepatitis) cirrhosis: (4) Ascites: History RO Patient unaware of any diagnosis of cirrhosis, ascites, portal hypertension, varices in past. Denies h/o paracentesis in past. CT Chest with partial visualization of abdomen and reports partial visualization of cirrhosis and large ascites. T: bili: 1.3, AST: 41, ALT: 28, Alk Phos: 124. INR: 1.2 US abdomen diagnostic and therapeutic paracentesis 11/18 (3.2 L out) --> ascites fluid negative for malignancy. Lasix 40mg PO, aldactone 100 mg, c/w nadolol No abdominal pain, fever or leukocytosis. SBP less likely at this time Continue with low-sodium diet [less than 2 g], no alcohol, FR 1.8L Got iv albumin for 2 days. Patient fell yesterday. Appears sluggish today No overt asterixis Last ammonia level was 85 on 11/26. Will recheck Start lactulose to ensure regular BM, atleast 3BM/day Patient needs f/u with GI on discharge (5) HTN (hypertension): Plan: Still on Lasix and Aldactone. Previously on diltiazem. Was on HCTZ that was d/c secondary to hyponatremia. Lisinopril d/c secondary to cough. Normotensive now Monitor BP (6) CAD (coronary atherosclerotic disease): Plan: S/P angioplasty in 1985 (7) CKD (chronic kidney disease), stage III: Plan: baseline Cr: 1.5 Recent DICK on CKD with Cr up in the 2's. Metformin and HCTZ discontinued (8) Diabetes mellitus, type II: Plan: A1c: 6.7 on 08/2021 Previous on metformin which has been discontinued secondary to CKD Was started on alogliptin which was recently discontinued secondary to suspected CHF Novolog sliding scale per protocol (9) Dyslipidemia: Plan: Continue atorvastatin (10) Anemia: Plan: History anemia of chronic disease Outpatient PCP note reports normal B12, folate and iron store levels. Reported baseline>11 Hgb: fairly stable around 9-10. DVT Prophylaxis -Heparin SQ PT/OT, CM to assist with DC planning. Patient medically stable for discharge OP Palliativ care f/u. Full Code Follows with Dr Arron Denny for routine care 11/24 --> patient was apparently started on heparin drip for concerns of atrial fibrillation and cardiology consulted, overnight per cardiology recommendation heparin drip discontinued as there was no concern of atrial fibrillation but EKG showing a large degree of artifact. Cardiology recommended adding low-dose b eta-arnulfo [nadolol] given underlying hepatic disease and elevated heart rate. I do not think patient is stable for dc home safely at this time considering he lives by himself. He will benefit from SNF placement. This patient is at high risk for readmission \ Called patient's [id number] and updated. She agreea with plan Admission and Anticipated Discharge Date Admission Date: November 17, 2021 Subjective Patient seen and examined. Patient denies any acute complaints. Reports breathing is better than on admission. Denies any abdominal pain. Denies any fevers, chills Denies nausea, vomiting, diarrhea. Per RN, patient had 1 bowel movement today and did not have any yesterday Patient appears sluggish today per RN and PT. Patient also had a fall yesterday. Was able to lower himself to the ground without hitting head/anywhere per patient and RN Denied dysuria, freq, urgency Physical Exam Constitutional: + well hydrated; no acute distress Eyes: PERRL, conjunctivae normal, anicteric sclerae ENMT: external ear and nose normal, oropharynx normal Respiratory: normal respiratory effort; no respiratory distress Diminished breath sounds lung bases Cardiovascular: Rate/Rhythm: regular rate and regular rhythm S1 S2 Gastrointestinal (Abdomen): Not distended, soft, nontender, +BS Musculoskeletal: Trace edema Neurologic: PERRL, EOMI, accommodation nl, no face palsy, no dysarthria Sluggish Psychiatric: A+Ox3, euthymic affect Results & Data Results & Data ([facility]) Vital Signs (Past 12 Hours) Vital Signs Temp Pulse Resp BP Pulse Ox 12/02/21 07:41 36.4 C L 67 18 108/66 96 Laboratory Results Abnormal lab results 12/01/21 12/01/21 12/01/21 Range/Units 12:41 16:16 20:33 Sodium (136-145) mmol/L BUN (6-23) mg/dl Creatinine (0.6-1.4) mg/dl BUN/Creatinine Ratio (10-20) POC Glucose 120 H 139 H (70-99) mg/dl Total Bilirubin 1.1 H (0.2-1.0) mg/dl Albumin 3.2 L (3.4-5.0) gm/dl Pleural pH (7.3-7.4) 12/01/21 12/02/21 12/02/21 Range/Units Unknown 07:40 11:54 Sodium 131 L (136-145) mmol/L BUN 48 H (6-23) mg/dl Creatinine 1.67 H (0.6-1.4) mg/dl BUN/Creatinine Ratio 28.7 H (10-20) POC Glucose 154 H (70-99) mg/dl Total Bilirubin (0.2-1.0) mg/dl Albumin (3.4-5.0) gm/dl Pleural pH 7.46 H (7.3-7.4)
[2021-12-02] MEDS: LACTULOSE SYRUP 20 GM/30 ML UDC PO SCH ×2 (12:43→21:37)
[2021-12-02] MEDS: ATORVASTATIN 40 MG TAB PO SCH (21:37)
[2021-12-03 06:17] LABS: Hematocrit (blood only) 29.2 % (42-52); Hemoglobin 9.7 g/dL (14.0-18.0); Mean Corpuscular Hemoglobin 29.8 pg (25-34); Mean Corpuscular Hgb Conc 33.2 g/dL (32-36); Mean Corpuscular Volume 89.6 fL (80-100); Mean Platelet Volume 10.8 fL (7.4-10.4); Platelet Count 215 K/uL (130-400); RDW Coefficient of Variation 16.3 % (11.5-14.5); RDW Standard Deviation 51.5 fL (36.4-46.3); Red Blood Count 3.26 M/uL (4.7-6.1); White Blood Count 6.64 K/uL (4.8-10.8)
[2021-12-03 06:36] LABS: INR 1.3 (0.9-1.1); Prothrombin Time 12.8 Seconds (9.0-12.0)
[2021-12-03 07:06] LABS: Albumin Globulin Ratio 1.2 (0.9-2); Albumin Level 3.4 gm/dl (3.4-5.0); Bilirubin,Total 1.7 mg/dl (0.2-1.0); Calcium 9.1 mg/dl (8.5-10.1); Est GFR (African American) 41.4 ml/min; Est GFR (Non-African American) 35.7 ml/min; Globulin 2.9 gm/dl (2.5-4.0); Phosphorus 3.9 mg/dl (2.5-4.9); Total Protein 6.3 gm/dl (6.0-8.3)
[2021-12-03] MEDS: FUROSEMIDE 40 MG TAB PO SCH (08:42)
[2021-12-03] MEDS: LACTULOSE SYRUP 20 GM/30 ML UDC PO SCH ×2 (08:42→21:40)
[2021-12-03] MEDS: SPIRONOLACTONE 100 MG TAB PO SCH (08:42)
[2021-12-03] MEDS: nadoloL 40 MG TAB PO SCH (08:42)
[2021-12-03] MEDS: ASPIRIN 81 MG ECTAB PO SCH (08:42)
[2021-12-03] MEDS: INSULIN ASPART PER UNIT SC SCH ×4 (08:44→22:15)
[2021-12-03] MEDS: HEPARIN SOD 5,000 UNIT/0.5 ML VIAL SQ SCH ×2 (09:03→21:40)
--- NOTE | 2021-12-03 13:35 | Hospitalist Progress Note ---
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 (1) Volume overload: (2) Pleural effusion: CT Chest: Large bilateral pleural effusions with associated atelectasis. No definite evidence of pneumonia is seen. Partial visualization of cirrhosis and large ascites DDX: CHF vs decompensated cirrhosis vs combination Cough x 3 months. Initially thought to be BILL related cough and lisinopril decreased and then discontinued. Off for 2 weeks with no change in cough. No leukocytosis. No infiltrate. COVID-19 PCR neg Cough secondary to fluid overload Continue to monitor I's & O's, daily weight, fluid restriction, low sodium diet Lasix 40mg Daily and aldactone 100 mg daily Echo done EF 65-70% Pulm on case: Lt thoracentesis 11/20 ---> 1.7L fluid out Paracentesis transudative, pleural fluid exudative, negative for malignancy Patient also had left thoracentesis on 12/01/21 Cultures negative so far (3) RO (nonalcoholic steatohepatitis) cirrhosis: (4) Ascites: History RO Patient unaware of any diagnosis of cirrhosis, ascites, portal hypertension, varices in past. Denies h/o paracentesis in past. CT Chest with partial visualization of abdomen and reports partial visualization of cirrhosis and large ascites. T: bili: 1.3, AST: 41, ALT: 28, Alk Phos: 124. INR: 1.2 US abdomen diagnostic and therapeutic paracentesis 11/18 (3.2 L out) --> ascites fluid negative for malignancy. Lasix 40mg PO, aldactone 100 mg, c/w nadolol No abdominal pain, fever or leukocytosis. SBP less likely at this time Continue with low-sodium diet [less than 2 g], no alcohol, FR 1.8L Got iv albumin for 2 days. Patient fell on 12/01/21. Appeared sluggish on 12/02/21 Ammonia level was 85 on 11/26 and was 135 on 12/02/21 Was started on lactulose on 12/02/21 Patient needs f/u with GI on discharge (5) HTN (hypertension): Still on Lasix and Aldactone. Previously on diltiazem. Was on HCTZ that was d/c secondary to hyponatremia. Lisinopril d/c secondary to cough Normotensive now -monitor BP (6) CAD (coronary atherosclerotic disease): S/P angioplasty in 1985 (7) CKD (chronic kidney disease), stage III: Baseline Cr: 1.5 Recent DICK on CKD with Cr up in the 2's. Metformin and HCTZ discontinued with improved Cr to 1.74. Continue to monitor (8) Diabetes mellitus, type II: A1c: 6.7 on 08/2021 Previous on metformin which has been discontinued secondary to CKD Was started on alogliptin which was recently discontinued secondary to suspected CHF Novolog sliding scale per protocol (9) Dyslipidemia: Continue atorvastatin (10) Anemia: History anemia of chronic disease Outpatient PCP note reports normal B12, folate and iron store levels. Reported baseline>11 Hgb: fairly stable around 9-10 DVT Prophylaxis: SQ heparin Full Code Follows with Dr Arron Denny for routine care Awaiting SNF placement. Patient seen in collaboration with Dr. Marin. Please see addendum. Admission and Anticipated Discharge Date Admission Date: November 17, 2021 Supervising Physician Co-Signing Physician Notes Patient seen and examined. Patient reports increased BM Per RN, had about 5 BM since yesterday. Most recent was semiformed Discussed with RN to hold lactulose once patient has had 3 BM in a day RN report patient more active today Cr mildly increased to 1.7. Monitor renal function Patient agreed for placement. CM working on this Agree with plans as detailed by Sandra Serna PA-C Subjective Patient seen and examined in 388-1. Diarrhea overnight, endorsing 5 episodes. Denies any other new complaints. Reports breathing is better than on admission. No F/C, chest pain, N/V, abdominal pain, dysuria. Tolerating diet without issue. Review of Systems Review of Systems: At least ten systems reviewed and negative except as noted in the HPI. Physical Exam Physical Exam: Gen: WD/WN, NAD, resting comfortably in bed, A&Ox3 HEENT: Normocephalic, atraumatic, conjunctivae moist, sclerae anicteric, mucous membranes moist Lung: Clear to Auscultation bilaterally but diminished at bases, no wheezes/rales/rhonchi Heart: Regular rate, regular rhythm, no murmurs, rubs, or gallops Abdomen: Soft, NT, ND +BS x 4 Extremities: trace ble edema Skin: Warm, no rash Results & Data Results & Data ([facility]) Vital Signs (Past 12 Hours) Vital Signs Temp Pulse Resp BP Pulse Ox 12/03/21 07:43 36.4 C L 56 L 15 102/64 96 Laboratory Results Short CBC 12/03/21 Range/Units 05:14 WBC 6.64 (4.8-10.8) K/uL Hgb 9.7 L (14.0-18.0) g/dL Hct 29.2 L (42-52) % Plt Count 215 (130-400) K/uL BMP 12/03/21 05:14 Sodium 134 L Potassium 4.0 Chloride 101 Carbon Dioxide 22 BUN 47 H Creatinine 1.74 H Glucose 102 H Calcium 9.1 Liver Function 12/03/21 Range/Units 05:14 Total Bilirubin 1.7 H D (0.2-1.0) mg/dl AST 42 H (13-39) U/L ALT 35 (7-52) U/L Alkaline Phosphatase 107 H (34-104) U/L Albumin 3.4 (3.4-5.0) gm/dl Diagnostic Findings Chest X-Ray 11/17/21 12:20 XR chest 1V portable CLINICAL HISTORY: Atypical chest pain TECHNIQUE: Single frontal radiograph of the chest was obtained. Comparison: None available at the time of this dictation. FINDINGS: No lines and tubes are seen. The cardiomediastinal silhouette is normal. Left pleural effusion is seen. Lungs are underinflated and there is a left retrocardiac opacity. IMPRESSION: 1. Left retrocardiac opacity which may represent atelectasis, pneumonia, and/or aspiration. 2. Left pleural effusion. ACT 112: Negative or not required by law. Electronically signed by: Arron Don M.D. 11/17/2021 12:[address] 11/17/21 13:13 CT chest diagnostic w con CLINICAL HISTORY: ? rll infiltrate vs CHF TECHNIQUE: Multidetector row helical CT of the chest was performed. Coronal and sagittal reformations were obtained. Automated dose lowering techniques and/or adjustment according to patient size were utilized for this exam. Comparison: None available at the time of this dictation. FINDINGS: Lungs and pleura: Large bilateral pleural effusions are seen, with associated atelectasis. Heart and pericardium: Heart size is normal. No pericardial effusion. Vessels: Severe atherosclerotic changes in the aorta and coronary arteries. Mediastinum and james: Unremarkable. Chest wall and lower neck: Unremarkable. Abdomen: Partial visualization of cirrhosis and large ascites. Bones: Degenerative changes in the thoracic spine. IMPRESSION: 1. Large bilateral pleural effusions with associated atelectasis. No definite evidence of pneumonia is seen. 2. Partial visualization of cirrhosis and large ascites. ACT 112: Negative or not required by law. Electronically signed by: Arron Don M.D. 11/17/2021 1:54 PM Paracentesis Ultrasound 11/18/21 00:00 ULTRASOUND GUIDED DIAGNOSTIC AND THERAPEUTIC PARACENTESIS CLINICAL HISTORY: Ascites. COMPARISON STUDY: CT of the abdomen and pelvis February 19, 2013. PROCEDURE: The risks, benefits, and alternatives to the procedure were discussed with the patient including the risk of bleeding, infection and injury to adjacent structures. The patient agreed to the procedure and informed written consent was obtained. Following real-time ultrasound localization, the skin of the right lower quadrant was prepped and draped. Following local anesthesia with Xylocaine, the sheath paracentesis needle was inserted and approximately 3.2 liters of straw-colored fluid was removed by vacuum suction. The patient tolerated the procedure well and no immediate complications were evident. IMPRESSION: Ultrasound-guided paracentesis with removal of 3.2 liters of ascites. 1 L of ascites was sent to the laboratory for analysis as ordered. ACT 112: Negative or not required by law. Electronically signed by: Ammon Morales M.D. 11/18/2021 10:01 AM Abdomen Ultrasound 11/19/21 09:09 ABDOMINAL ULTRASOUND, RIGHT UPPER QUADRANT HISTORY: ?cirrhosis. COMPARISON: Abdomen and pelvis CT 02/19/2013. Chest CT 11/17/2021. FINDINGS: Pancreas: The pancreatic head and tail are obscured by overlying bowel gas. The remaining portions of the pancreas are within normal limits. Liver: Nodular contour to the liver consistent with cirrhosis. The liver demonstrates a coarse echotexture. No definite hepatic masses. Gallbladder: Slightly prominent gallbladder wall measuring 3 mm likely due to the patient's cirrhosis. No gallstones identified. CBD: 5 mm. Right kidney: No hydronephrosis. Miscellaneous: Small amount of ascites and a right pleural effusion. IMPRESSION: 1. Cirrhotic liver morphology with a small amount of ascites and a right pleural effusion. 2. No gallstones. ACT 112: Negative or not required by law. Electronically signed by: Chris Simeon M.D. 11/19/2021 10:35 AM Chest X-Ray 11/19/21 11:04 TWO VIEW CHEST CLINICAL HISTORY: Pleural effusion. FINDINGS: PA and lateral chest radiographs are compared to chest x-ray and chest CT dated 11/17/2021. The heart is mildly enlarged noting atherosclerotic calcification of the thoracic aorta. The pulmonary vasculature is noncongested. There are left larger than right pleural effusions with bibasilar consolidation. This is similar to the 11/17/2021 examination. There is no pneumothorax. The skeletal structures are osteopenic. The bony thorax appears intact. Surgical anc hors are present in the right humeral head. Degenerative change is noted throughout the thoracic spine. IMPRESSION: 1. Left larger than right pleural effusions with bibasilar consolidation. This i s similar to the 11/17/2021 examination. 2. Cardiomegaly. ACT 112: Negative or not required by law. Electronically signed by: Richard Tejada M.D. 11/19/2021 2:21 PM Chest X-Ray 11/20/21 15:57 XR chest 1V portable CLINICAL HISTORY: Status post left thoracentesis. COMPARISON STUDY: Chest CT November 17, 2021. Chest radiograph November 19, 2021. FINDINGS: There is no pneumothorax following left thoracentesis. Left pleural effusion has significantly decreased in size since prior exam. There is a right pleural effusion, likely moderate in size. Pulmonary vascular congestion is noted with possible pulmonary edema. IMPRESSION: 1. No pneumothorax following left thoracentesis. Significant decrease in size of the left pleural effusion. 2. Right pleural effusion. 3. Pulmonary vascular congestion with suspected mild pulmonary edema. ACT 112: Negative or not required by law. Electronically signed by: Ammon Morales M.D. 11/20/2021 5:05 PM Chest X-Ray 11/24/21 12:32 XR chest 2V PA/lateral CLINICAL HISTORY: sob TECHNIQUE: AP and lateral frontal radiograph of the chest was obtained. Comparison: Comparison is made to chest radiographs 11/20/2021 FINDINGS: No lines and tubes are seen. Cardiomegaly is noted. Left retrocardiac opacity is seen. Small right and moderate left pleural effusion. IMPRESSION: Small right and moderate left pleural effusion. Left retrocardiac opacity which may represent atelectasis, pneumonia, and/or aspiration. ACT 112: Negative or not required by law. Electronically signed by: Arron Don M.D. 11/24/2021 2:58 PM Abdomen Ultrasound 11/25/21 18:28 abdomen ltd ascites HISTORY: 81 years-old Male f/u ascites STUDY in a patient with reported abdominal ascites COMPARISON: Ultrasound-guided paracentesis 11/18/2021 TECHNIQUE: Multiple real-time sonographic images of the abdomen were obtained assessing for ascites volume FINDINGS/IMPRESSION: Small volume of abdominopelvic ascites noted within all 4 quadrants of the abdomen, most pronounced within the abdominal right lower quadrant.. ACT 112: Negative or not required by law. The above report was generated using voice recognition software. It may contain grammatical, syntax or spelling errors. Electronically signed by: Abdias Bolton M.D. 11/26/2021 6:46 AM Chest X-Ray 11/28/21 07:00 XR chest 1V portable CLINICAL HISTORY: f/u COMPARISON STUDY: Chest CT November 17, 2021. Chest radiograph November 24, 2021. FINDINGS: Left pleural effusion has increased in size, now likely large in size. Suspected moderate right pleural effusion is noted. Pulmonary edema has increased. Cardiomediastinal silhouette is stable. There is no pneumothorax. Lung volumes are diminished which is unchanged. IMPRESSION: 1. Increase in size of a large left pleural effusion. Suspected moderate right pleural effusion. 2. Increase in pulmonary edema. 3. No pneumothorax. ACT 112: Negative or not required by law. Electronically signed by: Ammon Morales M.D. 11/28/2021 6:55 AM Chest X-Ray 11/30/21 07:00 SINGLE VIEW CHEST CLINICAL HISTORY: Follow-up pleural effusion FINDINGS: An AP, portable, upright chest radiograph is compared to study dated 11/28/2021. The heart is enlarged noting atherosclerotic calcification of the thoracic aorta. There is pulmonary vascular congestion. There are left larger than right pleural effusions with bibasilar consolidation. No pneumothorax is seen. The skeletal structures are osteopenic. The bony thorax is grossly intact. Surgical anchors are present in the right humeral head. IMPRESSION: 1. Cardiomegaly with evidence of congestive failure. 2. Left larger than right pleural effusions with bibasilar consolidation. ACT 112: Negative or not required by law. Electronically signed by: Richard Tejada M.D. 11/30/2021 8:25 AM Chest X-Ray 12/01/21 12:12 XR chest 1V portable CLINICAL HISTORY: post thoracentesis. Evaluate for pneumothorax COMPARISON STUDY: 11/30/2021 TECHNIQUE: 1 view of the chest FINDINGS: Single frontal view of the chest demonstrates the cardiomediastinal silhouette to be within normal limits. The patient is status post interval left thoracentesis with no evidence for pneumothorax. Minimal residual blunting of left costophrenic angle is present. There is minimal residual left basilar atelectasis. The lungs are clear of alveolar opacities. There is no evidence for vascular congestion. There is no acute osseous pathology. IMPRESSION: Status post left thoracentesis with no evidence for pneumothorax. Residual blunting of the left costophrenic angle is present with minimal residual left basilar atelectasis. ACT 112: Negative or not required by law. Electronically signed by: Brendon Rollins M.D. 12/01/2021 1:58 PM
[2021-12-03] MEDS: ATORVASTATIN 40 MG TAB PO SCH (21:40)
[2021-12-04 06:32] LABS: Hematocrit (blood only) 28.3 % (42-52); Hemoglobin 9.5 g/dL (14.0-18.0); Mean Corpuscular Hemoglobin 30.2 pg (25-34); Mean Corpuscular Hgb Conc 33.6 g/dL (32-36); Mean Corpuscular Volume 89.8 fL (80-100); Mean Platelet Volume 10.9 fL (7.4-10.4); Platelet Count 200 K/uL (130-400); RDW Coefficient of Variation 16.2 % (11.5-14.5); RDW Standard Deviation 50.7 fL (36.4-46.3); Red Blood Count 3.15 M/uL (4.7-6.1); White Blood Count 5.61 K/uL (4.8-10.8)
[2021-12-04 07:00] LABS: BUN Creatinine Ratio 27.7 (10-20); Calcium 8.4 mg/dl (8.5-10.1); Creatinine Clr Calc Pharmacy 32.5 ml/min; Est GFR (African American) 43.8 ml/min; Est GFR (Non-African American) 37.8 ml/min; Potassium 3.8 mmol/L (3.5-5.1)
[2021-12-04] MEDS: LACTULOSE SYRUP 20 GM/30 ML UDC PO SCH (09:04)
[2021-12-04] MEDS: HEPARIN SOD 5,000 UNIT/0.5 ML VIAL SQ SCH (09:04)
[2021-12-04] MEDS: nadoloL 40 MG TAB PO SCH (09:06)
[2021-12-04] MEDS: ASPIRIN 81 MG ECTAB PO SCH (09:07)
[2021-12-04] MEDS: FUROSEMIDE 40 MG TAB PO SCH (09:07)
[2021-12-04] MEDS: SPIRONOLACTONE 100 MG TAB PO SCH (09:07)
[2021-12-04] MEDS: INSULIN ASPART PER UNIT SC SCH ×2 (09:38→13:06)
--- NOTE | 2021-12-04 14:14 | Discharge Summary ---
Date of Service December 04, 2021 Admission HPI Per Admitting Provider Patient is 81-year-old male with PMH DMII, HTN, dyslipidemia, CAD s/p angioplasty 1985, RO, CKD III, anemia of chronic disease presented to ER with complaint of shortness of breath x 3 weeks. Patient reports has had non- productive cough for several months. Patient followed with PCP in 08/2021 for cough. At that time it was noted that he had hyponatremia, DICK on CKD. His HCTZ was discontinued. Lisinopril was decreased from 10 mg to 5 mg with plans to discontinue secondary to possible BILL related cough. His metformin was stopped and alogliptin was started secondary to DICK. 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 Follow-up with PCP 11/04/2021 and his off diltiazem and lisinopril secondary to hypotension. Chest x-ray was obtained and showed left pleural effusion. Alogliptin was held secondary to suspected heart failure. Patient reports progressive SOB x 3 weeks. Initially started with SOB with exertion. Now with orthopnea. Has been having to sleep in recliner. He has noticed BLE edema. His daughter in law has noticed increased abdominal distention. He reports has not noticed any weight gain in past 2 weeks. Denies any further dizziness or near syncopal episodes. Denies fever/chills, diaphoresis, N/V/D/C, BRAGG, vision changes, neck pain, CP, palpitations, hemoptysis, sore throat, choking, otalgia, rhinorrhea, abdominal pain, paresthesias, weakness, extremity weakness, extremity edema, rashes, urinary symptoms. Denies any history of known cirrhosis, paracentesis. Admission Exam Per Admitting Provider General: no distress, WDWN Head: normocephalic, atraumatic Eyes: PERRL, EOM's intact, conjunctiva non-injected, anicteric ENT: normal inspection external ears, nose, mucous membranes moist Neck: supple, trachea midline, non-tender Lungs: no respiratory distress with sitting upright, +orthopnea with supine position, diminished breath sounds bilateral bases CV: RRR, no murmur, 2+ pretibial edema Abd: +distended, normal BS, soft, non-tender to palpation Ext: no cyanosis, no calf tenderness Neuro: A&O x 3, no focal deficits noted, normal affect Skin: warm, dry Principal Diagnosis Pleural effusion associated with hepatic disorder Decompensated RO cirrhosis with ascites Discharge Exam Gen: WD/WN, NAD, resting comfortably in bed, A&Ox3 HEENT: Normocephalic, atraumatic, conjunctivae moist, sclerae anicteric, mucous membranes moist Lung: Clear to Auscultation bilaterally but diminished at bases, no wheezes/rales/rhonchi Heart: Regular rate, regular rhythm, no murmurs, rubs, or gallops Abdomen: Soft, NT, ND +BS x 4 Extremities: trace ble edema Skin: Warm, no rash Discharge Data Allergies Allergy/AdvReac Type Severity Reaction Status Date / Time omeprazole Allergy Unknown Unknown Verified 12/01/21 14:24 pantoprazole Allergy Unknown Unknown Verified 12/01/21 14:24 Sulfa (Sulfonamide Allergy Unknown UNKNOWN Verified 12/01/21 14:24 Antibiotics) Consultations 11/17/21 14:00 ED Decision to Admit Stat 11/18/21 14:30 Consult Gastroenterology Routine 11/19/21 15:59 Consult Pulmonology Routine 11/20/21 08:49 Consult Infectious Diseases Routine 11/24/21 15:54 Consult Cardiology Routine Procedures Performed Paracentesis (11/18) Thoracentesis (11/20, 12/01) Ordered Studies 11/17/21 13:13 CT chest diagnostic w con Stat 11/18/21 US paracentesis abd w/image Routine 11/19/21 09:09 US abdomen limited Routine 11/20/21 14:20 US point of care ultrasound Urgent 11/25/21 18:28 US abdomen ltd ascites Routine 11/30/21 10:11 US point of care ultrasound Urgent 12/01/21 11:36 US point of care ultrasound Urgent Hospital Course (1) Pleural effusion associated with hepatic disorder: (2) Ascites: (3) RO (nonalcoholic steatohepatitis): (4) Diabetes mellitus, type II: (5) HTN (hypertension): (6) CKD (chronic kidney disease), stage III: This is a 81-year-old male with PMH of DMII, HTN, dyslipidemia, CAD s/p angioplasty 1985, RO, CKD III, anemia of chronic disease presented to ER 11/17 with complaint of progressive SOB, orthopnea, 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 Initial CT chest with Large bilateral pleural effusions with associated atelectasis. No definite evidence of pneumonia is seen. Partial visualization of cirrhosis and large ascites. Started on Lasix 40mg Daily and Aldactone 100 mg daily for diuretic therapy. GI and pulmonary services involved. Underwent thoracentesis on 11/20 with 1.7 L fluid removal. Paracentesis transudative, pleural fluid exudative, negative for malignancy.Had another Left thoracentesis on 12/01 with negative growth to date, no tumor on pathology. Started on Lactulose and titrated to BID for 3 bowel movements daily. Started on Nadolol 20mg given underlying hepatic disease and elevated heart rate. Continue low sodium, carb consistent diet with 1800 ml fluid restriction. Patient is being discharged to [facility] for continued therapy services. Asymptomatic and hemodynamically stable at time of discharge. Patient needs to follow up with GI and PCP outpatient Total Time Total Time Spent Total Time Spent (In Minutes): 50 Total Time Includes: Examination of the Patient, Discharge Planning and Medication Reconciliation Discharge Plan Discharge Items Patient Disposition: Transfer Inpatient Rehab Fac Reason For Visit: SOB Discharge Diagnosis: Pleural effusion associated with hepatic disorder Decompensated RO cirrhosis with ascites Activity: Resume your previous activity Non-emergency contact: Primary Care Provider Call non-emergency contact if: you have any medication questions, your pain is not controlled, your pain is concerning for you and you have a fever Follow-up/Referrals: Penny Álvarez CRNP [Nurse Practitioner] - ([facility] Gastroenterology Office [address], [place] [address] The Gastroenterology office will call you with an appointment.) Arron Granados MD [Outside Practitioners] - Diet: Carb Consistent or DM2 and Low Sodium (2gm) Fluids: 1800ml (7 cups) Addtl Attending Provider Instructions: You were admitted for volume overload and shortness of breath in the setting of RO cirrhosis. Volume status has improved with starting new medications (diuretics) and also underwent a paracentesis and thoracentesis for fluid removal. NEW MEDICATIONS: Lasix 40mg daily Spironolactone 100mg daily Nadolol 20mg daily Lactulose 20 gm twice a day (titrate to 3 BMs/day- hold dose if >3 BM daily) SUMMARY OF TEST RESULTS: Paracentesis (11/18) - no growth on culture, no malignancy Thoracentesis (12/01) - no growth to date, no tumor present RECOMMENDATIONS FOR FOLLOW-UP: Please follow up with PCP and GI services (information listed above) OTHER INSTRUCTIONS: Seek medical attention if you have: * temperature above 101 * chest pain or trouble breathing * abdominal pain, nausea, vomiting * diarrhea, dark stools or bloody stools * any unanswered questions or concerns Call 911 if symptoms are severe. Please take good care of yourself. Call if you have any questions or problems. You can reach a [facility] hospitalist on duty at [facility] 24 hours a day by calling [phone]. Pending Studies at Discharge: No Stand-Alone Forms: My [facility] Skilled Items Patient informed of condition?: Yes DNR: No Discharge Level of Care: Skilled Communicable Disease: No Discharge Prognosis: Stable Lines: None Urinary Catheter: No Medications and DC Order Prescriptions: New furosemide 40 mg Tablet 40 mg PO QAM Qty: 0 RF: 0 spironolactone 100 mg Tablet 100 mg PO QAM Qty: 0 RF: 0 nadolol 40 mg Tablet 20 mg PO QAM Qty: 0 RF: 0 lactulose 20 gram/30 mL Solution 30 ml PO BID Qty: 30 RF: 0 Continued atorvastatin 80 mg Tablet 40 mg PO HS RF: 0 aspirin 81 mg Tablet,Delayed Release (Dr/Ec) 81 mg PO DAILY RF: 0 Discharge Orders: Discharge Order (Routine); Ordered 12/04/21 Ordered By: Sandra Rosas Admission Data Admit Date/Time: 11/17/21 14:55 Attending Provider: Aby Marin I. Admit Provider: Marilou Springer Primary Care Provider: PCP,NO Other Providers: [facility],Hospital ; [facility] ; Willy Rainey ; Yaritza Davis ; Blu Shannon ; Roxanne Arnold ; Simon Huitron ; Az Keenan ; Kian Byers ; Jay Little ; Penny Álvarez ; Minnie Krueger ; Kimberlee Aguila ; Nelida Fernandes ; Ashok Hilliard ; Marvel Strickland ; Kyler Munson ; Marilin Oden ; Jose Luis Rosas I. ; Kota Vela II ; Tresa Amado ; Remigio Rivera ; Dorian Zhang ; Jose Francisco Ordoñez ; Lilo Almendarez ; [facility] Other Interventions: Discharge Summary Assessment (RN) Last Done: 12/04/21 14:13 Supervising Physician Co-Signing Physician Notes Patient seen and examined Agree with findings and plans as detailed by Sandra Serna PA-C
== END 2021-12-04 15:45 | DRG 433 ==
LOC: ED 11:57 → SUATTDRO 14:55 → EDINP 14:55 → 2S 11-18 18:04 → 3N 12-01 18:28